=== PATIENT | female | born 1970 | race Caucasian/White ===

== ENCOUNTER 2020-03-13 15:00 | Emergency (ER) | payer SELFPAY ==
[2020-03-13 15:06] VITALS: BP 138/71; PULSE 98; RESP 18; TEMP 36.7; O2SAT 98; BMI 34.3
--- NOTE | 2020-03-13 15:24 | USR_ITS ---
PROCEDURE INFORMATION: Exam: US Pelvis, Transvaginal Exam date and time: 03/13/2020 4:13 PM Age: 49 years old Clinical indication: Menstruation abnormalities; Excessive menstruation; With irregular cycle; Prior surgery; Surgery date: 6+ months; Surgery type: Tubal; Additional info: Vag bleed TECHNIQUE: Imaging protocol: Real-time transvaginal pelvic ultrasound with image documentation. Transvaginal imaging was used for better evaluation of the endometrium and adnexa. COMPARISON: No relevant prior studies available. FINDINGS: Uterus/cervix: Multiple Nabothian cysts in the cervix. The uterus measures 9.1 x 5.8 x 6.8 cm. Heterogenous mass in the left myometrium consistent with a fibroid. This abuts the endometrium. This measures 2.2 x 2.3 x 2.6 cm. The endometrium measures 7.9 mm. There is flow in the endometrium on Doppler imaging, it is uncertain whether this could represent hemorrhage, possible endometrial hyperplasia, or an endometrial mass. Right adnexa: The right ovary measures 2.6 x 2.2 x 2.4 cm. There is flow in the right ovary on Doppler imaging. Dominant follicle in the right ovary measuring 1.4 x 0.6 x 1.3 cm. No abnormal adnexal masses. Left adnexa: The left ovary is not definitely visualized. No abnormal adnexal masses. Free fluid: No free fluid in the pelvis. US/US transvaginal [id number] IMPRESSION: 1. The endometrium measures 7.9 mm. There is flow in the endometrium on Doppler imaging, it is uncertain whether this could represent hemorrhage, endometrial hyperplasia or an endometrial mass. Recommend clinical correlation. 2. Intrauterine fibroid in the left myometrium abutting the endometrium. 3. The left ovary is not definitely visualized. No abnormal adnexal masses. 4. Incidental/nonacute findings are listed in the report.
--- NOTE | 2020-03-13 15:26 | W.ED.FEMALGU ---
Documented by User: DELFINA Lindo 03/13/20 15:28 HPI - Female Genitourinary General: Chief complaint: Vaginal Bleeding Stated complaint: VAGINAL BLEEDING Time Seen by Provider: 03/13/20 15:16 History of Present Illness: HPI Narrative: Patient states that the bleeding started yesterday has been pretty heavy denies any problems does 3 of intermittent periods and frequent periods. 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 Patient said she also lifted a fridge yesterday and felt a pull down that area and thought that might be related to it. MD elicited complaint: vaginal bleeding Onset (ago): hour(s) Location of symptoms: vaginal Severity: moderate Vaginal discharge: none Vaginal bleeding: heavy, bright red and # pads per day (4) Exacerbating factors: none Relieving factors: none Associated symptoms: Reports no associated symptoms; Deny abdominal pain, headache(s) or nausea Review of Systems Const: Denies: fever(s), chills or body aches Eyes: Denies: change in vision or blurry vision ENMT: Denies: throat pain or nasal congestion Card: Denies: chest pain or dyspnea on exertion Resp: Denies: dyspnea, productive cough or non-productive cough GI: Denies: abdominal pain, nausea or vomiting : Reports: vaginal bleeding Musc: Denies: extremity pain Skin/Breast: Denies: rash Neuro: Denies: headache(s) Psych: Denies: anxiety or depression Robinson/Lymph: Denies: easy bruising PFSH ED PFSH: Social History Smoking and tobacco status: current every day smoker Physical Exam Const: COMMON NORMALS: no acute distress, average body habitus and patient oriented x3 HENMT: COMMON NORMALS: normocephalic HEAD & SCALP: normal to inspection and normocephalic FACE & SINUS: normal facial exam Eye: COMMON NORMALS: conjunctivae normal GENERAL EYE: appearance normal, both eyes and all related structures CONJUNCTIVA: Yes conjunctivae normal Neck/C-Spine: COMMON NORMALS: no JVD Chest: COMMONS NORMALS: normal inspection of the chest Resp: COMMON NORMALS: normal respiratory effort and clear to auscultation bilaterally AUSCULTATION: clear to auscultation bilaterally Cardio: COMMON NORMALS: no JVD, regular rate and regular rhythm RATE: regular rate RHYTHM: regular rhythm GI: COMMON NORMALS: Normal to inspection, nondistended, normoactive bowel sounds present Extremity: COMMON NORMALS: normal to inspection and full ROM Neuro: COMMON NORMALS: patient oriented x3 Course Vital Signs: Vital signs: Vital Signs Temperature 98.1 F 03/13/20 15:06 Pulse Rate 84 03/13/20 17:05 Respiratory Rate 14 03/13/20 17:05 Blood Pressure 152/84 03/13/20 17:05 Pulse Oximetry 98 03/13/20 17:05 MDM - Female Lab Data: Labs: Lab Results 03/13/20 Range/Units 15:35 WBC 6.2 (4.0-10.0) 10^3/ uL RBC 5.24 (4.1-5.3) 10^6/u L Hgb 13.6 (11.5-15.3) g/dL Hct 43.6 (37.0-47.0) % MCV 83.2 (81-99) fL MCH 26.0 L (28.0-34.0) pg MCHC 31.2 (30.0-36.0) g/dL RDW 14.3 (12.1-15.1) % Plt Count 193 (130-400) 10^3/c mm MPV 10.8 H (7.4-10.4) fL Neut % (Auto) 57.7 % Lymph % (Auto) 33.3 % [place] % (Auto) 5.6 % Eos % (Auto) 2.1 % Baso % (Auto) 1.1 % Neut # (Auto) 3.6 (1.8-7.7) 10^3/u L Lymph # (Auto) 2.1 (0.8-4.8) 10^3/u L [place] # (Auto) 0.4 (0.2-0.9) 10^3/u L Eos # (Auto) 0.1 (0.0-0.8) 10^3/u L Baso # (Auto) 0.1 (0.0-0.1) 10^3/u L Nucleated RBC % (a uto) 0 % Nucleated RBCs # 0.0 /100WBC Discharge Plan Discharge Patient Disposition: Home, Self-Care Clinical Impression: Dysfunctional uterine bleeding Condition: Stable Prescriptions: No Action aspirin 325 mg Tablet 325 mg PO DAILY RF: 0 Discharge Orders: Discharge Order (Routine); Ordered 03/13/20 Ordered By: Jakob Bailey Referrals: Jolene Espinoza DPM [Primary Care Provider] - Discharge Diet: Usual diet Discharge Activity: Increase activity as tolerated Activity Restrictions/Additional Instructions: Drink plenty of fluids. Activity as tolerated. Avoid heavy lifting with bleeding. Return to the ER for increased bleeding with more than 1 pad in 1 hour, or high fever. Follow-up with [facility] for further treatment regarding abnormality on ultrasound. Discharge Date/Time: 03/13/20 17:18 Coding Level of Care Code ED Vibrator Operator for Chg Fwd Exam Comprehensive Documented by User: DELFINA June 03/13/20 17:27 HPI - Female Genitourinary General: Chief complaint: Vaginal Bleeding Stated complaint: VAGINAL BLEEDING Time Seen by Provider: 03/13/20 15:16 PFSH ED PFSH: Social History Smoking and tobacco status: current every day smoker Course ED course: 1700, received patient from Daren Zuniga, Nurse practitioner, awaiting US report, states patient should be discharged with follow-up. wjw Vital Signs: Vital signs: Vital Signs Temperature 98.1 F 03/13/20 15:06 Pulse Rate 84 03/13/20 17:05 Respiratory Rate 14 03/13/20 17:05 Blood Pressure 152/84 03/13/20 17:05 Pulse Oximetry 98 03/13/20 17:05 MDM - Female MDM Narrative: Medical decision making narrative: Patient comes in with bleeding starting this morning. Patient reports she has been having episodes of heavy bleeding with her periods each month. Patient starts that L bleed real heavy for now slow down and then she will get another flow of blood. Patient appears well. Patient appears in no acute distress. Exam was normal. Vital signs were normal. Differential diagnosis includes dysfunctional uterine bleeding, metromenorrhagia, fibroid tumor. CBC noted a hemoglobin hematocrit 13 and 43.6. Ultrasound of the pelvis noted a probable intrauterine fibroid, and possible endometrial hyperplasia. Patient's bleeding was controlled at this time with no significant hemorrhaging. Reviewed exam with patient with recommendations for follow-up with [facility]. Barrier to care consists of patient's lack of insurance. Will request case management to assist patient with follow-up with [facility]. Also discussed need to return to the ER for worsening bleeding or high fever. Patient reported understanding and agreed to plan. Lab Data: Labs: Lab Results 03/13/20 Range/Units 15:35 WBC 6.2 (4.0-10.0) 10^3/ uL RBC 5.24 (4.1-5.3) 10^6/u L Hgb 13.6 (11.5-15.3) g/dL Hct 43.6 (37.0-47.0) % MCV 83.2 (81-99) fL MCH 26.0 L (28.0-34.0) pg MCHC 31.2 (30.0-36.0) g/dL RDW 14.3 (12.1-15.1) % Plt Count 193 (130-400) 10^3/c mm MPV 10.8 H (7.4-10.4) fL Neut % (Auto) 57.7 % Lymph % (Auto) 33.3 % [place] % (Auto) 5.6 % Eos % (Auto) 2.1 % Baso % (Auto) 1.1 % Neut # (Auto) 3.6 (1.8-7.7) 10^3/u L Lymph # (Auto) 2.1 (0.8-4.8) 10^3/u L [place] # (Auto) 0.4 (0.2-0.9) 10^3/u L Eos # (Auto) 0.1 (0.0-0.8) 10^3/u L Baso # (Auto) 0.1 (0.0-0.1) 10^3/u L Nucleated RBC % (a uto) 0 % Nucleated RBCs # 0.0 /100WBC Discharge Plan Discharge Patient Disposition: Home, Self-Care Clinical Impression: Dysfunctional uterine bleeding Condition: Stable Prescriptions: No Action aspirin 325 mg Tablet 325 mg PO DAILY RF: 0 Discharge Orders: Discharge Order (Routine); Ordered 03/13/20 Ordered By: Jakob Bailey Referrals: Jolene Espinoza DPM [Primary Care Provider] - Discharge Diet: Usual diet Discharge Activity: Increase activity as tolerated Activity Restrictions/Additional Instructions: Drink plenty of fluids. Activity as tolerated. Avoid heavy lifting with bleeding. Return to the ER for increased bleeding with more than 1 pad in 1 hour, or high fever. Follow-up with [facility] for further treatment regarding abnormality on ultrasound. Discharge Date/Time: 03/13/20 17:18 Coding Level of Care Code ED Vibrator Operator for Chg Fwd Exam Comprehensive
[2020-03-13 15:42] LABS: Basophils # 0.1 10^3/uL (0.0-0.1); Basophils % 1.1 %; Eosinophils # 0.1 10^3/uL (0.0-0.8); Eosinophils % 2.1 %; Hematocrit 43.6 % (37.0-47.0); Hemoglobin 13.6 g/dL (11.5-15.3); Lymphocytes # 2.1 10^3/uL (0.8-4.8); Lymphocytes % 33.3 %; Mean Corpuscular HGB Conc 31.2 g/dL (30.0-36.0); Mean Corpuscular Volume 83.2 fL (81-99); Mean Platelet Volume 10.8 fL (7.4-10.4); Monocytes # 0.4 10^3/uL (0.2-0.9); Monocytes % 5.6 %; Neutrophils # 3.6 10^3/uL (1.8-7.7); Neutrophils % 57.7 %; Nucleated Red Blood Cells % 0 %; Platelet Count 193 10^3/cmm (130-400); Red Blood Count 5.24 10^6/uL (4.1-5.3); Red Cell Distribution Width 14.3 % (12.1-15.1); White Blood Count 6.2 10^3/uL (4.0-10.0)
[2020-03-13 15:56] VITALS: BP 123/95; RESP 89; O2SAT 99
[2020-03-13 17:05] VITALS: BP 152/84; PULSE 84; RESP 14; O2SAT 98
--- NOTE | 2020-03-14 08:25 | DCPLANNER ---
digital content manager had message to schedule a follow up appointment for patient with [facility]. digital content manager called the [facility] clinic, spoke with Radha, gave clinic patients information. digital content manager was told that patients information would be printed and reviewed. Clinic will call residential case manager and patient with appointment information.
--- NOTE | 2020-03-14 14:03 | DCPLANNER ---
Patient has a follow up appointment scheduled for Friday, March 29, 2020 at 1:30 with [facility]. Clinic will call patient with appointment information.
--- NOTE | 2020-03-30 14:56 | DCPLANNER ---
Patients appointment scheduled for 03.29.20 with [facility], was cancelled.
== END 2020-03-13 17:18 | disposition home or self-care (01) ==
PROVIDERS: Nurse Practitioner Family; Emergency Provider Nurse Practitioner Family; PCP Nurse Practitioner
DX: N93.8 Other specified abnormal uterine and vaginal bleeding (principal); Z79.82 Long term (current) use of aspirin; F17.210 Nicotine dependence, cigarettes, uncomplicated
CPT/HCPCS: 12345; 36415; 76830; 85025; 99281; 99283

== ENCOUNTER 2020-04-14 19:22 | Emergency (ER) | payer SELFPAY ==
[2020-04-14 19:25] VITALS: BP 146/94; PULSE 97; RESP 19; TEMP 36.4; O2SAT 99; BMI 33.5
--- NOTE | 2020-04-14 19:48 | W.ED.SKABFB ---
HPI - Skin/Abscess/Foreign Bdy General: Chief complaint: General Medical Stated complaint: knot on head Time Seen by Provider: 04/14/20 19:31 Source: patient Mode of arrival: ambulatory Limitations: no limitations History of Present Illness: HPI narrative: Patient is a 49-year-old female who presents to ED today with complaint of a swollen area to her posterior scalp that she noticed today. Patient tells me she was seen at [place] [facility] and prescribed Bactrim. She is here seeking a second opinion. Patient denies any known bites or injury/trauma. Denies previous lesions. She has not noticed any drainage from the wound. She also has a complaint of a possible spider bite to her left lower back that she has had over the past 3 to 4 days. She does admit that this seems to be improving. MD complaint: insect bite/sting and abscess/boil Tetanus up to date: yes Location: head and back Severity: mild Quality: burning Relieving factors: none Exacerbating factors: none Context: none Associated symptoms: Reports no associated symptoms; Deny chills, fever(s), nausea or vomiting Review of Systems Const: Denies: fever(s), chills, body aches, fatigue or malaise Eyes: Denies: change in vision, blurry vision, photophobia, floaters or seeing flashes GI: Denies: nausea or vomiting Musc: Denies: neck pain or back pain Skin/Breast: Reports: new lesions (scalp and back) Neuro: Denies: headache(s), numbness in extremities, weakness in extremities, sensory changes, lack of coordination, difficulty walking, frequent falls, dizziness, vertigo, confusion, Slurred speech present or difficulty communicating thoughts [facility] ED PFSH: Social History Smoking and tobacco status: current every day smoker Physical Exam Const: COMMON NORMALS: no acute distress, patient oriented x3, no limitations and alert ORIENTATION/CONSCIOUSNESS: Yes oriented to person, Yes oriented to place and Yes oriented to time HENMT: COMMON NORMALS: normocephalic and atraumatic HEAD & SCALP: normocephalic, atraumatic and other (see below) FACE & SINUS: normal facial exam OTHER: pt has small 2cm area to posterior scalp that is mildly erythematous and indurated; there is no fluctuance/abscess; area is not freely mobile Neck/C-Spine: COMMON NORMALS: full ROM, no lymphadenopathy and no meningeal signs Back/Pelvis: OTHER: pt has 1in area of erythema with central scab to L lower back; there is no swelling, induration, or fluctuance noted; no surrounding cellulitis Neuro: MATHEW COMA SCALE: document GCS findings Mathew coma scale eye opening: Spontaneous Mathew coma scale verbal response: Orientated Mathew coma scale motor response: Obey commands Mathew coma scale total score: 15 COMMON NORMALS: patient oriented x3, CN's II-XII intact bilaterally, moves all extremities, no focal motor deficits, no sensory deficits noted and gait normal SENSORIUM/ORIENTATION: Yes alert, Yes oriented to person, Yes oriented to place and Yes oriented to time MENINGEAL SIGNS: Yes no meningeal signs Skin: OTHER: see scalp/back assessment Course Vital Signs: Vital signs: Vital Signs Temperature 97.6 F 04/14/20 19:25 Pulse Rate 97 04/14/20 19:25 Respiratory Rate 16 04/14/20 19:58 Blood Pressure 146/94 04/14/20 19:25 Pulse Oximetry 99 04/14/20 19:25 MDM - Skin/Abscess/Foreign Bdy MDM Narrative: Medical decision making narrative: at this time both lesions look amenable for outpt treatment Bactrim; return to ED precautions given Discharge Plan Discharge Patient Disposition: Home Clinical Impression: Skin lesion of scalp, Skin lesion of back Condition: Stable Prescriptions: No Action aspirin 325 mg Tablet 325 mg PO DAILY RF: 0 Discharge Orders: Discharge Order (Routine); Ordered 04/14/20 Ordered By: Neelima Stewart Referrals: Jolene Espinoza DPM [Primary Care Provider] - Activity Restrictions/Additional Instructions: As discussed continue your Bactrim as prescribed. You may seek re-evaluation if lesion to your scalp or back continues to worsen despite being on antibiotics over the next 48 to 72 hours. Avoid picking, scratching, poking wounds. Keep clean with warm soap and water. Discharge Date/Time: 04/14/20 19:59 Coding Level of Care Code ED Sand Mill Operator for Aria Fwd Exam Expanded Problem Focused
[2020-04-14 19:58] VITALS: RESP 16
== END 2020-04-14 19:59 | disposition home or self-care (01) ==
PROVIDERS: Emergency Provider Physician Assistant; PCP Nurse Practitioner
DX: L98.9 Disorder of the skin and subcutaneous tissue, unspecified (principal); Z79.82 Long term (current) use of aspirin; F17.210 Nicotine dependence, cigarettes, uncomplicated
CPT/HCPCS: 12345; 99281

== ENCOUNTER 2020-05-06 02:36 | Emergency (ER) | payer SELFPAY ==
[2020-05-06 02:50] VITALS: BP 150/90; PULSE 91; RESP 18; TEMP 36.7; O2SAT 97; BMI 34.3
--- NOTE | 2020-05-06 03:47 | XR_ITS ---
WS: [id number] EXAM: AP CHEST: PORTABLE UPRIGHT DATE OF EXAM: 05/06/2020, 0405 hours COMPARISON: Chest x-ray from 11/15/2014 HISTORY: Patient is 49 years old with shortness of breath. Burning sensation in the chest. FINDINGS: The cardiac silhouette is normal in size. The mediastinal contours are normal. The pulmonary vas cularity is normal. The lungs are clear of infiltrate. There is no effusion or pneumothorax. No ac zan bony abnormality is seen. XR/XR chest 1V portable [id number] IMPRESSION: No acute pulmonary disease.
[2020-05-06 03:48] VITALS: BP 132/96; PULSE 94; RESP 18; O2SAT 97
[2020-05-06 05:21] VITALS: BP 106/76; PULSE 88; RESP 16; O2SAT 98
[2020-05-06 05:21] LABS: SARS Covid-2 Antigen Negative (Negative)
[2020-05-06 05:51] LABS: Rapid Strep A Test Negative (Negative)
--- NOTE | 2020-05-06 19:16 | W.ED.SOB ---
HPI - SOB/Dyspnea General: Chief Complaint: Shortness of Breath/Dyspnea Stated Complaint: spider bite/ took bacterium/ think od/ covid? Time Seen by Provider: 05/06/20 03:42 History of Present Illness: HPI Narrative: 49-year-old female with multiple complaints. She says for the last 4 to 5 days she has had a burning sensation on and off in her chest with a cough. She has been mildly short of breath. She has had a rash that is now improved. She had a fever at home. The fever is now improved as well. MD elicited complaint: shortness of breath and cough Onset (ago): day(s) Context: recent illness Timing: intermittent Exacerbating factors: lying flat Relieving factors: rest Associated symptoms: Reports chest congestion, chest pain (Burning), cough, fever(s) and nausea; Deny palpitations or vomiting Review of Systems Const: Reports: fever(s) Card: Reports: chest pain (Burning); Denies: palpitations Resp: Reports: chest congestion GI: Reports: nausea; Denies: vomiting : Denies: flank pain or difficulty voiding Neuro: Reports: headache(s) PFSH ED PFSH: Social History Smoking and tobacco status: current every day smoker Physical Exam Const: GENERAL APPEARANCE: well developed ORIENTATION/CONSCIOUSNESS: Yes oriented to person, Yes oriented to place and Yes oriented to time HENMT: COMMON NORMALS: normocephalic, external ears normal and Normal external nose present HEAD & SCALP: normocephalic; no scalp tenderness NOSE: Normal external nose present and No nasal discharge present EXTERNAL EAR: Yes external ears normal MOUTH: tongue normal TEETH & GINGIVA: no abnormal tooth and associated gingiva THROAT: posterior oropharynx normal; no peritonsillar mass Eye: COMMON NORMALS: Equal, round and reactive pupils present, EOMs intact bilaterally and conjunctivae normal EYELID: eyelids normal CONJUNCTIVA: Yes conjunctivae normal PUPIL: Yes Equal, round and reactive pupils present Neck/C-Spine: GENERAL: No tracheal deviation Chest: COMMONS NORMALS: normal inspection of the chest CHEST: No tenderness Resp: COMMON NORMALS: clear to auscultation bilaterally EFFORT & INSPECTION: No tachypneic, No respiratory distress, No retractions, No uses accessory muscles and No tracheal deviation AUSCULTATION: clear to auscultation bilaterally, no rhonchi, no wheezes and lung sounds not diminished Cardio: COMMON NORMALS: regular rate and regular rhythm RATE: regular rate RHYTHM: regular rhythm HEART SOUNDS: no murmurs PERIPHERAL PULSES: radial pulses present GI: INSPECTION: No abdominal distension AUSCULTATION: No Hyperactive bowel sounds present and No Hypoactive bowel sounds present PALPATION: No Guarding due to palpation present (GI) and No Rigid due to palpation PERCUSSION: no dullness to percussion and no tympanic to percussion Neuro: SENSORIUM/ORIENTATION: Yes oriented to person, Yes oriented to place and Yes oriented to time Psych: COMMON NORMALS: mental status grossly normal Skin: COMMON NORMALS: no rashes or lesions noted GENERAL SKIN EXAM: no rashes or lesions noted Course Vital Signs: Vital signs: Vital Signs Temperature 98.0 F 05/06/20 02:50 Pulse Rate 88 05/06/20 05:21 Respiratory Rate 16 05/06/20 05:21 Blood Pressure 106/76 05/06/20 05:21 Pulse Oximetry 98 05/06/20 05:21 MDM - SOB/Dyspnea MDM Narrative: Medical decision making narrative: Patient's chest x-ray is negative. Her oxygen saturations are normal. She is afebrile here. She has a negative COVID 19 test, and a negative strep test. She will be treated for bronchitis Lab Data: Attestation: I reviewed the patient's lab results. Labs: Lab Results 05/06/20 05/06/20 Range/Units 04:52 05:18 SARS-CoV-2 Ag (Rap id) Negative (Negative) Group A Strep Rapi d Negative (Negative) Discharge Plan Discharge Patient Disposition: Home Clinical Impression: Bronchitis Condition: Stable Prescriptions: New doxycycline hyclate 100 mg capsule 100 mg PO BID 7 Days Qty: 14 RF: 0 No Action aspirin 325 mg Tablet 325 mg PO DAILY RF: 0 Discharge Orders: Discharge Order (Routine); Ordered 05/06/20 Ordered By: Serge Jacobson Referrals: Jolene Espinoza DPM [Primary Care Provider] - 4-7 days Discharge Diet: Advance as tolerated Discharge Activity: Increase activity as tolerated Patient Instructions: Acute Bronchitis (ED) Activity Restrictions/Additional Instructions: Return for worsening shortness of breath, fever greater than 100 despite 2-3 doses of antibiotics, other concerning symptoms. Discharge Date/Time: 05/06/20 06:32 Coding Level of Care Code ED Developer Programmer for Aria Ramirez
== END 2020-05-06 06:32 | disposition home or self-care (01) ==
PROVIDERS: Emergency Provider Emergency Medicine; PCP Nurse Practitioner
DX: J40 Bronchitis, not specified as acute or chronic (principal); F17.210 Nicotine dependence, cigarettes, uncomplicated
CPT/HCPCS: 12345; 71045; 87081; 87426; 87880; 99282; 99283

== ENCOUNTER 2020-06-15 19:01 | Emergency (ER) | payer SELFPAY ==
--- NOTE | 2020-06-15 19:05 | XR_ITS ---
WS: [id number] Portable AP upright chest, 06/15/2020 Clinical Data: cough Comparison: Portable chest, 05/06/2020. Findings: No nodules, masses or effusions are seen. The heart is normal. The pulmonary vascularity is not increased. No pneumonia or pneumothorax is seen. XR/XR chest 1V portable [id number] Impression: Negative chest.
[2020-06-15 19:15] VITALS: BP 139/90; PULSE 90; RESP 18; TEMP 36.3; O2SAT 96; BMI 34.3
--- NOTE | 2020-06-15 19:36 | ECG_ITS ---
[facility] Test Date: 2020-06-15 Pat Name: Marcella Whitley Department: Room: Gender: Female Dial Polisher: : 1970 Requested By: Mayte Street Order Number: [id number] Rivera MD: David Douglas M.D. Measurements Intervals Coleman Rate: 80 P: 53 [place]: 167 QRS: -8 QRSD: 93 T: 44 QT: 368 QTc: 425 Interpretive Statements SINUS RHYTHM LOW QRS VOLTAGE IN PRECORDIAL LEADS [QRS DEFLECTION < 1.0 mV IN CHEST LEADS] INCOMPLETE RIGHT BUNDLE BRANCH BLOCK [90+ ms QRS DURATION, TERMINAL R IN V1/V2, 40+ ms S IN I/aVL/V4/V5/V6] No previous ECG available for comparison Electronically Signed On 06-16-2020 20:37:17 CDT by David Douglas M.D. [id number]
--- NOTE | 2020-06-15 19:38 | W.ED.SOB ---
HPI - SOB/Dyspnea General: Chief Complaint: Shortness of Breath/Dyspnea Stated Complaint: sob, cough Time Seen by Provider: 06/15/20 19:24 Source: patient Mode of arrival: ambulatory Limitations: no limitations History of Present Illness: HPI Narrative: Marcella is a nice 49-year-old female who comes in complaining of cough, sore throat, burning chest pain and exposure to COVID-19 virus. The patient has a known exposure in her . She began to run a fever yesterday but has only been up to 99 degrees. Patient denies any other chest pains only a burning in her chest. Her cough is nonproductive. Complains of diaphoresis and chills. Patient has other family members which she believes also have the virus as they have similar symptoms. She is unaware of anything that makes her symptoms better or worse. She denies any other complaints or concerns at this time. Associated symptoms: Reports chest pain and fever(s); Deny abdominal pain, chest congestion, dizziness, extremity pain, hemoptysis, nausea or vomiting Review of Systems Const: Reports: fever(s), chills, body aches, fatigue and malaise Eyes: Denies: change in vision, blurry vision, photophobia, eye discomfort, eye discharge, eye redness or yellow eyes ENMT: Reports: throat pain; Denies: odynophagia, hoarseness, swelling of lips/tongue, ear or mastoid pain, ear discharge, change in hearing or nasal discharge Card: Reports: chest pain Resp: Reports: dyspnea and non-productive cough; Denies: productive cough, wheezing, hemoptysis or chest congestion GI: Denies: abdominal pain, nausea, vomiting, hematemesis, coffee ground emesis, heartburn, diarrhea, constipation, GI cramping, hematochezia or melena : Denies: flank pain, dysuria, urinary frequency, urinary urgency or hematuria Musc: Denies: neck pain, back pain, extremity pain, extremity swelling, joint pain, joint swelling, joint redness, joint warmth or joint stiffness Skin/Breast: Denies: rash, pruritus, erythema, skin pain or skin tenderness Neuro: Denies: headache(s), numbness in extremities, weakness in extremities, sensory changes, lack of coordination, difficulty walking, dizziness, vertigo, confusion, Slurred speech present or seizure-like activity Robinson/Lymph: Denies: easy bruising, easy bleeding, petechiae, purpura or enlarged lymph nodes All/Imm: Denies: urticaria, throat swelling, tongue swelling, facial swelling or acute wheezing PFSH ED PFSH: Medical History (Updated 06/15/20 @ 21:35 by Mayte Gant) DVT (deep venous thrombosis) Uterine fibroid Social History Smoking and tobacco status: current every day smoker Physical Exam Const: COMMON NORMALS: no acute distress, patient oriented x3, no limitations and alert GENERAL APPEARANCE: cooperative HENMT: COMMON NORMALS: normocephalic, atraumatic, external ears normal, EAC's normal and Normal external nose present HEAD & SCALP: normal to inspection, normocephalic and atraumatic FACE & SINUS: normal facial exam and face symmetric NOSE: Normal external nose present and Normal nares present EXTERNAL EAR: Yes external ears normal EXTERNAL AUDITORY CANAL: EAC's normal MOUTH: Normal oral and palatal mucosa present, lip normal and tongue normal Eye: COMMON NORMALS: Equal, round and reactive pupils present and conjunctivae normal GENERAL EYE: appearance normal, both eyes and all related structures ALIGNMENT: Yes alignment normal PERIORBITAL: periorbital findings normal EYELID: eyelids normal CONJUNCTIVA: Yes conjunctivae normal SCLERA: sclerae normal PUPIL: Yes Equal, round and reactive pupils present Neck/C-Spine: COMMON NORMALS: full ROM, no lymphadenopathy, supple, no meningeal signs and no JVD GENERAL: Yes normal visual inspection and Yes trachea midline Chest: COMMONS NORMALS: normal inspection of the chest and normal palpation of entire chest wall Resp: COMMON NORMALS: normal respiratory effort, No retractions, No use of accessory muscles and clear to auscultation bilaterally EFFORT & INSPECTION: Yes able to speak in complete sentences and Yes symmetric chest movement AUSCULTATION: clear to auscultation bilaterally, no crackles, no rales, no rhonchi and no wheezes Cardio: COMMON NORMALS: no JVD, regular rate, regular rhythm, S1 normal heart sound present and S2 normal heart sound present RATE: regular rate RHYTHM: regular rhythm HEART SOUNDS: S1 normal heart sound present, S2 normal heart sound present, no click, no gallops, no murmurs and no rubs GI: COMMON NORMALS: Soft to palpation and No hepatosplenomegaly present PALPATION: Yes Soft to palpation, No Tenderness to palpation present (GI), No Guarding due to palpation present (GI), No Rigid due to palpation, Yes No hepatosplenomegaly present, No Hernia present, No Palpable mass present and No Pulsatile mass present : COMMON NORMALS: Yes no CVA tenderness BLADDER/KIDNEY EXAM: Yes no CVA tenderness EXTERNAL FEMALE EXAM: No Hernia present Back/Pelvis: COMMON NORMALS: no CVA tenderness, thoracic and lumbar spine normal to inspection, no thoracic nor lumbar tenderness and thoraco-lumbar ROM normal Extremity: COMMON NORMALS: normal to inspection, full ROM, capillary refill normal, no joint enlargement, no clubbing, cyanosis or edema and no calf tenderness Neuro: COMMON NORMALS: patient oriented x3, CN's II-XII intact bilaterally, moves all extremities, no focal motor deficits and no sensory deficits noted SENSORIUM/ORIENTATION: Yes alert MENINGEAL SIGNS: Yes no meningeal signs SPEECH: speech normal Psych: COMMON NORMALS: mental status grossly normal, Normal thought process present, cooperative, normal affect, speech normal and activity/motor behavior normal SPEECH: Yes normal speech THOUGHT PROCESS: Normal thought process present Skin: COMMON NORMALS: no rashes or lesions noted, turgor normal, no jaundice, no petechiae and no mottling GENERAL SKIN EXAM: no rashes or lesions noted and turgor normal Course Vital Signs: Vital signs: Vital Signs Temperature 98.3 F 06/15/20 21:44 Pulse Rate 88 06/15/20 21:44 Respiratory Rate 18 06/15/20 21:44 Blood Pressure 121/71 06/15/20 21:44 Pulse Oximetry 98 06/15/20 21:44 MDM - SOB/Dyspnea MDM Narrative: Medical decision making narrative: Marcella is a very nice 49-year-old female who comes in complaining of cough and congestion. She is COVID negative. I will go ahead and treat her for bronchitis. See no evidence of acute life-threatening pneumonia or respiratory distress. Patient does agree to return should her symptoms change or worsen but at this time she is feeling better and would like to be discharged. Patient's d-dimer is negative as well as her cardiac markers. I see no sign of PE or acute coronary syndrome. Lab Data: Attestation: I reviewed the patient's lab results. Labs: Lab Results 06/15/20 06/15/20 06/15/20 Range/Units 20:00 20:00 20:00 WBC 7.4 (4.0-10.0) 10^3/ uL RBC 5.71 H (4.1-5.3) 10^6/u L Hgb 14.7 (11.5-15.3) g/dL Hct 47.9 H (37.0-47.0) % MCV 83.9 (81-99) fL MCH 25.7 L (28.0-34.0) pg MCHC 30.7 (30.0-36.0) g/dL RDW 13.3 (12.1-15.1) % Plt Count 273 (130-400) 10^3/c mm MPV 10.9 H (7.4-10.4) fL Neut % (Auto) 48.1 % Lymph % (Auto) 43.2 % [place] % (Auto) 6.0 % Eos % (Auto) 1.2 % Baso % (Auto) 1.2 % Neut # (Auto) 3.55 (1.8-7.7) 10^3/u L Lymph # (Auto) 3.2 (0.8-4.8) 10^3/u L [place] # (Auto) 0.4 (0.2-0.9) 10^3/u L Eos # (Auto) 0.1 (0.0-0.8) 10^3/u L Baso # (Auto) 0.1 (0.0-0.1) 10^3/u L Nucleated RBC % (a uto) 0 % Nucleated RBCs # 0.0 /100WBC PT 11.80 L (12.1-14.9) SECO NDS INR 0.84 (0.8-1.2) APTT 29.6 (23.9-36.7) SECO NDS Fibrinogen 347 (174-498) mg/dL D-Dimer 0.46 (0-0.59) ug/mIFE U Specimen Type Sample Site ABG pH (7.35-7.45) ABG pCO2 (35-45) mmHg ABG pO2 (80.0-100.0) mmH g ABG HCO3 (22-26) mmol/L ABG Base Excess (-2.0-2.0) mmol/ L Ellis Test Hematocrit (37-47) % O2 Delivery Device Cloth Printer Helper ID Sodium 137 (136-145) mmol/L Potassium 4.0 (3.5-5.1) mmol/L Chloride 102 (98-107) mmol/L Carbon Dioxide 23 (22-29) mmol/L Anion Gap 16.0 (5-19) BUN 13 (6-20) mg/dL Creatinine 0.9 (0.5-0.9) mg/dL GFR Calculation 66.5 L (90-130) mL/min Glucose 148 H (65-115) mg/dL Calculated Osmolal ity 287 (285-295) mOsm/k g Lactic Acid (0.5-2.2) mmol/L Calcium 9.8 (8.5-10.5) mg/dL Magnesium 2.1 (1.7-2.3) mg/dL Total Bilirubin 0.2 (0.15-1.2) mg/dL AST 18 (0-32) U/L ALT 25 (0-33) U/L Alkaline Phosphata se 67 (35-105) IU/L Lactate Dehydrogen ase 157 (135-214) U/L Troponin T Gen 5 n g/L (0-10) ng/L C-Reactive Protein 1.6 (0.0-4.9) mg/L NT-Pro-B Natriuret Pep 5 (0-125) pg/mL Total Protein 7.1 (6.6-8.7) g/dL Albumin 4.7 (3.5-5.2) g/dL Globulin 2.4 (1.3-4.6) g/dL Procalcitonin 0.03 (0-0.5) ng/mL Influenza Type A A g (Negative) Influenza Type B A g (Negative) SARS-CoV-2 Ag (Rap id) (Negative) 06/15/20 06/15/20 06/15/20 Range/Units 20:00 20:00 20:15 WBC (4.0-10.0) 10^3/ uL RBC (4.1-5.3) 10^6/u L Hgb (11.5-15.3) g/dL Hct (37.0-47.0) % MCV (81-99) fL MCH (28.0-34.0) pg MCHC (30.0-36.0) g/dL RDW (12.1-15.1) % Plt Count (130-400) 10^3/c mm MPV (7.4-10.4) fL Neut % (Auto) % Lymph % (Auto) % [place] % (Auto) % Eos % (Auto) % Baso % (Auto) % Neut # (Auto) (1.8-7.7) 10^3/u L Lymph # (Auto) (0.8-4.8) 10^3/u L [place] # (Auto) (0.2-0.9) 10^3/u L Eos # (Auto) (0.0-0.8) 10^3/u L Baso # (Auto) (0.0-0.1) 10^3/u L Nucleated RBC % (a uto) % Nucleated RBCs # /100WBC PT (12.1-14.9) SECO NDS INR (0.8-1.2) APTT (23.9-36.7) SECO NDS Fibrinogen (174-498) mg/dL D-Dimer (0-0.59) ug/mIFE U Specimen Type Sample Site ABG pH (7.35-7.45) ABG pCO2 (35-45) mmHg ABG pO2 (80.0-100.0) mmH g ABG HCO3 (22-26) mmol/L ABG Base Excess (-2.0-2.0) mmol/ L Ellis Test Hematocrit (37-47) % O2 Delivery Device Cloth Printer Helper ID Sodium (136-145) mmol/L Potassium (3.5-5.1) mmol/L Chloride (98-107) mmol/L Carbon Dioxide (22-29) mmol/L Anion Gap (5-19) BUN (6-20) mg/dL Creatinine (0.5-0.9) mg/dL GFR Calculation (90-130) mL/min Glucose (65-115) mg/dL Calculated Osmolal ity (285-295) mOsm/k g Lactic Acid 1.9 (0.5-2.2) mmol/L Calcium (8.5-10.5) mg/dL Magnesium (1.7-2.3) mg/dL Total Bilirubin (0.15-1.2) mg/dL AST (0-32) U/L ALT (0-33) U/L Alkaline Phosphata se (35-105) IU/L Lactate Dehydrogen ase (135-214) U/L Troponin T Gen 5 n g/L 6 (0-10) ng/L C-Reactive Protein (0.0-4.9) mg/L NT-Pro-B Natriuret Pep (0-125) pg/mL Total Protein (6.6-8.7) g/dL Albumin (3.5-5.2) g/dL Globulin (1.3-4.6) g/dL Procalcitonin (0-0.5) ng/mL Influenza Type A A g (Negative) Influenza Type B A g (Negative) SARS-CoV-2 Ag (Rap id) Negative (Negative) 06/15/20 06/15/20 Range/Units 20:19 20:45 WBC (4.0-10.0) 10^3/ uL RBC (4.1-5.3) 10^6/u L Hgb (11.5-15.3) g/dL Hct (37.0-47.0) % MCV (81-99) fL MCH (28.0-34.0) pg MCHC (30.0-36.0) g/dL RDW (12.1-15.1) % Plt Count (130-400) 10^3/c mm MPV (7.4-10.4) fL Neut % (Auto) % Lymph % (Auto) % [place] % (Auto) % Eos % (Auto) % Baso % (Auto) % Neut # (Auto) (1.8-7.7) 10^3/u L Lymph # (Auto) (0.8-4.8) 10^3/u L [place] # (Auto) (0.2-0.9) 10^3/u L Eos # (Auto) (0.0-0.8) 10^3/u L Baso # (Auto) (0.0-0.1) 10^3/u L Nucleated RBC % (a uto) % Nucleated RBCs # /100WBC PT (12.1-14.9) SECO NDS INR (0.8-1.2) APTT (23.9-36.7) SECO NDS Fibrinogen (174-498) mg/dL D-Dimer (0-0.59) ug/mIFE U Specimen Type Arterial Sample Site Radial, left ABG pH 7.37 (7.35-7.45) ABG pCO2 42.4 (35-45) mmHg ABG pO2 84.8 (80.0-100.0) mmH g ABG HCO3 24.6 (22-26) mmol/L ABG Base Excess -0.8 (-2.0-2.0) mmol/ L Ellis Test Pos Hematocrit 42.3 (37-47) % O2 Delivery Device Room air Cloth Printer Helper ID Harkr Sodium (136-145) mmol/L Potassium (3.5-5.1) mmol/L Chloride (98-107) mmol/L Carbon Dioxide (22-29) mmol/L Anion Gap (5-19) BUN (6-20) mg/dL Creatinine (0.5-0.9) mg/dL GFR Calculation (90-130) mL/min Glucose (65-115) mg/dL Calculated Osmolal ity (285-295) mOsm/k g Lactic Acid (0.5-2.2) mmol/L Calcium (8.5-10.5) mg/dL Magnesium (1.7-2.3) mg/dL Total Bilirubin (0.15-1.2) mg/dL AST (0-32) U/L ALT (0-33) U/L Alkaline Phosphata se (35-105) IU/L Lactate Dehydrogen ase (135-214) U/L Troponin T Gen 5 n g/L (0-10) ng/L C-Reactive Protein (0.0-4.9) mg/L NT-Pro-B Natriuret Pep (0-125) pg/mL Total Protein (6.6-8.7) g/dL Albumin (3.5-5.2) g/dL Globulin (1.3-4.6) g/dL Procalcitonin (0-0.5) ng/mL Influenza Type A A g Negative (Negative) Influenza Type B A g Negative (Negative) SARS-CoV-2 Ag (Rap id) (Negative) Imaging Data^: CXR: Attestation: I personally reviewed and interpreted this imaging study as follows: My impression: No acute cardiopulmonary findings. EKG Data^: EKG 1: Attestation: I personally reviewed and interpreted this EKG as follows: EKG Interpretation Date: 06/15/20 EKG interpretation time: 19:18 Interpretation: Normal sinus rhythm at 80 beats a minute, right bundle branch block, normal intervals, nonspecific ST and T wave changes. Discharge Plan Discharge Patient Disposition: Home Clinical Impression: Bronchitis Condition: Stable Prescriptions: New prednisone 10 mg tablet 20 mg PO TID 5 Days Qty: 30 RF: 0 Zithromax Z-Brian 250 mg tablet See Rx Instructions .ROUTE .COMPLEX Qty: 6 RF: 0 No Action Vitamin C 500 mg Tablet 250 mg PO DAILY RF: 0 Theraflu Multi-Symptom Cold 10-20-500 mg Powder In Packet 1 ea PO PRN PRN (Reason: COLD/FLY SYMPTOMS) RF: 0 Emergen-C 500 mg Tablet,Chewable 1 tab PO DAILY RF: 0 aspirin 325 mg Tablet 325 mg PO DAILY RF: 0 Discharge Orders: Discharge Order (Routine); Ordered 06/15/20 Ordered By: Mayte Gant Referrals: Jolene Espinoza DPM [Primary Care Provider] - 1-3 days Discharge Diet: Advance as tolerated Discharge Activity: Increase activity as tolerated Patient Instructions: Acute Bronchitis (ED) Activity Restrictions/Additional Instructions: Please return to the ER immediately for any of the signs or symptoms listed on your discharge instruction sheets, worsening/changing of your symptoms, you are not getting better as quickly as expected, or for ANY other cause or concerns. Discharge Date/Time: 06/15/20 21:53 Coding Level of Care Code ED Supervisor Cytogenetic Laboratory for Chg Fwd Exam Comprehensive
[2020-06-15] MEDS: sodium chloride 0.9% 1,000 ML 999 ML IV (19:45)
[2020-06-15] MEDS: sodium chloride 0.9% 1,000 ML 100 ML IV (19:45)
[2020-06-15 20:29] LABS: ABG PCO2 42.4 mmHg (35-45); ABG PH Result 7.37 (7.35-7.45); Arterial Blood Gas Hematocrit 42.3 % (37-47); Base Excess ABG -0.8 mmol/L (-2.0-2.0); Blood Gas Allen Test Pos; Blood Gas Sample Type Arterial; HCO3 ABG 24.6 mmol/L (22-26); PO2 ABG 84.8 mmHg (80.0-100.0)
[2020-06-15 20:30] LABS: Basophils # 0.1 10^3/uL (0.0-0.1); Basophils % 1.2 %; Eosinophils # 0.1 10^3/uL (0.0-0.8); Eosinophils % 1.2 %; Hematocrit 47.9 % (37.0-47.0); Hemoglobin 14.7 g/dL (11.5-15.3); Lymphocytes # 3.2 10^3/uL (0.8-4.8); Lymphocytes % 43.2 %; Mean Corpuscular HGB Conc 30.7 g/dL (30.0-36.0); Mean Corpuscular Hemoglobin 25.7 pg (28.0-34.0); Mean Corpuscular Volume 83.9 fL (81-99); Mean Platelet Volume 10.9 fL (7.4-10.4); Monocytes # 0.4 10^3/uL (0.2-0.9); Neutrophils # 3.55 10^3/uL (1.8-7.7); Neutrophils % 48.1 %; Nucleated Red Blood Cells % 0 %; Platelet Count 273 10^3/cmm (130-400); Red Blood Count 5.71 10^6/uL (4.1-5.3); Red Cell Distribution Width 13.3 % (12.1-15.1); White Blood Count 7.4 10^3/uL (4.0-10.0)
[2020-06-15 20:30] LABS: Blood Gas Operator Identificat HARKR; Blood Gas Sample Site Radial, left; Oxygen Device ROOM AIR
[2020-06-15 20:46] LABS: INR 0.84 (0.8-1.2)
[2020-06-15 20:47] LABS: Fibrinogen 347 mg/dL (174-498); Partial Thromboplastin Time 29.6 SECONDS (23.9-36.7)
[2020-06-15 20:48] LABS: Lactic Sepsis W/Reflex 1.9 mmol/L (0.5-2.2)
[2020-06-15 20:49] LABS: D Dimer 0.46 ug/mIFEU (0-0.59)
[2020-06-15 20:53] LABS: Troponin T (5th) Once 6 ng/L (0-10)
[2020-06-15 21:02] LABS: Alanine Aminotransferase 25 U/L (0-33); Albumin Level 4.7 g/dL (3.5-5.2); Alkaline Phosphatase 67 IU/L (35-105); Aspartate Amino Transferase 18 U/L (0-32); Blood Urea Nitrogen 13 mg/dL (6-20); Calcium 9.8 mg/dL (8.5-10.5); Carbon Dioxide 23 mmol/L (22-29); Chloride 102 mmol/L (98-107); Globulin 2.4 g/dL (1.3-4.6); Glomerular Filtration Rate 66.5 mL/min (90-130); Glucose 148 mg/dL (65-115); Lactate Dehydrogenase 157 U/L (135-214); Magnesium 2.1 mg/dL (1.7-2.3); NT Pro B Type Natriuretic Pept 5 pg/mL (0-125); Osmolality Calculated 287 mOsm/kg (285-295); Sodium 137 mmol/L (136-145); Total Bilirubin 0.2 mg/dL (0.15-1.2); Total Protein 7.1 g/dL (6.6-8.7)
[2020-06-15 21:12] LABS: Influenza A by IFA Negative (Negative); Influenza B by IFA Negative (Negative)
[2020-06-15 21:13] LABS: SARS Covid-2 Antigen Negative (Negative)
[2020-06-15 21:44] VITALS: BP 121/71; PULSE 88; RESP 18; TEMP 36.8; O2SAT 98
[2020-06-15] MEDS: azithromycin 250 mg Tablet 500 MG PO (21:53)
[2020-06-15] MEDS: predniSONE 20 mg Tablet 60 MG PO (21:53)
[2020-06-15 22:47] LABS: Procalcitonin 0.03 ng/mL (0-0.5)
[2020-06-15 22:59] LABS: C Reactive Protein 1.6 mg/L (0.0-4.9)
== END 2020-06-15 21:53 | disposition home or self-care (01) ==
PROVIDERS: Emergency Provider Emergency Medicine; PCP Nurse Practitioner
DX: J40 Bronchitis, not specified as acute or chronic (principal); Z79.82 Long term (current) use of aspirin; F17.210 Nicotine dependence, cigarettes, uncomplicated
CPT/HCPCS: 12345; 36600; 71045; 80053; 82803; 83605; 83615; 83735; 83880; 84145; 84484; 85025; 85378; 85384; 85610; 85730; 86140; 87040; 87426; 87804; 93005; 96360; 96361; 99283; 99284; J7030; J7512; Q0144

== ENCOUNTER 2020-11-21 11:19 | Emergency (ER) | payer SELFPAY ==
[2020-11-21] VITALS (8 sets, daily range): BP systolic 120–131; BP diastolic 83–90; PULSE 88–108; RESP 18–22; TEMP 36.6; O2SAT 96–98; BMI 35.6
--- NOTE | 2020-11-21 11:43 | XRR_ITS ---
PROCEDURE INFORMATION: Exam: XR Chest Exam date and time: 11/21/2020 12:56 PM Age: 49 years old Clinical indication: Cough; Additional info: Covid symptoms TECHNIQUE: Imaging protocol: XR of the chest Views: 1 view. COMPARISON: CR XR chest 1V portable [id number] 06/15/2020 8:27 PM FINDINGS: Lungs: Unremarkable. No consolidation. Pleural spaces: Unremarkable. No pleural effusion. No pneumothorax. Heart/Mediastinum: Unremarkable. No cardiomegaly. Bones/joints: Unremarkable. XR/XR chest 1V portable [id number] IMPRESSION: No acute findings.
--- NOTE | 2020-11-21 12:06 | ECG_ITS ---
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 Measurements Intervals [place] Rate: 91 P: 52 MA: 153 QRS: -1 QRSD: 94 T: 56 QT: 341 QTc: 421 Interpretive Statements SINUS RHYTHM POSSIBLE LEFT ATRIAL ENLARGEMENT [-0.1mV P WAVE IN V1/V2] LOW QRS VOLTAGE IN PRECORDIAL LEADS [QRS DEFLECTION < 1.0 mV IN CHEST LEADS] INCOMPLETE RIGHT BUNDLE BRANCH BLOCK [90+ ms QRS DURATION, TERMINAL R IN V1/V2, 40+ ms S IN I/aVL/V4/V5/V6] ANTERIOR MYOCARDIAL INFARCTION , PROBABLY OLD [40+ ms Q WAVE AND/OR ST/T ABNORMALITY IN V3/V4] Compared to ECG 06/15/2020 19:18:56 Myocardial infarct finding now present Electronically Signed On 11-21-2020 23:51:56 DIRECTOR OF PUBLIC RELATIONS by Yoana Jaramillo M.D. [email or web address]
[2020-11-21] MEDS: benzonatate 100 mg Capsule PO (12:28)
[2020-11-21] MEDS: sodium chloride 0.9% 1,000 ML 999 ML IV ×3 (12:29→15:11)
[2020-11-21] MEDS: albuterol 8 gm MDI 2 PUFF INHALATION (12:31)
--- NOTE | 2020-11-21 13:05 | W.ED.COVID ---
HPI - COVID General: Chief Complaint: COVID symptoms Stated Complaint: COVID SYMPTOMS Time Seen by Provider: 11/21/20 11:57 Triage information: No fever, cough or shortness of breath. No known COVID + exposure last 14 days History of Present Illness: HPI Narrative: The patient is a 49-year-old female who comes to the ED complaining of 4 days of Covid-like symptoms. She says she has loss of smell and taste, low-grade fevers at home, muscle and joint aches, fatigue, shortness of breath, abdominal cramping. She says the coughing is gotten so severe in the past day or 2 is making her belly hurt when she coughs and giving her a severe headache. She says she has 2 sick children and does not know if they have Covid or not but are unmasked at school. Prior covid testing: no COVID 19 common symptoms: positive fever(s), chills, cough, non-productive cough, dyspnea, fatigue, body aches, headache(s) and loss of sense of smell and/or taste; negative throat pain, nasal congestion or diarrhea COVID 19 other sytmptoms: negative chest pain Onset (ago): day(s) (4) Severity: mild Pertinent comorbid conditions: tobacco use/smoking Treatment prior to arrival: none COVID Results: SARS-CoV-2 Antigen (Rapid) Negative (Negative) 11/21/20 12:30 11/21/20 Review of Systems General: Reports: 10 or more systems reviewed and unremarkable except in HPI and below Const: Reports: fever(s), chills, body aches and fatigue Eyes: Denies: change in vision, blurry vision or eye redness ENMT: Denies: throat pain, swelling of lips/tongue, ear or mastoid pain or nasal congestion Card: Denies: chest pain, palpitations, irregular heart rhythm, edema, dyspnea on exertion or orthopnea Resp: Reports: dyspnea and non-productive cough GI: Denies: abdominal pain, diarrhea or GI cramping : Denies: flank pain, difficulty voiding, urinary frequency or urinary urgency Musc: Denies: neck pain, back pain, extremity pain, joint pain, joint redness, limited range of motion or muscle weakness Skin/Breast: Denies: rash, pruritus, erythema, skin pain or skin tenderness Neuro: Reports: headache(s) Psych: Denies: anxiety or depression Endo: Denies: polyuria All/Imm: Denies: urticaria, throat swelling or tongue swelling PFSH ED PFSH: Medical History DVT (deep venous thrombosis) Uterine fibroid Social History Smoking and tobacco status: current every day smoker Female Reproductive History: Date of last menstrual period: 11/14/20 Physical Exam Const: COMMON NORMALS: no acute distress, average body habitus, patient oriented x3, no limitations, healthy appearing, alert and well nourished GENERAL APPEARANCE: cooperative, comfortable, well kempt and well developed ORIENTATION/CONSCIOUSNESS: Yes awake, Yes oriented to person, Yes oriented to place and Yes oriented to time HENMT: COMMON NORMALS: normocephalic, external ears normal and Normal external nose present HEAD & SCALP: normal to inspection and normocephalic NOSE: Normal external nose present EXTERNAL EAR: Yes external ears normal MOUTH: Normal oral and palatal mucosa present THROAT: posterior oropharynx normal Eye: COMMON NORMALS: Equal, round and reactive pupils present and EOMs intact bilaterally GENERAL EYE: appearance normal, both eyes and all related structures PUPIL: Yes Equal, round and reactive pupils present Neck/C-Spine: COMMON NORMALS: full ROM, no lymphadenopathy, no meningeal signs and no JVD GENERAL: Yes normal visual inspection Lymph: LYMPHATIC: no lymphadenopathy noted Chest: COMMONS NORMALS: normal inspection of the chest and normal palpation of entire chest wall Resp: COMMON NORMALS: normal respiratory effort, No retractions, No use of accessory muscles, clear to auscultation bilaterally and percussion normal EFFORT & INSPECTION: Yes able to speak in complete sentences AUSCULTATION: clear to auscultation bilaterally PERCUSSION: percussion normal Cardio: COMMON NORMALS: no JVD, regular rate, regular rhythm, S1 normal heart sound present, S2 normal heart sound present and Peripheral pulses 2+ throughout RATE: regular rate RHYTHM: regular rhythm HEART SOUNDS: S1 normal heart sound present and S2 normal heart sound present PERIPHERAL PULSES: Peripheral pulses 2+ throughout GI: COMMON NORMALS: Normal to inspection, nondistended, normoactive bowel sounds present, Soft to palpation, non-tender and no masses INSPECTION: Yes normal to inspection PALPATION: Yes Soft to palpation : COMMON NORMALS: Yes no CVA tenderness BLADDER/KIDNEY EXAM: Yes no CVA tenderness Back/Pelvis: COMMON NORMALS: no CVA tenderness, thoracic and lumbar spine normal to inspection, no thoracic nor lumbar tenderness and thoraco-lumbar ROM normal Extremity: COMMON NORMALS: normal to inspection, full ROM, capillary refill normal, no joint enlargement and no pedal edema GENERAL: Yes normal exam except as noted Neuro: COMMON NORMALS: patient oriented x3, CN's II-XII intact bilaterally, moves all extremities, no focal motor deficits, no sensory deficits noted and gait normal SENSORIUM/ORIENTATION: Yes alert, Yes oriented to person, Yes oriented to place and Yes oriented to time MENINGEAL SIGNS: Yes no meningeal signs Psych: COMMON NORMALS: mental status grossly normal, Normal thought process present, cooperative, normal affect and speech normal APPEARANCE: Yes well kempt ATTITUDE: Yes calm SPEECH: Yes normal speech THOUGHT PROCESS: Normal thought process present Skin: COMMON NORMALS: no rashes or lesions noted GENERAL SKIN EXAM: no rashes or lesions noted Course Vital Signs: Vital signs: Vital Signs Temperature 97.9 F 11/21/20 11:47 Pulse Rate 88 11/21/20 14:17 Respiratory Rate 22 H 11/21/20 16:12 Blood Pressure 128/90 11/21/20 14:17 Pulse Oximetry 98 11/21/20 14:17 MDM - COVID MDM Narrative: Medical decision making narrative: Patient swabs negative for Covid and flu. Likely an upper respiratory infection. Discussed she should still distance herself from others and treat herself as if she has Covid. She is discharged with azithromycin, prednisone, Tessalon Perles. Return to the ER with worsening symptoms. Lab Data: Labs: Lab Results 11/21/20 11/21/20 11/21/20 Range/Units 12:27 12:30 12:30 WBC (4.0-10.0) 10^3/ uL RBC (4.1-5.3) 10^6/u L Hgb (11.5-15.3) g/dL Hct (37.0-47.0) % MCV (81-99) fL MCH (28.0-34.0) pg MCHC (30.0-36.0) g/dL RDW (12.1-15.1) % Plt Count (130-400) 10^3/c mm MPV (7.4-10.4) fL Neut % (Auto) % Lymph % (Auto) % Weston % (Auto) % Eos % (Auto) % Baso % (Auto) % Neut # (Auto) (1.8-7.7) 10^3/u L Lymph # (Auto) (0.8-4.8) 10^3/u L Weston # (Auto) (0.2-0.9) 10^3/u L Eos # (Auto) (0.0-0.8) 10^3/u L Baso # (Auto) (0.0-0.1) 10^3/u L Nucleated RBC % (a uto) % Nucleated RBCs # /100WBC Sodium (136-145) mmol/L Potassium (3.5-5.1) mmol/L Chloride (98-107) mmol/L Carbon Dioxide (22-29) mmol/L Anion Gap (5-19) BUN (6-20) mg/dL Creatinine (0.5-0.9) mg/dL GFR Calculation (90-130) mL/min Glucose (65-115) mg/dL Calculated Osmolal ity (285-295) mOsm/k g Lactic Acid (0.5-2.2) mmol/L Calcium (8.5-10.5) mg/dL Total Bilirubin (0.15-1.2) mg/dL AST (0-32) U/L ALT (0-33) U/L Alkaline Phosphata se (35-105) IU/L Troponin T Gen 5 n g/L (0-10) ng/L C-Reactive Protein (0.0-4.9) mg/L Total Protein (6.6-8.7) g/dL Albumin (3.5-5.2) g/dL Globulin (1.3-4.6) g/dL Urine Color Yellow (Yellow) Urine Appearance Clear (CLEAR) Urine pH 5 (5-7) Ur Specific Gravit y 1.030 (1.005-1.030) Urine Protein Neg (Negative) Urine Glucose (UA) Norm (Normal) Urine Ketones Negative (Negative) Urine Blood Neg (Negative) Urine Nitrate Negative (Negative) Urine Bilirubin Neg (Negative) Urine Urobilinogen 1 H (Negative) mg/dL Ur Leukocyte Ani ase Negative (Negative) Influenza Type A A g Negative (Negative) Influenza Type B A g Negative (Negative) SARS-CoV-2 Ag (Rap id) Negative (Negative) 11/21/20 11/21/20 11/21/20 Range/Units 12:45 12:45 12:45 WBC 9.3 (4.0-10.0) 10^3/ uL RBC 5.45 H (4.1-5.3) 10^6/u L Hgb 14.5 (11.5-15.3) g/dL Hct 46.1 (37.0-47.0) % MCV 84.6 (81-99) fL MCH 26.6 L (28.0-34.0) pg MCHC 31.5 (30.0-36.0) g/dL RDW 13.4 (12.1-15.1) % Plt Count 221 (130-400) 10^3/c mm MPV 11.5 H (7.4-10.4) fL Neut % (Auto) 68.7 % Lymph % (Auto) 19.4 % Weston % (Auto) 8.9 % Eos % (Auto) 1.9 % Baso % (Auto) 0.9 % Neut # (Auto) 6.41 (1.8-7.7) 10^3/u L Lymph # (Auto) 1.8 (0.8-4.8) 10^3/u L Weston # (Auto) 0.8 (0.2-0.9) 10^3/u L Eos # (Auto) 0.2 (0.0-0.8) 10^3/u L Baso # (Auto) 0.1 (0.0-0.1) 10^3/u L Nucleated RBC % (a uto) 0 % Nucleated RBCs # 0.0 /100WBC Sodium 134 L (136-145) mmol/L Potassium 3.6 (3.5-5.1) mmol/L Chloride 101 (98-107) mmol/L Carbon Dioxide 22 (22-29) mmol/L Anion Gap 14.6 (5-19) BUN 8 (6-20) mg/dL Creatinine 0.8 (0.5-0.9) mg/dL GFR Calculation 76.2 L (90-130) mL/min Glucose 94 (65-115) mg/dL Calculated Osmolal ity 276 L (285-295) mOsm/k g Lactic Acid 0.9 (0.5-2.2) mmol/L Calcium 8.7 (8.5-10.5) mg/dL Total Bilirubin 0.2 (0.15-1.2) mg/dL AST 22 (0-32) U/L ALT 26 (0-33) U/L Alkaline Phosphata se 67 (35-105) IU/L Troponin T Gen 5 n g/L (0-10) ng/L C-Reactive Protein 3.3 (0.0-4.9) mg/L Total Protein 6.7 (6.6-8.7) g/dL Albumin 4.0 (3.5-5.2) g/dL Globulin 2.7 (1.3-4.6) g/dL Urine Color (Yellow) Urine Appearance (CLEAR) Urine pH (5-7) Ur Specific Gravit y (1.005-1.030) Urine Protein (Negative) Urine Glucose (UA) (Normal) Urine Ketones (Negative) Urine Blood (Negative) Urine Nitrate (Negative) Urine Bilirubin (Negative) Urine Urobilinogen (Negative) mg/dL Ur Leukocyte Ani ase (Negative) Influenza Type A A g (Negative) Influenza Type B A g (Negative) SARS-CoV-2 Ag (Rap id) (Negative) 11/21/20 Range/Units 12:45 WBC (4.0-10.0) 10^3/ uL RBC (4.1-5.3) 10^6/u L Hgb (11.5-15.3) g/dL Hct (37.0-47.0) % MCV (81-99) fL MCH (28.0-34.0) pg MCHC (30.0-36.0) g/dL RDW (12.1-15.1) % Plt Count (130-400) 10^3/c mm MPV (7.4-10.4) fL Neut % (Auto) % Lymph % (Auto) % Weston % (Auto) % Eos % (Auto) % Baso % (Auto) % Neut # (Auto) (1.8-7.7) 10^3/u L Lymph # (Auto) (0.8-4.8) 10^3/u L Weston # (Auto) (0.2-0.9) 10^3/u L Eos # (Auto) (0.0-0.8) 10^3/u L Baso # (Auto) (0.0-0.1) 10^3/u L Nucleated RBC % (a uto) % Nucleated RBCs # /100WBC Sodium (136-145) mmol/L Potassium (3.5-5.1) mmol/L Chloride (98-107) mmol/L Carbon Dioxide (22-29) mmol/L Anion Gap (5-19) BUN (6-20) mg/dL Creatinine (0.5-0.9) mg/dL GFR Calculation (90-130) mL/min Glucose (65-115) mg/dL Calculated Osmolal ity (285-295) mOsm/k g Lactic Acid (0.5-2.2) mmol/L Calcium (8.5-10.5) mg/dL Total Bilirubin (0.15-1.2) mg/dL AST (0-32) U/L ALT (0-33) U/L Alkaline Phosphata se (35-105) IU/L Troponin T Gen 5 n g/L 6 (0-10) ng/L C-Reactive Protein (0.0-4.9) mg/L Total Protein (6.6-8.7) g/dL Albumin (3.5-5.2) g/dL Globulin (1.3-4.6) g/dL Urine Color (Yellow) Urine Appearance (CLEAR) Urine pH (5-7) Ur Specific Gravit y (1.005-1.030) Urine Protein (Negative) Urine Glucose (UA) (Normal) Urine Ketones (Negative) Urine Blood (Negative) Urine Nitrate (Negative) Urine Bilirubin (Negative) Urine Urobilinogen (Negative) mg/dL Ur Leukocyte Ani ase (Negative) Influenza Type A A g (Negative) Influenza Type B A g (Negative) SARS-CoV-2 Ag (Rap id) (Negative) COVID Results: SARS-CoV-2 Antigen (Rapid) Negative (Negative) 11/21/20 12:30 11/21/20 Discharge Plan Discharge Patient Disposition: Home Clinical Impression: Acute upper respiratory infection Condition: Stable Prescriptions: New azithromycin 250 mg tablet 250 mg PO DAILY 5 Days Qty: 5 RF: 0 prednisone 20 mg tablet 40 mg PO BID 5 Days Qty: 20 RF: 0 Tessalon Perles 100 mg capsule 100 mg PO Q6H PRN (Reason: cough) Qty: 20 RF: 0 No Action Robitussin See Rx Instructions .ROUTE .COMPLEX RF: 0 aspirin 325 mg Tablet 325 mg PO DAILY RF: 0 Discharge Orders: Discharge ED (Routine); Ordered 11/21/20 Ordered By: Blake Gamble Discharge Diet: Advance as tolerated Discharge Activity: Resume usual activity Patient Instructions: Upper Respiratory Infection (ED), Opioid Safety Activity Restrictions/Additional Instructions: You have an upper respiratory infection. You have swabbed negative for Covid and influenza. Please take the antibiotics, steroids, and Tessalon Perles to help with your cough. Return to the ER with worsening symptoms otherwise follow-up with your primary care physician in a few days to monitor improvement. Coding Level of Care Code ED Hog Counter for Aria Fwann Exam Comprehensive
[2020-11-21 13:28] LABS: Basophils # 0.1 10^3/uL (0.0-0.1); Basophils % 0.9 %; Eosinophils # 0.2 10^3/uL (0.0-0.8); Eosinophils % 1.9 %; Hematocrit 46.1 % (37.0-47.0); Hemoglobin 14.5 g/dL (11.5-15.3); Lymphocytes # 1.8 10^3/uL (0.8-4.8); Lymphocytes % 19.4 %; Mean Corpuscular HGB Conc 31.5 g/dL (30.0-36.0); Mean Corpuscular Hemoglobin 26.6 pg (28.0-34.0); Mean Corpuscular Volume 84.6 fL (81-99); Mean Platelet Volume 11.5 fL (7.4-10.4); Monocytes # 0.8 10^3/uL (0.2-0.9); Monocytes % 8.9 %; Neutrophils # 6.41 10^3/uL (1.8-7.7); Neutrophils % 68.7 %; Nucleated Red Blood Cells % 0 %; Platelet Count 221 10^3/cmm (130-400); Red Blood Count 5.45 10^6/uL (4.1-5.3); Red Cell Distribution Width 13.4 % (12.1-15.1); White Blood Count 9.3 10^3/uL (4.0-10.0)
[2020-11-21 13:29] LABS: Lactic Sepsis W/Reflex 0.9 mmol/L (0.5-2.2)
[2020-11-21 13:29] LABS: Add Urine Microscopic? NO
[2020-11-21 13:38] LABS: Bilirubin Urine Neg (Negative); Blood Urine Neg (Negative); Glucose Urine UA Norm (Normal); Ketones Urine Negative (Negative); Leukocyte Esterase Urine Negative (Negative); Nitrate Urine Negative (Negative); Protein Urine Neg (Negative); Urine Appearance Clear (CLEAR); Urine Color Yellow (Yellow); Urobilinogen Urine 1 mg/dL (Negative); pH Urine 5 (5-7)
[2020-11-21 13:39] LABS: Alanine Aminotransferase 26 U/L (0-33); Alkaline Phosphatase 67 IU/L (35-105); Blood Urea Nitrogen 8 mg/dL (6-20); C Reactive Protein 3.3 mg/L (0.0-4.9); Calcium 8.7 mg/dL (8.5-10.5); Carbon Dioxide 22 mmol/L (22-29); Chloride 101 mmol/L (98-107); Globulin 2.7 g/dL (1.3-4.6); Glomerular Filtration Rate 76.2 mL/min (90-130); Glucose 94 mg/dL (65-115); Osmolality Calculated 276 mOsm/kg (285-295); Sodium 134 mmol/L (136-145); Total Bilirubin 0.2 mg/dL (0.15-1.2); Total Protein 6.7 g/dL (6.6-8.7)
[2020-11-21 13:40] LABS: Troponin T (5th) Once 6 ng/L (0-10)
[2020-11-21 13:45] LABS: Anion Gap 14.6 (5-19); Aspartate Amino Transferase 22 U/L (0-32); Potassium 3.6 mmol/L (3.5-5.1)
[2020-11-21 13:51] LABS: Influenza A by IFA Negative (Negative); Influenza B by IFA Negative (Negative); SARS Covid-2 Antigen Negative (Negative)
[2020-11-21] MEDS: azithromycin 250 mg Tablet 500 MG PO (15:11)
[2020-11-21] MEDS: predniSONE 20 mg Tablet 40 MG PO (15:11)
== END 2020-11-21 16:13 | disposition home or self-care (01) ==
PROVIDERS: Emergency Provider Family Medicine
DX: J06.9 Acute upper respiratory infection, unspecified (principal); Z79.82 Long term (current) use of aspirin; F17.210 Nicotine dependence, cigarettes, uncomplicated
CPT/HCPCS: 71045; 80053; 81003; 83605; 84484; 85025; 86140; 87426; 87804; 93005; 94640; 96360; 96361; 99284; J3535; J7030; J7512; Q0144

== ENCOUNTER → 2021-04-02 11:36 | Outpatient (BNVA) | payer OTHER, SELFPAY | PROVIDERS: Visit Provider Emergency Medicine | DX: Z20.822 Contact with and (suspected) exposure to COVID-19 (principal) | CPT/HCPCS: 87635 ==

== ENCOUNTER 2021-10-20 13:57 | Emergency (ER) | payer SELFPAY ==
[2021-10-20 14:13] VITALS: BP 128/89; PULSE 89; RESP 18; TEMP 36.4; O2SAT 98; BMI 34.3
--- NOTE | 2021-10-20 14:19 | ECG_ITS ---
[facility] Test Date: 2021-10-20 Pat Name: Marcella Whitley Department: Room: Gender: Female Assessment Specialist: : 1970 Requested By: Kevin Obrien Order Number: [id number] Nicole MD: Nancy Crowder M.D. Measurements Intervals [place] Rate: 75 P: 60 OR: 165 QRS: -16 QRSD: 101 T: 63 QT: 367 QTc: 410 Interpretive Statements SINUS RHYTHM POSSIBLE LEFT ATRIAL ENLARGEMENT [-0.1mV P-WAVE IN V1/V2] LOW QRS VOLTAGE IN PRECORDIAL LEADS [QRS DEFLECTION < 1.0 mV IN CHEST LEADS] INCOMPLETE RIGHT BUNDLE BRANCH BLOCK [90+ ms QRS DURATION, TERMINAL R IN V1/V2, 40+ ms S IN I/aVL/V4/V5/V6] POSSIBLE ANTERIOR MYOCARDIAL INFARCTION , OF INDETERMINATE AGE [30 ms Q WAVE IN V3/V4, OR R < 0.2 mV IN V4] POSSIBLE INFERIOR MYOCARDIAL INFARCTION , OF INDETERMINATE AGE [30 ms Q WAVE IN II/aVF] Compared to ECG 11/21/2020 12:25:00 No significant changes Electronically Signed On 10-21-2021 17:01:04 TRACER POWDER BLENDER by Nancy Crowder M.D. [id number]
--- NOTE | 2021-10-20 14:19 | XRR_ITS ---
PROCEDURE INFORMATION: Exam: XR Chest Exam date and time: 10/20/2021 2:19 PM Age: 50 years old Clinical indication: Cough and dyspnea; Additional info: Dyspnea/cough TECHNIQUE: Imaging protocol: XR of the chest. Views: 1 view. COMPARISON: CR XR chest 1V portable [id number] 11/21/2020 12:38 PM FINDINGS: Lungs: Unremarkable. No consolidation. Pleural spaces: Unremarkable. No pleural effusion. No pneumothorax. Heart/Mediastinum: Unremarkable. No cardiomegaly. Bones/joints: Unremarkable. XR/XR chest 1V portable [id number] IMPRESSION: No acute findings.
--- NOTE | 2021-10-20 15:20 | W.ED.CHESTPA ---
HPI - Chest Pain General: Chief Complaint: Chest Pain Stated Complaint: numbness in face, dizzy Time Seen by Provider: 10/20/21 15:05 Source: patient Mode of arrival: ambulatory Limitations: no limitations History of Present Illness: 50-year-old female who presents emergency room with complaint of chest discomfort. She states she last had an episode this morning it occurred while she was carrying some laundry around she sat down and lasted for about an hour and resolves. She has had various other symptoms. Lightheadedness right-sided facial numbness or tightness. However states that this time she feels fine. Other times she feels weird she does not describe it. She is quite verbose concerning her lack of specific symptoms. She not having any shortness of breath at this time no chest pain no lightheadedness dizziness no focal neurologic deficits she denies any vomiting or diarrhea. She is a history of hypertension but is not taking any medication at this time. 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 MD complaint: chest pain and other Onset (ago): week(s) Timing of current episode: episodic Prior episodes: Yes Onset: during rest Pain location: substernal Pain radiation: none Severity: mild Quality: aching and heaviness Relieving factors: nothing Exacerbating factors: nothing Associated symptoms: Deny abdominal pain, diaphoresis, dyspnea, fever(s), leg edema, nausea, palpitations, sense of impending doom, syncope or vomiting Treatment prior to arrival: none Review of Systems Const: Denies: fever(s) or diaphoresis ENMT: Denies: throat pain, ear or mastoid pain, nasal discharge or nasal congestion Card: Denies: palpitations or syncope Resp: Denies: dyspnea GI: Denies: abdominal pain, nausea or vomiting : Denies: flank pain, difficulty voiding, dysuria, urinary frequency or urinary urgency Skin/Breast: Denies: rash or pruritus PFSH ED PFSH: Medical History DVT (deep venous thrombosis) Uterine fibroid Social History Smoking and tobacco status: current every day smoker Female Reproductive History: Date of last menstrual period: 11/14/20 Physical Exam Const: COMMON NORMALS: no acute distress GENERAL APPEARANCE: cooperative and comfortable ORIENTATION/CONSCIOUSNESS: Yes awake, Yes oriented to person, Yes oriented to place and Yes oriented to time HENMT: COMMON NORMALS: normocephalic, atraumatic and hearing grossly normal bilaterally HEAD & SCALP: normocephalic and atraumatic Neck/C-Spine: COMMON NORMALS: no JVD Resp: COMMON NORMALS: normal respiratory effort, No retractions, No use of accessory muscles and clear to auscultation bilaterally AUSCULTATION: clear to auscultation bilaterally Cardio: COMMON NORMALS: no JVD, regular rate, regular rhythm and No murmurs present (Cardio) RATE: regular rate RHYTHM: regular rhythm GI: COMMON NORMALS: Soft to palpation and No hepatosplenomegaly present AUSCULTATION: Yes normoactive bowel sounds PALPATION: Yes Soft to palpation, No Tenderness to palpation present (GI), No Guarding due to palpation present (GI) and Yes No hepatosplenomegaly present Extremity: COMMON NORMALS: normal to inspection, capillary refill normal, no clubbing, cyanosis or edema, no calf tenderness and no pedal edema Neuro: SENSORIUM/ORIENTATION: Yes oriented to person, Yes oriented to place and Yes oriented to time Skin: COMMON NORMALS: no rashes or lesions noted GENERAL SKIN EXAM: no rashes or lesions noted Course Vital Signs: Vital signs: Vital Signs Temperature 97.6 F 10/20/21 14:13 Pulse Rate 101 H 10/20/21 18:58 Respiratory Rate 17 10/20/21 18:58 Blood Pressure 169/134 10/20/21 18:58 Pulse Oximetry 90 10/20/21 18:58 MDM - Chest Pain Medical Decision Making EKG and cardiac enzymes negative patient has had this for over a week now. Her heart score is 2. Organ to go and discharge her home have her follow-up with outpatient stress test. Started on aspirin daily. Has any recurrence or worsening symptoms return. Medical Records I reviewed the patient's medical records. Lab Data I reviewed the patient's lab results. : 10/20/21 16:13 10/20/21 16:13 Radiology Impressions Chest X-Ray 10/20/21 14:19 IMPRESSION: No acute findings. Laboratory Results WBC 8.0 10^3/uL (4.0-10.0) 10/20/21 16:13 RBC 6.25 10^6/uL (4.1-5.3) H 10/20/21 16:13 Hgb 16.8 g/dL (11.5-15.3) H 10/20/21 16:13 Hct 53.1 % (37.0-47.0) H 10/20/21 16:13 MCV 85.0 fl (81-99) 10/20/21 16:13 MCH 26.9 pg (28.0-34.0) L 10/20/21 16:13 MCHC 31.6 g/dL (30.0-36.0) 10/20/21 16:13 RDW 13.2 % (12.1-15.1) 10/20/21 16:13 Plt Count 166 10^3/cmm (130-400) 10/20/21 16:13 MPV 11.0 fL (7.4-10.4) H 10/20/21 16:13 Neut % (Auto) 53.4 % 10/20/21 16:13 Lymph % (Auto) 37.4 % 10/20/21 16:13 [place] % (Auto) 6.9 % 10/20/21 16:13 Eos % (Auto) 1.1 % 10/20/21 16:13 Baso % (Auto) 0.9 % 10/20/21 16:13 Neut # (Auto) 4.26 10^3/uL (1.8-7.7) 10/20/21 16:13 Lymph # (Auto) 3.0 10^3/uL (0.8-4.8) 10/20/21 16:13 [place] # (Auto) 0.6 10^3/uL (0.2-0.9) 10/20/21 16:13 Eos # (Auto) 0.1 10^3/uL (0.0-0.8) 10/20/21 16:13 Baso # (Auto) 0.1 10^3/uL (0.0-0.1) 10/20/21 16:13 Nucleated RBC % (auto) 0 % 10/20/21 16:13 Nucleated RBCs # 0.0 /100WBC 10/20/21 16:13 Sodium 138 mmol/L (136-145) 10/20/21 16:13 Potassium 4.3 mmol/L (3.5-5.1) 10/20/21 16:13 Chloride 104 mmol/L (98-107) 10/20/21 16:13 Carbon Dioxide 21 mmol/L (22-29) L 10/20/21 16:13 Anion Gap 17.3 (5-19) 10/20/21 16:13 BUN 15 mg/dL (6-20) 10/20/21 16:13 Creatinine 0.8 mg/dL (0.5-0.9) 10/20/21 16:13 GFR Calculation 75.9 mL/min (90-130) L 10/20/21 16:13 Glucose 80 mg/dL (65-115) 10/20/21 16:13 Calculated Osmolality 286 mOsm/kg (285-295) 10/20/21 16:13 Calcium 9.2 mg/dL (8.5-10.5) 10/20/21 16:13 Troponin T Baseline 6 ng/L (0-10) 10/20/21 16:37 Discharge Plan Discharge Patient Disposition: Home Clinical Impression: Atypical chest pain Condition: Stable Prescriptions: New aspirin 81 mg tablet,delayed release (DR/EC) 81 mg PO DAILY Qty: 30 0RF No Action Centrum Adult 50 Fresh-Fruity 120 mcg Tablet,Chewable 1 tab PO DAILY 0RF Discharge Orders: Discharge ED (Routine); Ordered 10/20/21 Ordered By: Kevin Bertrand Discharge Diet: Usual diet Discharge Activity: Limit activity as instructed Patient Instructions: Opioid Safety Activity Restrictions/Additional Instructions: With exertional activity. Start aspirin 81 mg daily Case management will call to schedule for Lexiscan sestamibi stress test and help establish with a primary care physician. Coding Level of Care Code ED Field Artillery Operations Specialist for Aria Fwd Exam Comprehensive
[2021-10-20] MEDS: aspirin 81 mg Chew Tablet 324 MG PO (16:04)
--- NOTE | 2021-10-20 16:19 | ECG_ITS ---
[facility] Test Date: 2021-10-20 Pat Name: Marcella Whitley Department: Room: Gender: Female Credit Control Administrator: : 1970 Requested By: Kevin Obrien Order Number: [id number] Nicole MD: Nancy Crowder M.D. Measurements Intervals [place] Rate: 70 P: 54 MA: 180 QRS: -10 QRSD: 97 T: 50 QT: 391 QTc: 423 Interpretive Statements SINUS RHYTHM INCOMPLETE RIGHT BUNDLE BRANCH BLOCK [90+ ms QRS DURATION, TERMINAL R IN V1/V2, 40+ ms S IN I/aVL/V4/V5/V6] Compared to ECG 10/20/2021 14:20:40 Myocardial infarct finding no longer present Electronically Signed On 10-22-2021 8:54:44 CIVIL ENGINEERING TECHNICIAN by Nancy Crowder M.D. [id number]
[2021-10-20 16:20] LABS: Basophils # 0.1 10^3/uL (0.0-0.1); Basophils % 0.9 %; Eosinophils # 0.1 10^3/uL (0.0-0.8); Eosinophils % 1.1 %; Hematocrit 53.1 % (37.0-47.0); Hemoglobin 16.8 g/dL (11.5-15.3); Lymphocytes % 37.4 %; Mean Corpuscular HGB Conc 31.6 g/dL (30.0-36.0); Mean Corpuscular Hemoglobin 26.9 pg (28.0-34.0); Monocytes # 0.6 10^3/uL (0.2-0.9); Monocytes % 6.9 %; Neutrophils # 4.26 10^3/uL (1.8-7.7); Neutrophils % 53.4 %; Nucleated Red Blood Cells % 0 %; Platelet Count 166 10^3/cmm (130-400); Positive C 1; Red Blood Count 6.25 10^6/uL (4.1-5.3); Red Cell Distribution Width 13.2 % (12.1-15.1)
[2021-10-20 16:30] VITALS: BP 120/98; PULSE 80; RESP 17; O2SAT 97
[2021-10-20 17:18] LABS: Anion Gap 17.3 (5-19); Blood Urea Nitrogen 15 mg/dL (6-20); Calcium 9.2 mg/dL (8.5-10.5); Carbon Dioxide 21 mmol/L (22-29); Chloride 104 mmol/L (98-107); Glomerular Filtration Rate 75.9 mL/min (90-130); Glucose 80 mg/dL (65-115); Osmolality Calculated 286 mOsm/kg (285-295); Potassium 4.3 mmol/L (3.5-5.1); Sodium 138 mmol/L (136-145)
[2021-10-20 17:28] LABS: Troponin(5th) Baseline 6 ng/L (0-10)
[2021-10-20 18:58] VITALS: BP 169/134; PULSE 101; RESP 17; O2SAT 90
--- NOTE | 2021-10-26 10:39 | DCPLANNER ---
Addendum entered by Soila Gaines 11/08/21 19:15: manager of training received conformation that centralized scheduling received the order for stress test. No appointment scheduled at this time. Original Note: manager of training had message to schedule an outpatient stress test, patient does not have a primary care physician on his chart. manager of training called and spoke with patient, she stated that she would like to be set up with a primary care physician. Patient also stated that she does not have insurance at this time. manager of training will send patient both of the financial rep applications to fill out and turn back in. manager of training called the [facility] in [facility], spoke with Gail, a follow up appointment was scheduled for Friday, December 05, 2021 at 2:[address] Muniz. Patient does not have insurance, she can be seen by the provider on her scheduled appointment, or can be seen at the [facility], patient will have to pay 75.00 before she can be seen. manager of training gave patient the appointment information, and explained to patient that she would have to pay 75.00. manager of training also faxed signed order for stress test to centralized scheduling, who will call patient with appointment information.
== END 2021-10-20 19:01 | disposition home or self-care (01) ==
PROVIDERS: Emergency Provider Family Medicine
DX: R07.89 Other chest pain (principal); F17.210 Nicotine dependence, cigarettes, uncomplicated
CPT/HCPCS: 36415; 71045; 80048; 84484; 85025; 93005; 99283

== ENCOUNTER 2022-10-18 13:50 | Emergency (ER) | payer MEDICAID, SELFPAY ==
--- NOTE | 2022-10-18 13:57 | XR_ITS ---
WS: [id number] Portable AP upright chest, 10/18/2022 Clinical Data: chest pressure Comparison: Portable chest, 10/20/2021 Findings: No nodules, masses or effusions are seen. The heart is normal. The pulmonary vascularity is not increased. No pneumonia or pneumothorax is seen. XR/XR chest 1V portable [id number] Impression: Negative chest.
--- NOTE | 2022-10-18 13:57 | ECG_ITS ---
[facility] Test Date: 2022-10-18 Pat Name: Marcella Whitley Department: Room: Gender: Female Maintainer Central Office: : 1970 Requested By: Kevin Obrien Order Number: [id number] Nicole MD: Isrrael Felix M.D. Measurements Intervals [place] Rate: 96 P: 44 IN: 164 QRS: -15 QRSD: 92 T: 30 QT: 352 QTc: 446 Interpretive Statements SINUS RHYTHM INCOMPLETE RIGHT BUNDLE BRANCH BLOCK [90+ ms QRS DURATION, TERMINAL R IN V1/V2, 40+ ms S IN I/aVL/V4/V5/V6] ANTERIOR MYOCARDIAL INFARCTION , PROBABLY OLD [40+ ms Q WAVE AND/OR ST/T ABNORMALITY IN V3/V4] INFERIOR MYOCARDIAL INFARCTION , PROBABLY OLD [40+ ms Q WAVE AND/OR ST/T ABNORMALITY IN II/aVF] Compared to ECG 10/20/2021 16:26:45 Myocardial infarct finding now present Electronically Signed On 10-18-2022 23:26:25 SEAMLESS HOSIERY KNITTER by Isrrael Felix M.D. [id number]
[2022-10-18 14:00] VITALS: BP 162/91; PULSE 100; RESP 18; TEMP 36.7; O2SAT 96; BMI 34.8
[2022-10-18 14:04] VITALS: BP 136/87; PULSE 95; RESP 16; TEMP 36.8; O2SAT 97
[2022-10-18 15:03] LABS: Basophils # 0.1 10^3/uL (0.0-0.1); Basophils % 1.1 %; Eosinophils # 0.2 10^3/uL (0.0-0.8); Eosinophils % 1.9 %; Hematocrit 49.3 % (37.0-47.0); Hemoglobin 16.2 g/dL (11.5-15.3); Lymphocytes # 2.8 10^3/uL (0.8-4.8); Lymphocytes % 34.6 %; Mean Corpuscular HGB Conc 32.9 g/dL (30.0-36.0); Mean Corpuscular Hemoglobin 27.2 pg (28.0-34.0); Mean Corpuscular Volume 82.7 fl (81-99); Mean Platelet Volume 10.1 fL (7.4-10.4); Monocytes # 0.6 10^3/uL (0.2-0.9); Monocytes % 7.4 %; Neutrophils # 4.38 10^3/uL (1.8-7.7); Neutrophils % 54.9 %; Nucleated Red Blood Cells % 0 %; Platelet Count 265 10^3/cmm (130-400); Red Blood Count 5.96 10^6/uL (4.1-5.3); Red Cell Distribution Width 13.4 % (12.1-15.1)
[2022-10-18 15:22] LABS: Alanine Aminotransferase 23 U/L (0-33); Albumin Level 4.4 g/dL (3.5-5.2); Alkaline Phosphatase 76 U/L (35-105); Anion Gap 14.2 (5-19); Aspartate Amino Transferase 15 U/L (0-32); Blood Urea Nitrogen 10 mg/dL (6-20); Calcium 9.2 mg/dL (8.5-10.5); Carbon Dioxide 27 mmol/L (22-29); Chloride 103 mmol/L (98-107); Globulin 2.8 g/dL (1.3-4.6); Glomerular Filtration Rate 75.6 mL/min (90-130); Glucose 130 mg/dL (65-115); Osmolality Calculated 291 mOsm/kg (285-295); Potassium 4.2 mmol/L (3.5-5.1); Sodium 140 mmol/L (136-145); Total Bilirubin 0.3 mg/dL (0.15-1.2); Total Protein 7.2 g/dL (6.6-8.7); Troponin(5th) Baseline 6 ng/L (0-10)
--- NOTE | 2022-10-18 15:57 | ECG_ITS ---
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 Measurements Intervals [place] Rate: 95 P: 48 W[place]: 156 QRS: 1 QRSD: 85 T: 49 QT: 343 QTc: 433 Interpretive Statements SINUS RHYTHM ANTERIOR MYOCARDIAL INFARCTION , PROBABLY OLD [40+ ms Q WAVE AND/OR ST/T ABNORMALITY IN V3/V4] Compared to ECG 10/18/2022 14:07:19 Incomplete right bundle-branch block no longer present Myocardial infarct finding still present Electronically Signed On 10-18-2022 23:28:10 FRIT COATER by Isrrael Felix M.D. [email or web address] [email or web address]/store/OM/[id number]
[2022-10-18 16:30] VITALS: BP 113/82; PULSE 84; TEMP 36.7; O2SAT 97
[2022-10-18 18:42] LABS: Troponin 5 2HR Delta 0 ABS# (0-10)
--- NOTE | 2022-10-18 19:54 | CTR_ITS ---
PROCEDURE INFORMATION: Exam: CT Head Without Contrast Exam date and time: 10/18/2022 8:25 PM Age: 51 years old Clinical indication: Pain; Headache not specified; Additional info: SMITH TECHNIQUE: Imaging protocol: Computed tomography of the head without contrast. Radiation optimization: All CT scans at this facility use at least one of these dose optimization techniques: automated exposure control; mA and/or kV adjustment per patient size (includes targeted exams where dose is matched to clinical indication); or iterative reconstruction. Other protocol: This patient has received 0 known CTs and 0 known cardiac nuclear medicine studies in the 12 months prior to the current study. COMPARISON: No relevant prior studies available. RADIATION DOSE METRICS: Total DLP (mGy-cm): 1250.48 FINDINGS: Brain: Normal. No hemorrhage. Unremarkable white matter. No mass effect. Cerebral ventricles: No ventriculomegaly. Paranasal sinuses: Visualized sinuses are unremarkable. No fluid levels. Mastoid air cells: Visualized mastoid air cells are well aerated. Bones/joints: Unremarkable. No acute fracture. Soft tissues: Unremarkable. CT/CT head wo con* [id number] IMPRESSION: No acute intracranial abnormality.
--- NOTE | 2022-10-18 19:58 | W.ED.CHESTPA ---
HPI - Chest Pain General: Chief Complaint: Chest Pain Stated Complaint: SOB, chest heavy, weak Time Seen by Provider: 10/18/22 19:46 Source: patient Mode of arrival: ambulatory Limitations: no limitations History of Present Illness: 51-year-old female who states she has been having intermittent chest pains over the last 2 to 3 months states she is also had some headaches as well patient was sent here today from urgent care because she is having some chest pressure there states pain is a sharp pain in the center of her chest states that since resolved states last night she felt like her face was tightening she would like her forehead was drying up and her face is very tight with a mild headache she denies any fever denies any worsening proving factors denies any shortness of breath. Associated symptoms: Deny abdominal pain, dyspnea, fever(s), nausea or vomiting Review of Systems Const: Denies: fever(s), chills, body aches or change in appetite Eyes: Denies: blurry vision or eye discomfort ENMT: Denies: throat pain or dental pain Card: Reports: chest pain Resp: Denies: dyspnea GI: Denies: abdominal pain, nausea, vomiting or diarrhea : Denies: dysuria Musc: Denies: neck pain or back pain Skin/Breast: Denies: rash Neuro: Reports: headache(s) Psych: Denies: depression Robinson/Lymph: Denies: easy bruising All/Imm: Denies: urticaria PFSH ED PFSH: Medical History DVT (deep venous thrombosis) Uterine fibroid Social History Smoking and tobacco status: current every day smoker Female Reproductive History: Date of last menstrual period: 11/14/20 Physical Exam Const: COMMON NORMALS: no acute distress, patient oriented x3 and healthy appearing GENERAL APPEARANCE: anxious HENMT: COMMON NORMALS: normocephalic and atraumatic HEAD & SCALP: normocephalic and atraumatic Eye: COMMON NORMALS: Equal, round and reactive pupils present and EOMs intact bilaterally PUPIL: Yes Equal, round and reactive pupils present Neck/C-Spine: COMMON NORMALS: full ROM and supple Chest: COMMONS NORMALS: normal inspection of the chest and normal palpation of entire chest wall Resp: COMMON NORMALS: normal respiratory effort, No retractions, No use of accessory muscles and clear to auscultation bilaterally AUSCULTATION: clear to auscultation bilaterally Cardio: COMMON NORMALS: regular rate, regular rhythm and No murmurs present (Cardio) RATE: regular rate RHYTHM: regular rhythm GI: COMMON NORMALS: Normal to inspection, nondistended, normoactive bowel sounds present, Soft to palpation, non-tender and no masses PALPATION: Yes Soft to palpation Extremity: COMMON NORMALS: normal to inspection and full ROM Neuro: COMMON NORMALS: patient oriented x3, moves all extremities and no focal motor deficits Psych: COMMON NORMALS: mental status grossly normal, Normal thought process present and cooperative THOUGHT PROCESS: Normal thought process present Skin: COMMON NORMALS: no rashes or lesions noted and no wounds GENERAL SKIN EXAM: no rashes or lesions noted Course Vital Signs: Vital signs: Vital Signs Temperature 98.0 F 10/18/22 16:30 Pulse Rate 84 10/18/22 16:30 Respiratory Rate 16 10/18/22 14:04 Blood Pressure 113/82 10/18/22 16:30 Pulse Oximetry 97 10/18/22 16:30 Oxygen Delivery Me thod 10/18/22 14:04 MDM - Chest Pain Medical Decision Making Patient presents for chest pain been going on for quite some time her troponins here normal EKG and CT head are normal she is stable for discharge we will get her follow-up with PCP along with cardiology she return if worsening. Lab Data 10/18/22 14:53 10/18/22 14:53 Radiology Impressions Chest X-Ray 10/18/22 13:57 Impression: Negative chest. Head CT 10/18/22 19:54 IMPRESSION: No acute intracranial abnormality. Laboratory Results WBC 8.0 10^3/uL (4.0-10.0) 10/18/22 14:53 RBC 5.96 10^6/uL (4.1-5.3) H 10/18/22 14:53 Hgb 16.2 g/dL (11.5-15.3) H 10/18/22 14:53 Hct 49.3 % (37.0-47.0) H 10/18/22 14:53 MCV 82.7 fl (81-99) 10/18/22 14:53 MCH 27.2 pg (28.0-34.0) L 10/18/22 14:53 MCHC 32.9 g/dL (30.0-36.0) 10/18/22 14:53 RDW 13.4 % (12.1-15.1) 10/18/22 14:53 Plt Count 265 10^3/cmm (130-400) 10/18/22 14:53 MPV 10.1 fL (7.4-10.4) 10/18/22 14:53 Neut % (Auto) 54.9 % 10/18/22 14:53 Lymph % (Auto) 34.6 % 10/18/22 14:53 [place] % (Auto) 7.4 % 10/18/22 14:53 Eos % (Auto) 1.9 % 10/18/22 14:53 Baso % (Auto) 1.1 % 10/18/22 14:53 Neut # (Auto) 4.38 10^3/uL (1.8-7.7) 10/18/22 14:53 Lymph # (Auto) 2.8 10^3/uL (0.8-4.8) 10/18/22 14:53 [place] # (Auto) 0.6 10^3/uL (0.2-0.9) 10/18/22 14:53 Eos # (Auto) 0.2 10^3/uL (0.0-0.8) 10/18/22 14:53 Baso # (Auto) 0.1 10^3/uL (0.0-0.1) 10/18/22 14:53 Nucleated RBC % (auto) 0 % 10/18/22 14:53 Nucleated RBCs # 0.0 /100WBC 10/18/22 14:53 Sodium 140 mmol/L (136-145) 10/18/22 14:53 Potassium 4.2 mmol/L (3.5-5.1) 10/18/22 14:53 Chloride 103 mmol/L (98-107) 10/18/22 14:53 Carbon Dioxide 27 mmol/L (22-29) 10/18/22 14:53 Anion Gap 14.2 (5-19) 10/18/22 14:53 BUN 10 mg/dL (6-20) 10/18/22 14:53 Creatinine 0.8 mg/dL (0.5-0.9) 10/18/22 14:53 GFR Calculation 75.6 mL/min (90-130) L 10/18/22 14:53 Glucose 130 mg/dL (65-115) H 10/18/22 14:53 Calculated Osmolality 291 mOsm/kg (285-295) 10/18/22 14:53 Calcium 9.2 mg/dL (8.5-10.5) 10/18/22 14:53 Total Bilirubin 0.3 mg/dL (0.15-1.2) 10/18/22 14:53 AST 15 U/L (0-32) 10/18/22 14:53 ALT 23 U/L (0-33) 10/18/22 14:53 Alkaline Phosphatase 76 U/L (35-105) 10/18/22 14:53 Troponin T Baseline 6 ng/L (0-10) 10/18/22 14:53 Troponin T 120 Minute 6.00 ng/L (0-10) 10/18/22 17:10 Delta Troponin T 0 ABS# (0-10) 10/18/22 17:10 Total Protein 7.2 g/dL (6.6-8.7) 10/18/22 14:53 Albumin 4.4 g/dL (3.5-5.2) 10/18/22 14:53 Globulin 2.8 g/dL (1.3-4.6) 10/18/22 14:53 Discharge Plan Discharge Patient Disposition: Home Clinical Impression: Chest pain Condition: Stable Prescriptions: No Action albuterol sulfate 90 mcg/actuation HFA aerosol inhaler 2 puff inhalation Q6H PRN (Reason: shortness of breath or wheezing) Qty: 8.5 0RF amoxicillin 875 mg tablet 875 mg PO BID 10 Days Qty: 20 0RF Centrum Adult 50 Fresh-Fruity 120 mcg Tablet,Chewable 1 tab PO DAILY aspirin 81 mg tablet,delayed release (DR/EC) 81 mg PO DAILY Qty: 30 0RF Discharge Orders: Discharge ED (Routine); Ordered 10/18/22 Ordered By: Fabricio Quintero Referrals: Nancy Crowder MD [Physician] - 1-3 days Discharge Diet: Advance as tolerated Discharge Activity: Resume usual activity Patient Instructions: Chest Pain (ED) Coding Level of Care Code ED Call Center Dispatcher for Chg Fwd Exam Comprehensive
[2022-10-18] MEDS: LORazepam 1 mg Tablet PO (20:25)
== END 2022-10-18 21:12 | disposition home or self-care (01) ==
PROVIDERS: Family Medicine; Emergency Provider Emergency Medicine
DX: R07.9 Chest pain, unspecified (principal); Z79.82 Long term (current) use of aspirin; F17.210 Nicotine dependence, cigarettes, uncomplicated
CPT/HCPCS: 36415; 70450; 71045; 80053; 84484; 85025; 87071; 87880; 93005; 99285

== ENCOUNTER 2022-12-16 16:08 | Observation (INO) | payer MEDICAID, SELFPAY ==
[2022-12-16] VITALS (19 sets, daily range): BP systolic 114–177; BP diastolic 78–106; PULSE 77–99; RESP 13–24; TEMP 36.1–36.6; O2SAT 18–100; BMI 35.0; BMI 34.9
--- NOTE | 2022-12-16 17:56 | ECG_ITS ---
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 Measurements Intervals [place] Rate: 93 P: 48 GA: 166 QRS: -11 QRSD: 101 T: 50 QT: 348 QTc: 433 Interpretive Statements SINUS RHYTHM LOW QRS VOLTAGE IN PRECORDIAL LEADS [QRS DEFLECTION < 1.0 mV IN CHEST LEADS] INCOMPLETE RIGHT BUNDLE BRANCH BLOCK [90+ ms QRS DURATION, TERMINAL R IN V1/V2, 40+ ms S IN I/aVL/V4/V5/V6] ANTERIOR MYOCARDIAL INFARCTION , PROBABLY OLD [40+ ms Q WAVE AND/OR ST/T ABNORMALITY IN V3/V4] POSSIBLE INFERIOR MYOCARDIAL INFARCTION , OF INDETERMINATE AGE [30 ms Q WAVE IN II/aVF] Compared to ECG 10/18/2022 18:09:12 Low QRS voltage now present Incomplete right bundle-branch block now present Myocardial infarct finding still present Electronically Signed On 12-16-2022 22:45:44 CDT by Isrrael Felix M.D. [id number]
--- NOTE | 2022-12-16 17:57 | PC.NURSE ---
rounded on pt. pt c/o headache.
--- NOTE | 2022-12-16 18:21 | XRR_ITS ---
PROCEDURE INFORMATION: Exam: XR Chest Exam date and time: 12/16/2022 7:26 PM Age: 51 years old Clinical indication: Pain; Chest pressure; Additional info: Cp TECHNIQUE: Imaging protocol: Radiologic exam of the chest. Views: 1 view. COMPARISON: CR XR chest 1V portable [id number] 10/20/2021 3:22 PM FINDINGS: Lungs: Unremarkable. No consolidation. Pleural spaces: Unremarkable. No pleural effusion. No pneumothorax. Heart/Mediastinum: Unremarkable. No cardiomegaly. Bones/joints: Unremarkable. XR/XR chest 1V portable [id number] IMPRESSION: No acute findings.
[2022-12-16] MEDS: aspirin 81 mg Chew Tablet 324 MG PO (18:47)
--- NOTE | 2022-12-16 18:47 | W.ED.CHESTPA ---
HPI - Chest Pain General: Chief Complaint: Chest Pain Stated Complaint: Dr Jaramillo sent cardiac Time Seen by Provider: 12/16/22 18:21 Source: patient Mode of arrival: ambulatory Limitations: no limitations History of Present Illness: 51-year-old female states has been having chest pain over the last few months she is seen in the cardiology clinic today by Dr. Jaramillo who did set her up as he had wanted her admitted and he feels like she needs a cath tomorrow she denies any pain currently she denies any shortness of breath states her pain has been intermittent pressure type pain in her chest. Associated symptoms: Deny abdominal pain, dyspnea, fever(s), nausea or vomiting Review of Systems Const: Denies: fever(s), chills, body aches or change in appetite Eyes: Denies: blurry vision or eye discomfort ENMT: Denies: throat pain or dental pain Card: Reports: chest pain Resp: Denies: dyspnea GI: Denies: abdominal pain, nausea, vomiting or diarrhea : Denies: dysuria Musc: Denies: neck pain or back pain Skin/Breast: Denies: rash Neuro: Denies: headache(s) Psych: Denies: depression Robinson/Lymph: Denies: easy bruising All/Imm: Denies: urticaria PFSH ED PFSH: Medical History DVT (deep venous thrombosis) Uterine fibroid Social History Smoking and tobacco status: current every day smoker Physical Exam Const: COMMON NORMALS: patient oriented x3 and healthy appearing HENMT: COMMON NORMALS: normocephalic and atraumatic HEAD & SCALP: normocephalic and atraumatic Eye: COMMON NORMALS: Equal, round and reactive pupils present and EOMs intact bilaterally PUPIL: Yes Equal, round and reactive pupils present Neck/C-Spine: COMMON NORMALS: full ROM and supple Chest: COMMONS NORMALS: normal inspection of the chest and normal palpation of entire chest wall Resp: COMMON NORMALS: normal respiratory effort, No retractions, No use of accessory muscles and clear to auscultation bilaterally AUSCULTATION: clear to auscultation bilaterally Cardio: COMMON NORMALS: regular rate, regular rhythm and No murmurs present (Cardio) RATE: regular rate RHYTHM: regular rhythm GI: COMMON NORMALS: Normal to inspection, nondistended, normoactive bowel sounds present, Soft to palpation, non-tender and no masses PALPATION: Yes Soft to palpation Extremity: COMMON NORMALS: normal to inspection and full ROM Neuro: COMMON NORMALS: patient oriented x3, moves all extremities and no focal motor deficits Psych: COMMON NORMALS: mental status grossly normal, Normal thought process present and cooperative THOUGHT PROCESS: Normal thought process present Skin: COMMON NORMALS: no rashes or lesions noted and no wounds GENERAL SKIN EXAM: no rashes or lesions noted Course Vital Signs: Vital signs: Vital Signs Temperature 96.9 F L 12/16/22 17:49 Pulse Rate 99 12/16/22 18:51 Respiratory Rate 24 H 12/16/22 18:51 Blood Pressure 152/105 12/16/22 18:51 Pulse Oximetry 99 12/16/22 18:51 Oxygen Delivery Me thod 12/16/22 18:51 MDM - Chest Pain Medical Decision Making Patient presents for chest pain her initial EKG and troponin here negative spoke to Dr. Jaraimllo who had sent her over here he wants her admitted and he is going to do a cath in the morning we will give her a dose of Lovenox. Lab Data 12/16/22 18:30 12/16/22 18:30 Laboratory Results WBC 8.0 10^3/uL (4.0-10.0) 12/16/22 18:30 RBC 5.57 10^6/uL (4.1-5.3) H 12/16/22 18:30 Hgb 15.1 g/dL (11.5-15.3) 12/16/22 18:30 Hct 46.6 % (37.0-47.0) 12/16/22 18:30 MCV 83.7 fl (81-99) 12/16/22 18:30 MCH 27.1 pg (28.0-34.0) L 12/16/22 18:30 MCHC 32.4 g/dL (30.0-36.0) 12/16/22 18:30 RDW 12.9 % (12.1-15.1) 12/16/22 18:30 Plt Count 224 10^3/cmm (130-400) 12/16/22 18:30 MPV 10.4 fL (7.4-10.4) 12/16/22 18:30 Neut % (Auto) 46.9 % 12/16/22 18:30 Lymph % (Auto) 44.7 % 12/16/22 18:30 [place] % (Auto) 6.0 % 12/16/22 18:30 Eos % (Auto) 1.1 % 12/16/22 18:30 Baso % (Auto) 1.0 % 12/16/22 18:30 Neut # (Auto) 3.75 10^3/uL (1.8-7.7) 12/16/22 18:30 Lymph # (Auto) 3.6 10^3/uL (0.8-4.8) 12/16/22 18:30 [place] # (Auto) 0.5 10^3/uL (0.2-0.9) 12/16/22 18:30 Eos # (Auto) 0.1 10^3/uL (0.0-0.8) 12/16/22 18: Baso # (Auto) 0.1 10^3/uL (0.0-0.1) 12/16/22 18:30 Nucleated RBC % (auto) 0 % 12/16/22 18: Nucleated RBCs # 0.0 /100WBC 12/16/22 18:30 Potassium 3.9 mmol/L (3.5-5.1) 12/16/22 18: Chloride 99 mmol/L (98-107) 12/16/22 18: Carbon Dioxide 24 mmol/L (22-29) 12/16/22 18:30 Anion Gap 14.9 (5-19) 12/16/22 18:30 BUN 10 mg/dL (6-20) 12/16/22 18:30 Creatinine 0.8 mg/dL (0.5-0.9) 12/16/22 18:30 Calcium 8.7 mg/dL (8.5-10.5) 12/16/22 18:30 Total Bilirubin 0.2 mg/dL (0.15-1.2) 12/16/22 18:30 AST 14 U/L (0-32) 12/16/22 18:30 ALT 25 U/L (0-33) 12/16/22 18:30 Alkaline Phosphatase 62 U/L (35-105) 12/16/22 18:30 Troponin T Baseline 6 ng/L (0-10) 12/16/22 18:30 NT-Pro-B Natriuret Pep 36 pg/mL (0-125) 12/16/22 18:30 Total Protein 7.1 g/dL (6.6-8.7) 12/16/22 18:30 Albumin 4.5 g/dL (3.5-5.2) 12/16/22 18:30 Globulin 2.6 g/dL (1.3-4.6) 12/16/22 18:30 EKG Data EKG 1: I personally reviewed and interpreted this EKG as follows: EKG interpretation date: 12/16/22 EKG interpretation time: 17:56 Interpretation: nsr hr [address] or t wave abnormalities qrs 101 qtc 398 Discharge Plan Discharge Patient Disposition: Admitted As Inpatient Clinical Impression: Chest pain Condition: Stable Prescriptions: No Action albuterol sulfate 90 mcg/actuation HFA aerosol inhaler 2 puff inhalation Q6H PRN (Reason: shortness of breath or wheezing) Qty: 8.5 0RF metoprolol tartrate 25 mg tablet 25 mg PO BID 30 Days Qty: 60 5RF amlodipine 5 mg tablet 5 mg PO DAILY Qty: 30 5RF albuterol sulfate [Ventolin HFA] 90 mcg/actuation HFA aerosol inhaler 2 puff inhalation Q6H PRN budesonide-formoterol [Symbicort] 80-4.5 mcg/actuation HFA aerosol inhaler 2 puff inhalation BID cyclobenzaprine 10 mg tablet 10 mg PO TID Centrum Adult 50 Fresh-Fruity 120 mcg Tablet,Chewable 1 tab PO DAILY aspirin 81 mg tablet,delayed release (DR/EC) 81 mg PO DAILY Qty: 30 0RF Coding Level of Care Code ED Laboratory Courier for Aria Ramirez
[2022-12-16 18:52] LABS: Basophils # 0.1 10^3/uL (0.0-0.1); Eosinophils # 0.1 10^3/uL (0.0-0.8); Eosinophils % 1.1 %; Hematocrit 46.6 % (37.0-47.0); Hemoglobin 15.1 g/dL (11.5-15.3); Lymphocytes # 3.6 10^3/uL (0.8-4.8); Lymphocytes % 44.7 %; Mean Corpuscular HGB Conc 32.4 g/dL (30.0-36.0); Mean Corpuscular Hemoglobin 27.1 pg (28.0-34.0); Mean Corpuscular Volume 83.7 fl (81-99); Mean Platelet Volume 10.4 fL (7.4-10.4); Monocytes # 0.5 10^3/uL (0.2-0.9); Neutrophils # 3.75 10^3/uL (1.8-7.7); Neutrophils % 46.9 %; Nucleated Red Blood Cells % 0 %; Platelet Count 224 10^3/cmm (130-400); Red Blood Count 5.57 10^6/uL (4.1-5.3); Red Cell Distribution Width 12.9 % (12.1-15.1)
[2022-12-16] MEDS: LORazepam 2 mg/mL INJ 1 mL 1 MG IVP (19:02)
[2022-12-16 19:18] LABS: Troponin(5th) Baseline 6 ng/L (0-10)
[2022-12-16 19:27] LABS: Alanine Aminotransferase 25 U/L (0-33); Albumin Level 4.5 g/dL (3.5-5.2); Alkaline Phosphatase 62 U/L (35-105); Anion Gap 14.9 (5-19); Aspartate Amino Transferase 14 U/L (0-32); Blood Urea Nitrogen 10 mg/dL (6-20); Calcium 8.7 mg/dL (8.5-10.5); Carbon Dioxide 24 mmol/L (22-29); Chloride 99 mmol/L (98-107); Globulin 2.6 g/dL (1.3-4.6); Glomerular Filtration Rate 75.6 mL/min (90-130); Glucose 157 mg/dL (65-115); NT Pro B Type Natriuretic Pept 36 pg/mL (0-125); Osmolality Calculated 280 mOsm/kg (285-295); Potassium 3.9 mmol/L (3.5-5.1); Sodium 134 mmol/L (136-145); Total Bilirubin 0.2 mg/dL (0.15-1.2); Total Protein 7.1 g/dL (6.6-8.7)
--- NOTE | 2022-12-16 19:30 | PM.HP ---
Providers/Chief Complaint Chief Complaint: Dr Jaramillo sent cardiac History of Present Illness 51-year-old female with history of DVT, uterine fibroids, COPD/emphysema. Current smoker presented to the hospital today for chest pain. She saw pc technician Dr. Jaramillo in the clinic today and he suggested her to get admitted for cardiac angiogram in the morning. She has been having chest pain on and off for the last 2 years but has not really seen a doctor due to lack of insurance. In the last couple of months the frequency has been increasing. She has exertional shortness of breath as well that usually lasts 5 to 10 minutes and then subsides with rest. Also did note some generalized weakness and fatigue. Currently in the ER denies chest pain, shortness of breath but does state that she has been having intermittent pressure in her chest. Denies nausea vomiting fever abdominal pain, diarrhea. Patient is a current smoker. Patient is describing her chest pain as stabbing in nature sometimes pressure sensation which would radiate towards her left shoulder and face which she is describing as sensation of face being lifted up, headache in her temples, she is also endorsing nausea. Stating she does not have anxiety but she has been praying and trying to quit smoking she is currently smoking 1 pack/day, previously she was a 3 pack/day smoker On arrival to ER blood pressure 156/104, respiratory 22, pulse 89, temperature 96.9, saturating 99% on room air. EKG did not show acute ischemic changes. WBC 8, hemoglobin 15.1, platelets 224, sodium 134, potassium 3.9, glucose 157, ALT 14, AST 25, baseline troponin 6. BNP 36. 2-hour troponin and 6-hour troponin is pending at this time. Review of Systems Const: Denies: fever(s) Eyes: Denies: change in vision ENMT: Denies: throat pain Card: Reports: chest pain Resp: Reports: dyspnea GI: Denies: abdominal pain : Denies: flank pain Musc: Denies: neck pain Skin/Breast: Denies: rash Neuro: Reports: headache(s) Psych: Reports: anxiety Endo: Denies: polyuria Robinson/Lymph: Denies: easy bruising Medications/Allergies Home Medications Medication Instructions Recorded Confirmed Last Taken Type aspirin 81 mg tablet,delayed 81 mg PO DAILY #30 tabs 10/20/21 12/16/22 12/15/22 Rx release albuterol sulfate 90 mcg/actuation 2 puff inhalation Q6H PRN 12/15/21 12/16/22 Unknown Rx aerosol inhaler shortness of breath or wheezing #8.5 grams budesonide-formoterol HFA 80 2 puff inhalation BID 12/04/22 12/16/22 12/15/22 History mcg-4.5 mcg/actuation aerosol inhaler (Symbicort) cyclobenzaprine 10 mg tablet 10 mg PO TID 12/04/22 12/16/22 12/14/22 History Allergies Allergy/AdvReac Type Severity Reaction Status Date / Time apixaban [From Eliquis] Allergy Unknown Verified 12/16/22 15:14 PFSH Acute PFSH: Medical History (Updated 12/16/22 @ 21:21 by David Galdamez MD) Benign essential HTN DVT (deep venous thrombosis) Intracranial hemorrhage Uterine fibroid Social History Smoking and tobacco status: current every day smoker Vitals/I&O/Wt Last Vital Signs Temp 96.9 F L 12/16/22 17:49 Pulse 99 12/16/22 18:51 Resp 24 H 12/16/22 18:51 BP 152/105 12/16/22 18:51 Pulse Ox 99 12/16/22 18:51 O2 Del Method 12/16/22 18:51 Weight last 48 hrs Weight 92.533 kg Physical Exam Narrative: General: Alert oriented x3, Patient is very anxious appearing Hypertensive Currently doing well on room air . Stated age, comfortable at this point Upper chest pain HEENT: Normocephalic, atraumatic, EOMI, Cardio: Regular rate rhythm, normal S1-S2, no murmurs rubs gallops, Respiratory: Good bilateral air entry, no wheezes no rhonchi appreciated GI: Abdomen soft, nontender, nondistended, bowel sounds + Behavior: Appropriate and cooperative Extremities: Pulses 2+, no edema, no cyanosis Data 12/16/22 18:30 12/16/22 18:30 A&P Assessment and plan (1) Unstable angina: (2) Nicotine dependence: (3) Anxiety: Plan #Unstable Angina #Active smoker, anxious appearing #Hx of COPD #Current everyday smoker #Allergic to eliquis Currently chest pain-free Hypertensive, appearing anxious at this point - Start on aspirin, , therapeutic lovenox, atorvastatin, - duoneb q6h PRN - Follow troponin trend, 2 hour, 6 hour pending at this time - Check HBA1c, lipid profile, TSH - Nicotine patch offered - Consult Dr. Jaramillo/cardiology Patient is trying to quit smoking She has tried Chantix in the past Will request nicotine patch Patient will go for coronary angiogram as per Dr. Hardin recommendation Echo has been done in the ER Full Code DVT PPX: Therapeutic lovenox. Attestations Medical Necessity Statement*: Anticipate discharge within 48 hours Diagnoses Unstable angina I20.0 Nicotine dependence F17.200 Anxiety F41.9
[2022-12-16] MEDS: enoxaparin 100 mg/mL Syringe 90 MG SUBCUT (19:38)
--- NOTE | 2022-12-16 19:39 | USCV_ITS ---
Marcella Whitley Age: 51 Gender: F : 1970 Exam Date: 12/16/2022 20:11 Ordering Phys: David Galdamez MD Technologist: MORRIS [place] [facility] [place]: unstable angina. No history of cardiac intervention per patient. BP: 177 / 104 HR: 79 Rhythm: Sinus Technical Quality: Adequate MEASUREMENTS (Male / Female) Normal Values 2D ECHO LV Diastolic Diameter PLAX 3.3 cm 4.2 - 5.9 / 3.9 - 5.3 cm LV Systolic Diameter PLAX 2.3 cm IVS Diastolic Thickness 1.6 cm 0.6 - 1.0 / 0.6 - 0.9 cm IVS Systolic Thickness 1.8 cm LVPW Diastolic Thickness 1.3 cm 0.6 - 1.0 / 0.6 - 0.9 cm LVPW Systolic Thickness 1.3 cm LVOT Diameter 2.1 cm LV Ejection Fraction 2D Teich 56.8 % LV Ejection Fraction MOD 2C 68.4 % LV Ejection Fraction 2C AL 68.1 % LA Diameter 3.1 cm LA Width 4.0 cm LA Height 5.0 cm RA Width 2.6 cm RA Height 4.9 cm Aorta at Sinotubular Diameter 3.0 cm IVC Diameter 1.5 cm M-MODE Aortic Annulus Diameter 3.0 cm LA Ao Ratio MM 1.1 MV E Point Septal Separation 0.4 cm DOPPLER AV Peak Velocity 97.0 cm/s LVOT Peak Velocity 97.0 cm/s AV Area Cont Eq vti 3.8 cm squared AV Area Cont Eq pk 3.6 cm squared MV Peak Velocity 68.0 cm/s MV Area PHT 2.4 cm squared Mitral E to A Ratio 1.1 MV E' Velocity 31.5 cm/s Mitral E to MV E' Ratio 9.3 Mitral E to LV E' Lateral Ratio 8.2 Mitral E to LV E' Septal Ratio 10.7 TV Peak E Velocity 40.0 cm/s PV Peak Velocity 74.0 cm/s RV Acceleration Time 0.2 s RV Ejection Time 0.3 s RV AcT/ET 0.5 FINDINGS Left Ventricle Normal LV size and ejection fraction, 68%. Hypokinetic basal inferolateral segment. Minimally dyskinetic basal septal segment. Normal LV size Right Ventricle Normal right ventricular size and systolic function. Right Atrium Normal right atrial size. Left Atrium Normal left atrial size. Mitral Valve No gross abnormalities noted Aortic Valve Trace to mild aortic regurgitation Tricuspid Valve No gross abnormalities noted Pulmonic Valve Trace pulmonary valve regurgitation. Pericardium No pericardial effusion. Aorta Normal aortic annulus size. IVC Normal inferior vena cava. CONCLUSIONS Normal LV size and ejection fraction, 68%. Hypokinetic basal inferolateral segment. Minimally dyskinetic basal septal segment. Normal LV size. Trace to mild aortic regurgitation. Trace pulmonary valve regurgitation. There is no pericardial effusion. There are no intracardiac masses. No previous study is available for comparison. Dr Yoana Jaramillo MD FACC (Electronically Signed) Final Date: 16 December 2022 21:42 S
--- NOTE | 2022-12-16 20:10 | ECG_ITS ---
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 Measurements Intervals [place] Rate: 85 P: 43 [place]: 191 QRS: 34 QRSD: 74 T: 32 QT: 353 QTc: 421 Interpretive Statements SINUS RHYTHM ANTEROSEPTAL MYOCARDIAL INFARCTION , OF INDETERMINATE AGE [40+ ms Q WAVE IN V1-V4] Compared to ECG 12/16/2022 23:01:48 No significant changes Electronically Signed On 12-17-2022 11:54:54 CDT by Isrrael Felix M.D. [id number]
[2022-12-16 20:51] LABS: Chol HDL Ratio 5.82 mg/dL (0.0-4.40); Cholesterol 198 mg/dL (0-200); HDL Cholesterol 34 mg/dL (60-100); LDL Cholesterol Calculated 120 mg/dL (50-129); LDL HDL Ratio 3.53 RATIO (0.00-3.22); Thyroid Stimulating Hormone 1.93 uIU/mL (0.27-4.20); Triglycerides 222 mg/dL (0-150)
[2022-12-16 21:23] LABS: Troponin 5 2HR Delta 0 ABS# (0-10)
[2022-12-16 22:08] LABS: Estmated Average Glucose 137; Hemoglobin A1C 6.4 % (4.0-6.0)
[2022-12-16] MEDS: lisinopril 20 mg Tablet PO (22:13)
[2022-12-16] MEDS: sodium chloride 0.9% 1,000 ML 75 ML IV (22:13)
--- NOTE | 2022-12-16 22:52 | P.CONIM_ITS ---
Providers/Reason For Consult Consulting Physician/Specialty*: CAYETANO Jaramillo MD/cardiology Reason for Consult*: Patient with unstable anginal symptoms Requesting Physician: Dr Galdamez Attending Physician: David Galdamez MD History of Present Illness History of Present Illness Marcella Whitley is a 51 year old female is admitted to the hospital through the emergency room where she presented with complaints of increasing episodes of chest pain. This patient has a history of chest pain off and on for the last 2 years or so. Apparently she was reluctant to go to the physician because of the lack of insurance. Lately the chest pain has been getting more frequent especially over the last 2 to 3 months. She been having the symptoms almost every day, mostly precipitated with exertion. Pain is in the mid sternal and left inframammary region associated with the shortness of breath, nausea and sweating. It radiates to the left shoulder and to the left arm. The pain may last anywhere f rom 5 to 15 minutes and usually subsides with rest. Her exercise tolerance has been significantly declining over the last couple of months. She also has some generalized weakness and fatigue. She was seen in the emergency room for these complaints a month ago. Myocardial infarction was ruled out at that time. She was recommended for cardiology evaluation as an outpatient. Her blood pressure also was found to be elevated. Her systolic blood pressure may go into the 200 range and the diastolic in the 110s and 120s. She was prescribed losartan by the primary care physician. Because of her history of kidney problem, she was reluctant to take this medication. She was wanting to wait till she sees me to make a decision. She has no history for diabetes. She has a history of COPD/emphysema. Continues to smoke at least a pack a day for the last more than 30 years. No alcohol abuse or any other substance abuse. She has no fever, chills or cough. Whenever the blood pressure goes up, she has headache associated with some tight feeling in the face. Apparently she has not been doing any medication so far she seems to think that she might have had a heart attacks in the past but never been evaluated. Her maternal grandfather had a myocardial infarction in his 60s and also had a CVA. Maternal grandmother had myocardial infarction in her 50s. Paternal grandmother had a myocardial infarction in her 70s and she also had a cancer. One of her brothers is known to have some heart problems but the details are not available. Review of Systems Narrative: CONSTITUTIONAL: No fever or chills. Dyspnea on exertion and generalized weakness. EYES: No blurring of vision or other visual disturbances lately. ENT: No hoarseness of voice, auditory disturbances or sore throat. CARDIOVASCULAR: As mentioned above. RESPIRATORY: No significant cough. GASTROINTESTINAL: No hematemesis or melena. GENITOURINARY: No dysuria or hematuria. INTEGUMENTARY: No skin rashes or history of skin cancer. NEURO: No transient ischemic attacks or amaurosis. PSYCHIATRIC: No history of psychosis or major depression. HEMATOLOGIC: No bleeding disorders or significant anemia. ENDOCRINE: No history of polyuria or polydipsia. MUSCULOSKELETAL: No recent joint pain or swelling. ALLERGY/IMMUNOLOGY: As mentioned above. Medications/Allergies Home Medications Medication Instructions Recorded Confirmed Last Taken Type aspirin 81 mg tablet,delayed 81 mg PO DAILY #30 tabs 10/20/21 12/16/22 12/15/22 Rx release albuterol sulfate 90 mcg/actuation 2 puff inhalation Q6H PRN 12/15/21 12/16/22 Unknown Rx aerosol inhaler shortness of breath or wheezing #8.5 grams budesonide-formoterol HFA 80 2 puff inhalation BID 12/04/22 12/16/22 12/15/22 History mcg-4.5 mcg/actuation aerosol inhaler (Symbicort) cyclobenzaprine 10 mg tablet 10 mg PO TID 12/04/22 12/16/22 12/14/22 History Allergies Allergy/AdvReac Type Severity Reaction Status Date / Time apixaban [From Eliquis] Allergy Unknown Verified 12/16/22 15:14 Current Medications Generic Name Dose Route Start Last Admin Trade Name Freq PRN Reason Stop Dose Admin Sodium Chloride 1,000 mls @ 75 mls/hr 12/16/22 19:45 12/16/22 22:13 Sodium Chloride 0.9% IV 75 mls/hr .[id number] JOLLY Administration Lisinopril 20 mg 12/16/22 21:25 12/16/22 22:13 Lisinopril 20 Mg Tablet PO 20 mg DAILY JOLLY Administration PFSH Acute PFSH: Medical History Benign essential HTN DVT (deep venous thrombosis) Intracranial hemorrhage Uterine fibroid Social History Smoking and tobacco status: current every day smoker Vitals/I&O/Wt Last Vital Signs Temp 96.9 F L 12/16/22 17:49 Pulse 89 12/16/22 22:00 Resp 18 12/16/22 21:05 BP 162/105 12/16/22 21:05 Pulse Ox 99 12/16/22 21:05 O2 Del Method 12/16/22 21:11 12/16/22 12/16/22 12/16/22 06:59 14:59 22:59 Intake Total 340 / 340 Balance 340 / 340 Weight last 48 hrs Weight 203 lb 9 oz Weight 204 lb Physical Exam Narrative: GENERAL: The patient is alert and oriented times three. Not in any acute distress. HEENT: No significant pallor, icterus or lymphadenopathy.Oral cavity: There are no mucous membrane lesions. NECK: Trachea appears to be central. No masses noted. No JVD or thyromegaly appreciated. RESPIRATORY: Chest is symmetrical. No intercostals muscle retraction or any accessory muscle activation. There is no chest wall tenderness. Breath sounds are heard bilaterally. No rales or rhonchi heard. No evidence of any consolidation. BREASTS: Deferred. HEART: The heart sounds are normal. No S3 or S4. No significant murmurs. No pericardial rub ABDOMEN: No vessel pulsations or distention. No tenderness. No organomegaly appreciated. Bowel sounds are normally heard. : Deferred. RECTAL: Deferred. LYMPHATIC: No lymphadenopathy noted in the neck. EXTREMITIES: No edema or cyanosis. No clubbing. Dorsalis pedis and posterior pulses are palpable and fairly good volume and amplitude MUSCULOSKELETAL: No acute joint deformities or swelling SKIN: There are no significant rashes or ecchymosis NEUROPSYCHIATRIC: The patient is alert and oriented x3. Appears to be in a good mood. No tremors or rigidity noted. Data 12/16/22 18:30 12/16/22 18:30 Other Labs: Laboratory Last Values WBC 8.0 10^3/uL (4.0-10.0) 12/16/22 18:30 RBC 5.57 10^6/uL (4.1-5.3) H 12/16/22 18:30 Hgb 15.1 g/dL (11.5-15.3) 12/16/22 18: Hct 46.6 % (37.0-47.0) 12/16/22 18: MCV 83.7 fl (81-99) 12/16/22 18: MCH 27.1 pg (28.0-34.0) L 12/16/22 18: MCHC 32.4 g/dL (30.0-36.0) 12/16/22 18: RDW 12.9 % (12.1-15.1) 12/16/22 18: Plt Count 224 10^3/cmm (130-400) 12/16/22 18: MPV 10.4 fL (7.4-10.4) 12/16/22 18: Neut % (Auto) 46.9 % 12/16/22 18: Lymph % (Auto) 44.7 % 12/16/22 18: [place] % (Auto) 6.0 % 12/16/22 18: Eos % (Auto) 1.1 % 12/16/22 18: Baso % (Auto) 1.0 % 12/16/22 18: Neut # (Auto) 3.75 10^3/uL (1.8-7.7) 12/16/22 18: Lymph # (Auto) 3.6 10^3/uL (0.8-4.8) 12/16/22 18: [place] # (Auto) 0.5 10^3/uL (0.2-0.9) 12/16/22 18: Eos # (Auto) 0.1 10^3/uL (0.0-0.8) 12/16/22 18: Baso # (Auto) 0.1 10^3/uL (0.0-0.1) 12/16/22 18: Nucleated RBC % (auto) 0 % 12/16/22 18: Nucleated RBCs # 0.0 /100WBC 12/16/22 18: Sodium 134 mmol/L (136-145) L 12/16/22 18: Potassium 3.9 mmol/L (3.5-5.1) 12/16/22 18:30 Chloride 99 mmol/L (98-107) 12/16/22 18:30 Carbon Dioxide 24 mmol/L (22-29) 12/16/22 18:30 Anion Gap 14.9 (5-19) 12/16/22 18:30 BUN 10 mg/dL (6-20) 12/16/22 18:30 Creatinine 0.8 mg/dL (0.5-0.9) 12/16/22 18:30 GFR Calculation 75.6 mL/min (90-130) L 12/16/22 18:30 Glucose 157 mg/dL (65-115) H 12/16/22 18:30 Estimat Average Glucose 137 12/16/22 18:10 Hemoglobin A1c 6.4 % (4.0-6.0) H 12/16/22 18:10 Calculated Osmolality 280 mOsm/kg (285-295) L 12/16/22 18:30 Calcium 8.7 mg/dL (8.5-10.5) 12/16/22 18:30 Total Bilirubin 0.2 mg/dL (0.15-1.2) 12/16/22 18:30 AST 14 U/L (0-32) 12/16/22 18:30 ALT 25 U/L (0-33) 12/16/22 18:30 Alkaline Phosphatase 62 U/L (35-105) 12/16/22 18:30 Troponin T Baseline 6 ng/L (0-10) 12/16/22 18:30 Troponin T 120 Minute 6.00 ng/L (0-10) 12/16/22 20:50 Delta Troponin T 0 ABS# (0-10) 12/16/22 20:50 NT-Pro-B Natriuret Pep 36 pg/mL (0-125) 12/16/22 18:30 Total Protein 7.1 g/dL (6.6-8.7) 12/16/22 18:30 Albumin 4.5 g/dL (3.5-5.2) 12/16/22 18:30 Globulin 2.6 g/dL (1.3-4.6) 12/16/22 18:30 Triglycerides 222 mg/dL (0-150) H 12/16/22 18:10 Cholesterol 198 mg/dL (0-200) 12/16/22 18:10 LDL Cholesterol, Calc 120 mg/dL (50-129) 12/16/22 18:10 HDL Cholesterol 34 mg/dL (60-100) L 12/16/22 18:10 LDL/HDL Ratio 3.53 RATIO (0.00-3.22) H 12/16/22 18:10 Cholesterol/HDL Ratio 5.82 mg/dL (0.0-4.40) H 12/16/22 18:10 TSH 1.93 uIU/mL (0.27-4.20) 12/16/22 18:10 EKG 1: My Interpretation: Sinus rhythm with heart rate of 97 bpm. Features of old anteroseptal and inferior wall myocardial infarction. Incomplete right bundle branch block pattern. Some nonspecific T wave changes. Other data: Echocardiogram ?Normal LV size and ejection fraction, 68%.? ?Hypokinetic basal inferolateral segment.? ?Minimally dyskinetic basal septal segment. ?Normal LV size. ?Trace to mild? aortic regurgitation. ?Trace pulmonary valve regurgitation. ?There is no pericardial effusion. ?There are no intracardiac masses. ?No previous study is available for comparison. A&P Assessment and plan (1) Atherosclerotic heart disease of [place] coronary artery with unstable angina pectoris: Patient has EKG evidence of old anteroseptal and inferior wall myocardial infarction. Her symptoms are suggestive of unstable angina. There is no acute ischemic changes on the EKG. No evidence of myocardial injury. She may be treated with a beta-gabe, aspirin, Lovenox and statin. (2) Benign essential HTN: Patient has stage II hypertension. She has been started on beta-gabe and a calcium gabe. Apparently she has a history of kidney problems in the past and is not wanting to take JOSE inhibitor, even though the kidney function is normal at this time. (3) Nicotine dependence: Patient is strongly advised to quit smoking. (4) Dyslipidemia: Agree with the Lipitor. Plan Echocardiogram was reviewed. Findings as above. Patient is to be closely monitored on telemetry. We may go ahead and do a cardiac catheterization tomorrow to evaluate her coronary status and decide on further management. Based on the clinical progress and the results of the tests, further recommendations will be made. Thank you for the opportunity to evaluate this patient and make these recommendations Coding Level of Care Code 11064 Diagnoses Atherosclerotic heart disease of [place] coronary artery with unstable angina pectoris I25.110 Benign essential HTN I10 Nicotine dependence F17.200 Dyslipidemia E78.5
--- NOTE | 2022-12-16 23:01 | ECG_ITS ---
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 Measurements Intervals [place] Rate: 83 P: 34 [place]: 172 QRS: 35 QRSD: 98 T: 32 QT: 382 QTc: 450 Interpretive Statements SINUS RHYTHM POSSIBLE ANTERIOR MYOCARDIAL INFARCTION , PROBABLY OLD [30 ms Q WAVE IN V3/V4, OR R < 0.2 mV IN V4] Compared to ECG 12/16/2022 17:56:21 Incomplete right bundle-branch block no longer present Myocardial infarct finding still present Electronically Signed On 12-17-2022 11:53:56 CDT by Isrrael Felix M.D. [id number]
--- NOTE | 2022-12-16 23:05 | PC.NURSE ---
Dr. Jaramillo called for update on patient. Informed no chest pain present. BP 131/88. Patient already received Lisinopril. Order to hold Metoprolol and Norvasc tonight
[2022-12-17] VITALS (41 sets, daily range): BP systolic 93–143; BP diastolic 61–108; PULSE 53–103; RESP 14–24; TEMP 36.6–37.1; O2SAT 92–99; BMI 34.9
[2022-12-17 00:45] LABS: Troponin 5 6HR Delta 0 ng/L (0-12)
--- NOTE | 2022-12-17 02:37 | ECG_ITS ---
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 Measurements Intervals [place] Rate: 77 P: 38 [place]: 175 QRS: 36 QRSD: 100 T: 32 QT: 395 QTc: 448 Interpretive Statements SINUS RHYTHM Compared to ECG 12/17/2022 00:31:02 Myocardial infarct finding no longer present Electronically Signed On 12-17-2022 11:54:51 CDT by Isrrael Felix M.D. [id number]
[2022-12-17] MEDS: acetaminophen 325 mg Tablet 650 MG PO (02:41)
[2022-12-17 04:43] LABS: Basophils # 0.1 10^3/uL (0.0-0.1); Basophils % 1.2 %; Eosinophils # 0.1 10^3/uL (0.0-0.8); Eosinophils % 1.3 %; Hemoglobin 14.5 g/dL (11.5-15.3); Lymphocytes # 3.1 10^3/uL (0.8-4.8); Lymphocytes % 51.4 %; Mean Corpuscular HGB Conc 32.2 g/dL (30.0-36.0); Mean Corpuscular Hemoglobin 26.8 pg (28.0-34.0); Mean Corpuscular Volume 83.2 fl (81-99); Mean Platelet Volume 10.4 fL (7.4-10.4); Monocytes # 0.5 10^3/uL (0.2-0.9); Monocytes % 7.7 %; Neutrophils # 2.32 10^3/uL (1.8-7.7); Neutrophils % 38.2 %; Nucleated Red Blood Cells % 0 %; Platelet Count 177 10^3/cmm (130-400); Red Blood Count 5.41 10^6/uL (4.1-5.3); Red Cell Distribution Width 12.8 % (12.1-15.1); White Blood Count 6.1 10^3/uL (4.0-10.0)
[2022-12-17 05:05] LABS: Alanine Aminotransferase 26 U/L (0-33); Albumin Level 3.7 g/dL (3.5-5.2); Alkaline Phosphatase 48 U/L (35-105); Anion Gap 14.9 (5-19); Aspartate Amino Transferase 17 U/L (0-32); Blood Urea Nitrogen 11 mg/dL (6-20); Calcium 8.5 mg/dL (8.5-10.5); Carbon Dioxide 23 mmol/L (22-29); Chloride 106 mmol/L (98-107); Globulin 2.6 g/dL (1.3-4.6); Glomerular Filtration Rate 75.6 mL/min (90-130); Glucose 98 mg/dL (65-115); Osmolality Calculated 289 mOsm/kg (285-295); Potassium 3.9 mmol/L (3.5-5.1); Sodium 140 mmol/L (136-145); Total Bilirubin 0.3 mg/dL (0.15-1.2); Total Protein 6.3 g/dL (6.6-8.7)
--- NOTE | 2022-12-17 07:47 | PM.PN ---
Subjective Subjective: The patient is feeling much better today. Myocardial infarction is ruled out. No shortness of breath. No fever, chills or cough. No other specific complaints. Medications: Medication Review Details: Current Medications Acetaminophen (Acetaminophen 325 Mg Tablet) 650 mg PO Q6H PRN PRN Reason: Mild/Mod Pain Or Temp >/= 101 Last Admin: 12/17/22 02:41 Dose: 650 mg Albuterol/Ipratropium (Ipratropium-Albuterol 3 Ml Neb) 3 ml INHALATION Q6H PRN PRN Reason: SHORTNESS OF BREATH Amlodipine Besylate (Amlodipine 5 Mg Tablet) 5 mg PO DAILY [facility] Last Admin: 12/16/22 23:05 Dose: Not Given Aspirin (Aspirin 81 Mg Ec Tablet) 81 mg PO DAILY [facility] Atorvastatin Calcium (Atorvastatin 40 Mg Tablet) 80 mg PO DAILY [facility] Enoxaparin Sodium (Enoxaparin 100 Mg/Ml Syringe) 90 mg 1 mg/kg (90 mg) SUBCUT Q12H [facility] Sodium Chloride (Sodium Chloride 0.9%) 1,000 mls @ 75 mls/hr IV .[id number] [facility] Last Admin: 12/16/22 22:13 Dose: 75 mls/hr Metoprolol Tartrate (Metoprolol Tartrate 25 Mg Tablet) 25 mg PO BID@0900,2100 [facility] Ondansetron HCl (Ondansetron 2 Mg/Ml Sdv 2 Ml) 4 mg IVP Q8H PRN PRN Reason: vomiting, or N/V if npo Vitals/I&O/Wt Last Vital Signs Temp 98.0 F 12/17/22 07:00 Pulse 78 12/17/22 07:00 Resp 16 12/17/22 03:00 BP 113/81 12/17/22 07:00 Pulse Ox 97 12/17/22 07:00 O2 Del Method 12/17/22 07:00 12/16/22 12/17/22 12/17/22 22:59 06:59 14:59 Intake Total 340 / 340 10 / 350 Balance 340 / 340 10 / 350 Weight last 48 hrs Weight 203 lb 7 oz Weight 203 lb 9 oz Weight 204 lb Physical Exam Narrative: GENERAL: The patient is alert and oriented times three. Not in any acute distress. HEENT: No significant pallor, icterus or lymphadenopathy.Oral cavity: There are no mucous membrane lesions. NECK: Trachea appears to be central. No masses noted. No JVD or thyromegaly appreciated. RESPIRATORY: Chest is symmetrical. No intercostals muscle retraction or any accessory muscle activation. There is no chest wall tenderness. Breath sounds are heard bilaterally. No rales or rhonchi heard. No evidence of any consolidation. BREASTS: Deferred. HEART: The heart sounds are normal. No S3 or S4. No significant murmurs. No pericardial rub ABDOMEN: No vessel pulsations or distention. No tenderness. No organomegaly appreciated. Bowel sounds are normally heard. : Deferred. RECTAL: Deferred. LYMPHATIC: No lymphadenopathy noted in the neck. EXTREMITIES: No edema or cyanosis. No clubbing. MUSCULOSKELETAL: No acute joint deformities or swelling SKIN: There are no significant rashes or ecchymosis NEUROPSYCHIATRIC: The patient is alert and oriented x3. Appears to be in a good mood. No tremors or rigidity noted. Data 12/17/22 04:30 12/17/22 04:30 Other Labs: Laboratory Last Values WBC 6.1 10^3/uL (4.0-10.0) 12/17/22 04:30 RBC 5.41 10^6/uL (4.1-5.3) H 12/17/22 04:30 Hgb 14.5 g/dL (11.5-15.3) 12/17/22 04:30 Hct 45.0 % (37.0-47.0) 12/17/22 04:30 MCV 83.2 fl (81-99) 12/17/22 04:30 MCH 26.8 pg (28.0-34.0) L 12/17/22 04:30 MCHC 32.2 g/dL (30.0-36.0) 12/17/22 04:30 RDW 12.8 % (12.1-15.1) 12/17/22 04:30 Plt Count 177 10^3/cmm (130-400) 12/17/22 04:30 MPV 10.4 fL (7.4-10.4) 12/17/22 04:30 Neut % (Auto) 38.2 % 12/17/22 04:30 Lymph % (Auto) 51.4 % 12/17/22 04:30 [place] % (Auto) 7.7 % 12/17/22 04:30 Eos % (Auto) 1.3 % 12/17/22 04:30 Baso % (Auto) 1.2 % 12/17/22 04:30 Neut # (Auto) 2.32 10^3/uL (1.8-7.7) 12/17/22 04:30 Lymph # (Auto) 3.1 10^3/uL (0.8-4.8) 12/17/22 04:30 [place] # (Auto) 0.5 10^3/uL (0.2-0.9) 12/17/22 04:30 Eos # (Auto) 0.1 10^3/uL (0.0-0.8) 12/17/22 04:30 Baso # (Auto) 0.1 10^3/uL (0.0-0.1) 12/17/22 04:30 Nucleated RBC % (auto) 0 % 12/17/22 04:30 Nucleated RBCs # 0.0 /100WBC 12/17/22 04:30 Sodium 140 mmol/L (136-145) 12/17/22 04:30 Potassium 3.9 mmol/L (3.5-5.1) 12/17/22 04:30 Chloride 106 mmol/L (98-107) 12/17/22 04:30 Carbon Dioxide 23 mmol/L (22-29) 12/17/22 04:30 Anion Gap 14.9 (5-19) 12/17/22 04:30 BUN 11 mg/dL (6-20) 12/17/22 04:30 Creatinine 0.8 mg/dL (0.5-0.9) 12/17/22 04:30 GFR Calculation 75.6 mL/min (90-130) L 12/17/22 04:30 Glucose 98 mg/dL (65-115) 12/17/22 04:30 Estimat Average Glucose 137 12/16/22 18:10 Hemoglobin A1c 6.4 % (4.0-6.0) H 12/16/22 18:10 Calculated Osmolality 289 mOsm/kg (285-295) 12/17/22 04:30 Calcium 8.5 mg/dL (8.5-10.5) 12/17/22 04:30 Magnesium 2.0 mg/dL (1.7-2.3) 12/17/22 04:30 Total Bilirubin 0.3 mg/dL (0.15-1.2) 12/17/22 04:30 AST 17 U/L (0-32) 12/17/22 04:30 ALT 26 U/L (0-33) 12/17/22 04:30 Alkaline Phosphatase 48 U/L (35-105) 12/17/22 04:30 Troponin T Baseline 6 ng/L (0-10) 12/16/22 18:30 Troponin T 120 Minute 6.00 ng/L (0-10) 12/16/22 20:50 Delta Troponin T 0 ABS# (0-10) 12/16/22 20:50 Troponin T Hi Sens 6Hr 6.00 ng/L (0-10) 12/17/22 00:15 Troponin T Hi Sens 6Hr Delta 0 ng/L (0-12) 12/17/22 00:15 NT-Pro-B Natriuret Pep 36 pg/mL (0-125) 12/16/22 18:30 Total Protein 6.3 g/dL (6.6-8.7) L 12/17/22 04:30 Albumin 3.7 g/dL (3.5-5.2) 12/17/22 04:30 Globulin 2.6 g/dL (1.3-4.6) 12/17/22 04:30 Triglycerides 222 mg/dL (0-150) H 12/16/22 18:10 Cholesterol 198 mg/dL (0-200) 12/16/22 18:10 LDL Cholesterol, Calc 120 mg/dL (50-129) 12/16/22 18:10 HDL Cholesterol 34 mg/dL (60-100) L 12/16/22 18:10 LDL/HDL Ratio 3.53 RATIO (0.00-3.22) H 12/16/22 18:10 Cholesterol/HDL Ratio 5.82 mg/dL (0.0-4.40) H 12/16/22 18:10 TSH 1.93 uIU/mL (0.27-4.20) 12/16/22 18:10 A&P Assessment and plan (1) Atherosclerotic heart disease of [place] coronary artery with unstable angina pectoris: Patient has EKG evidence of old anteroseptal and inferior wall myocardial infarction. Her symptoms are suggestive of unstable angina. There is no acute ischemic changes on the EKG. No evidence of myocardial injury. Patient is feeling okay. May continue on the current medications. (2) Benign essential HTN: The blood pressure is under control. We will continue on the current medications. (3) Nicotine dependence: Patient is strongly advised to quit smoking. (4) Dyslipidemia: Continue on the Lipitor. May repeat the blood profile profile in 2 months. Plan In view of the patient's presenting symptoms and the abnormal objective findings, in order to further evaluate her coronary status, a cardiac catheterization would be appropriate. The risks and benefits were discussed in detail with the patient and her . The risk of bleeding, hematoma, vascular injury, myocardial infarction, myocardial perforation, malignant cardiac arrhythmias ,CVA, renal failure and other concomitant complications were explained in detail. The patient understood this well and consented to proceed. We will go ahead and schedule the procedure as early as possible. Based on the angiogram findings, further recommendations will be made. Attestations Medical Necessity Statement*: Patient requires continued hospital stay for close monitoring and further management Coding Level of Care Code 52079 Diagnoses Atherosclerotic heart disease of [place] coronary artery with unstable angina pectoris I25.110 Benign essential HTN I10 Nicotine dependence F17.200 Dyslipidemia E78.5
--- NOTE | 2022-12-17 07:48 | P.HPUD_ITS ---
Surgery/Procedure H&P Update DATE OF PROCEDURE: December 17, 2022 DATE H&P PERFORMED: 12/16/22 H&P UPDATE INFORMATION: I have reviewed H&P completed within last 30 days, I have examined patient prior to procedure and No changes to prior documentation PREOP DIAGNOSIS: ASHD/ unstable angina PRIMARY INDICATION FOR PROCEDURE: Unstable angina/HTN/Dyslipidemia PLANNED PROCEDURE: [facility] with coronary angio and possible PCI PATIENT REASSESSED PRIOR TO SEDATION, WITH NO CHANGE NOTED: Yes PHYSICAL EXAM: alert and regular rate & rhythm AIRWAY EVAL/ANESTHESIA PLAN: normal airway, see other exam findings, ASA III, Monitored Anesthesia, Local Anesthesia, Risks, benefits & alternatives of sedation and/or procedure discussed and Patient agrees to continue as planned
--- NOTE | 2022-12-17 08:07 | XACV_ITS ---
Exam Room: [facility] Ht: 163 cm Wt: 92 kg BSA: 2.08 m2 Gender: Female : 1970 Any Known Allergies: Other Exam Priority: Routine Procedure(s): Procedure Description: Diagnostic procedure Procedure Description: Left Heart Catheterization Procedure Description: Left ventriculography Procedure Description: Coronary Angiography Clint ALBARADO; Diagnostic Cath Status: Urgent Diagnostic Findings * The left main is a medium caliber vessel with no significant stenotic lesions. * The left anterior descending artery is a medium caliber vessel which appears to taper off through his the LV apex. There appears to be extrinsic compression of the mid segment of the LAD causing 50% left anterior descending artery, causing 50% narrowing. The first diagonal branch appears to be almost equal caliber vessel with minimal diffuse intimal irregularities. No significant stenotic lesions were noted.. * The left circumflex artery is a medium caliber nondominant vessel is also was found to have mild diffuse intimal irregularities in the proximal segment with no significant disease noted lesions. * The right coronary artery is a medium to large caliber dominant vessel which was found to have no significant stenotic lesions. Conclusions 1. 51-year-old white female with a history of hypertension, dyslipidemia and family history of premature atherosclerotic heart diseas, is presenting with increasing episodes of chest pain and shortness of breath. EKG showing evidence of old anteroseptal and inferior wall MT. Echocardiogram revealed wall motion abnormalities in the basal septum and the basal inferolateral segments. In view of the patient's ongoing symptoms and abnormal objective findings, in order to further evaluate the coronary status, a cardiac catheterization was recommended. Patient underwent left heart catheterization with left and right coronary angiogram and LV angiogram today. The findings are as follows. 2. #1. Normal left main. #2. 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 Minimal intimal disease in the circumflex artery. #4 large dominant right coronary artery with no significant lesions. #5 markedly elevated LVEDP of 30 mmHg suggesting left-ventricular diastolic dysfunction. #6 Normal LV ejection fraction of 75%. Interventional RX Recommendation: medical therapy and/or counseling LV EDP: 30 mmHg Ventriculography Ejection Fraction: 75.0 % Left Ventriculography Findings: * The LV gram was performed in the HALEY projection. The LV cavity appears to beof normal size. LV ejection fraction was around 75%. The LVEDP was 30 millimeters of mercury at rest. EDP went up to 38 following the LV angiogram.. Pressures Phase:Rest AO : 133 / 99 ( 115 ) @ 9:57:00 AM 135 / 101 ( 118 ) @ 9:57:00 AM 161 / 92 ( 123 ) @ 10:09:00 AM 161 / 88 ( 119 ) @ 10:09:00 AM LV : 157 / 0 / 30 @ 10:08:00 AM 162 / 10 / 39 @ 10:09:00 AM 160 / 9 / 38 @ 10:09:00 AM Valves Phase:DefaultPhase AV : 0.0 @ 9:15:20 AM 0.0 @ 9:15:20 AM AV Mean Gradient: 0.0 @ 9:15:20 AM Clinical Evaluation EBL: 5mL-10mL Procedural Details Procedure Consent Obtained. Current Diagnosis : NSTEMI. Pre-Procedure Time Out. Identified patient by full name and date of as verbalized by the patient/guarantor. Does the consent match the physician's order: Yes. Accurate & Complete Informed Consent: Yes. Inpatient/Outpatient History & Physical on Chart: Yes. If H&P is completed, is and addenduem needed: No; If yes, is the addendum complete: N/A. Visualize and Verify Site with Patient/Guarantor: N/A. Relevant Radiology Images available: Yes. Pre-op teaching completed and patient verbalized understanding. The risks, benefits, and alternatives of sedation and/or procedure were discussed by physician. The patient agrees to continue. Procedure started. [facility] Clinical Fraility Score: 3: Managing Well. Print Journalist Indications: ACS > 24 hours. Chest Pain Symptom Assessment: Typical Angina Symptoms. Correct patient, site and procedure confirmed by cath team. Current diagnosis: Chest Pain. PERRLA. Strong, equal hand clinical rn liaison bilaterally. Lungs clear x 5 lobes. IV Site on Arrival: 18 gauge in the left anticubital. IV Fluids: 0.9% NaCl at KVO. 0 mL infused prior to laborer ammunition assembly. Oxygen started at 2liters/min via nasal canula. right groin was prepped with chloroprep then draped in the usual sterile fashion. right radial was prepped with chloroprep then draped in the usual sterile fashion. Physician notified. Baseline sample Acquired. HR: 0 BPM. Physician arrived. Physician scrubbed in. Immediate Pre-Procedure Time Out. Correct Patient: Yes; Correct Procedure: Yes; Correct Site: Yes; Correct Patient Position: Yes; Correct Supplies: Yes; Dried Flammable Prep: Yes; Blood Products Available: N/A;. Lidocaine 1% infiltrated to the right radial. Arterial access obtained. A 5 gibraltarian Derian catheter in over wire. Multiple views taken of left coronary artery. Catheter removed over the exchange wire. A 5 gibraltarian JR4 catheter in over wire. Multiple views taken of right coronary artery. Catheter removed over the exchange wire. A 5 gibraltarian Angled Pig catheter in over wire. EDP Sample taken: LV 157/-1,30; HR: 79 BPM; SpO2: 100%. LV gram performed in HALEY @ 10 mL/second for a total of 30 mL. EDP Sample taken: LV 162/10,39; HR: 79 BPM; SpO2: 100%. Pullback taken: LV 160/9,38; AO 161/92(123); Mean: 0mmHg, Peak to Peak: 0mmHg, SEP: 24sec/min; HR: 80 BPM; SpO2: 100%. A TR Band was successful obtaining hemostatsis at the Right Radial artery insertion site. Physician scrubbed out. Post Procedure: Pulses reassessed and unchanged. PERRLA. Strong, equal hand clinical rn liaison bilaterally. No VTE prophylaxis required. Medication's Wasted: Lidocaine 1% = 1 mL. Medication's Wasted: Nitro = 49.8 mg. Medication's Wasted: Heparin = 1000 units. Total IV fluids: 250 mL. Complications: None. Post-op diagnosis: High EDP, Myocardial Bridge. Estimated blood loss: 5mL-10mL. Responsiveness - Normal response to verbal stimuli; alert and oriented, PERRLA. Airway - Unaffected, no intervention required; spontaneous ventilation. Circulation: W/N/L, pulses unchanged. Nausea/Vomiting: No. Patient transferred by wheelchair to CPRU. Vital chart was stopped. Access Site Site: Right Radial artery Sheath Size: 6 Fr Hemostasis Method: TR Band Hemostasis Success: Successful Procedure Medications Start: 8:41 AM Stop: 8:41 AM Medication: Fentanyl Amount: 50 mcg Route: I.V. Start: 8:45 AM Stop: 8:45 AM Medication: Versed Amount: 1 mg Route: I.V. Start: 8:48 AM Stop: 8:48 AM Medication: Versed Amount: 1 mg Route: I.V. Start: 8:52 AM Stop: 8:52 AM Medication: 0.9% Saline Amount: 250 ml Route: I.V. bolus Start: 8:54 AM Stop: 8:54 AM Medication: Nitrogylcerin Amount: 200 mcg Route: I.A. Start: 8:54 AM Stop: 8:54 AM Medication: Verapamil Amount: 5 mg Route: I.A. Start: 8:57 AM Stop: 8:57 AM Medication: Heparin Amount: 5000 units Route: I.V. Start: 9:05 AM Stop: 9:05 AM Medication: Fentanyl Amount: 50 mcg Route: I.V. I, the attending physician, have reviewed and verified all procedure medications. Yes, all medications given per verbal order History/Risk Factors Hypertension: No Dyslipidemia: No Peripheral Arterial Disease (PAD): No Myocardial Infarction (MT): No Obesity: No Renal Disease: No Tobacco Use: Never Prior Interventions PCI: No CABG: No Valve Surgery: No Report Signatures Finalized by Dr Yoana Jaramillo MD [facility] on 12/17/2022 11:01 AM
--- NOTE | 2022-12-17 08:35 | PC.NURSE ---
Patient in care of Vehicle Leasing And Rental Manager team at 0834.
--- NOTE | 2022-12-17 09:20 | SUR.EXTENDED ---
Recieved the patient back from the cath lab nurse via wheelchair S/P diagnostic cath. Patient ambulated to the bed without difficulty. Alert and oriented x 3. TR band with slight bleeding noted, 5ml of air added with hemostasis achieved. No hematoma present. court monitor placed and vital signs obtained. Will transfer to ICU-8 at completion of recovery phase.
[2022-12-17] MEDS: ondansetron 2 mg/ML SDV 2 mL 4 MG IVP (09:41)
--- NOTE | 2022-12-17 09:42 | USCV_ITS ---
Marcella Whitley Age: 51 Gender: F : 1970 Exam Date: 12/17/2022 10:16 Ordering Phys: Damir French MD Technologist: CT Exam Location: [facility] [place]_ Indication: SWELLING HISTORY: Lower extremity swelling. PROCEDURES: Venous duplex imaging was performed in bilateral lower extremities. The following venous structures were evaluated: common femoral vein, profunda vein, proximal portion of the greater saphenous vein, superficial femoral vein, and the popliteal vein. In addition, the posterior tibial and peroneal trunk were evaluated. Serial compression, augmentation maneuvers, and spectral Doppler flow evaluation were performed. FINDINGS: Normal 2-D Doppler and augmentation and compressibility throughout the lower extremity venous structures. Additional imaging through the proximal calf veins also reveals no thrombus. Limited evaluation of the greater saphenous vein is patent with no thrombus. CONCLUSIONS No DVT bilateral lower extremities. Dr. Naheed Lofton DO (Electronically Signed) Final Date: 17 December 2022 15:27 S
--- NOTE | 2022-12-17 09:46 | PM.DCS ---
Discharge Providers Date of Admission: 12/16/22 21:29 Date of Discharge: December 17, 2022 Attending Provider at Admission: David Galdamez MD Attending Provider at Discharge: Damir French MD Diagnoses at Discharge Discharge Diagnosis (1) Atherosclerotic heart disease of [place] coronary artery with unstable angina pectoris: Status: Acute (2) Benign essential HTN: Status: Acute (3) Nicotine dependence: Status: Acute (4) Dyslipidemia: Status: Acute Reason for Visit Reason for Visit: Dr Jaramillo sent cardiac Hospital Course Hospital Course This is a 51-year female with a past medical history of hypertension, dyslipidemia, smoker, who presents to [facility] due to chest pain Was admitted to [facility] for chest pain, no significant delta troponin, echocardiogram did show hypokinetic basal inferior lateral segment, underwent coronary angiogram, no obstructive CAD, but had high LVEDP, a myocardial bridge medically managed, follow-up with cardiology as outpatient Hypertension, discharged on metoprolol 25 mg twice daily, follow-up with primary care provider for blood pressure check For her history of DVTs, currently not on anticoagulation due to intolerance, venous ultrasound negative for DVT, CT angiogram negative for pulm embolism Her CT angiogram did not show emphysema, she does complain shortness of breath, discharged on albuterol, Symbicort, follow-up with pulmonary She has prediabetes, follow-up with primary care about discussion and intervention Advised to quit smoking, discharged on nicotine patches For insomnia, she says that temazepam helped in the hospital, discharged her on short supply of temazepam, do not drink alcohol or drive or operate heavy machinery while taking temazepam Physical Exam Const: COMMON NORMALS: no acute distress and patient oriented x3 Resp: COMMON NORMALS: normal respiratory effort, No retractions, No use of accessory muscles and clear to auscultation bilaterally AUSCULTATION: clear to auscultation bilaterally Cardio: COMMON NORMALS: regular rate, regular rhythm, S1 normal heart sound present and S2 normal heart sound present RATE: regular rate RHYTHM: regular rhythm HEART SOUNDS: S1 normal heart sound present and S2 normal heart sound present GI: COMMON NORMALS: Normal to inspection, nondistended, normoactive bowel sounds present and non-tender Extremity: COMMON NORMALS: no pedal edema Neuro: COMMON NORMALS: patient oriented x3 Psych: COMMON NORMALS: mental status grossly normal Discharge Data Studies Completed and Pending Completed Studies During Hospitalization Category Date Time Status CXRP [XR chest 1V portable [id number]] Stat Exams 12/16/22 18:21 Completed CV. echo complete* [id number] Routine Ultrasound 12/16/22 19:39 Completed Pending at discharge Category Date Time Status VIRTUAL RECRUITER request for service Routine Exams 12/17/22 08:07 Taken D Dimer Stat Lab 12/17/22 09:42 [place] [id number] Stat Ultrasound 12/17/22 09:42 Ordered Radiology Impressions Chest X-Ray 12/16/22 18:21 IMPRESSION: No acute findings. Laboratory Results WBC 6.1 10^3/uL (4.0-10.0) 12/17/22 04:30 RBC 5.41 10^6/uL (4.1-5.3) H 12/17/22 04:30 Hgb 14.5 g/dL (11.5-15.3) 12/17/22 04:30 Hct 45.0 % (37.0-47.0) 12/17/22 04:30 MCV 83.2 fl (81-99) 12/17/22 04:30 MCH 26.8 pg (28.0-34.0) L 12/17/22 04:30 MCHC 32.2 g/dL (30.0-36.0) 12/17/22 04:30 RDW 12.8 % (12.1-15.1) 12/17/22 04:30 Plt Count 177 10^3/cmm (130-400) 12/17/22 04:30 MPV 10.4 fL (7.4-10.4) 12/17/22 04:30 Neut % (Auto) 38.2 % 12/17/22 04:30 Lymph % (Auto) 51.4 % 12/17/22 04:30 Gonzales % (Auto) 7.7 % 12/17/22 04:30 Eos % (Auto) 1.3 % 12/17/22 04:30 Baso % (Auto) 1.2 % 12/17/22 04:30 Neut # (Auto) 2.32 10^3/uL (1.8-7.7) 12/17/22 04:30 Lymph # (Auto) 3.1 10^3/uL (0.8-4.8) 12/17/22 04:30 Gonzales # (Auto) 0.5 10^3/uL (0.2-0.9) 12/17/22 04:30 Eos # (Auto) 0.1 10^3/uL (0.0-0.8) 12/17/22 04:30 Baso # (Auto) 0.1 10^3/uL (0.0-0.1) 12/17/22 04:30 Nucleated RBC % (auto) 0 % 12/17/22 04:30 Nucleated RBCs # 0.0 /100WBC 12/17/22 04:30 Sodium 140 mmol/L (136-145) 12/17/22 04:30 Potassium 3.9 mmol/L (3.5-5.1) 12/17/22 04:30 Chloride 106 mmol/L (98-107) 12/17/22 04:30 Carbon Dioxide 23 mmol/L (22-29) 12/17/22 04:30 Anion Gap 14.9 (5-19) 12/17/22 04:30 BUN 11 mg/dL (6-20) 12/17/22 04:30 Creatinine 0.8 mg/dL (0.5-0.9) 12/17/22 04:30 GFR Calculation 75.6 mL/min (90-130) L 12/17/22 04:30 Glucose 98 mg/dL (65-115) 12/17/22 04:30 Estimat Average Glucose 137 12/16/22 18:10 Hemoglobin A1c 6.4 % (4.0-6.0) H 12/16/22 18:10 Calculated Osmolality 289 mOsm/kg (285-295) 12/17/22 04:30 Calcium 8.5 mg/dL (8.5-10.5) 12/17/22 04:30 Magnesium 2.0 mg/dL (1.7-2.3) 12/17/22 04:30 Total Bilirubin 0.3 mg/dL (0.15-1.2) 12/17/22 04:30 AST 17 U/L (0-32) 12/17/22 04:30 ALT 26 U/L (0-33) 12/17/22 04:30 Alkaline Phosphatase 48 U/L (35-105) 12/17/22 04:30 Troponin T Baseline 6 ng/L (0-10) 12/16/22 18:30 Troponin T 120 Minute 6.00 ng/L (0-10) 12/16/22 20:50 Delta Troponin T 0 ABS# (0-10) 12/16/22 20:50 Troponin T Hi Sens 6Hr 6.00 ng/L (0-10) 12/17/22 00:15 Troponin T Hi Sens 6Hr Delta 0 ng/L (0-12) 12/17/22 00:15 NT-Pro-B Natriuret Pep 36 pg/mL (0-125) 12/16/22 18:30 Total Protein 6.3 g/dL (6.6-8.7) L 12/17/22 04:30 Albumin 3.7 g/dL (3.5-5.2) 12/17/22 04:30 Globulin 2.6 g/dL (1.3-4.6) 12/17/22 04:30 Triglycerides 222 mg/dL (0-150) H 12/16/22 18:10 Cholesterol 198 mg/dL (0-200) 12/16/22 18:10 LDL Cholesterol, Calc 120 mg/dL (50-129) 12/16/22 18:10 HDL Cholesterol 34 mg/dL (60-100) L 12/16/22 18:10 LDL/HDL Ratio 3.53 RATIO (0.00-3.22) H 12/16/22 18:10 Cholesterol/HDL Ratio 5.82 mg/dL (0.0-4.40) H 12/16/22 18:10 TSH 1.93 uIU/mL (0.27-4.20) 12/16/22 18:10 Vitals Last Vital Signs Temp 98.0 F 12/17/22 07:00 Pulse 78 12/17/22 08:00 Resp 16 12/17/22 03:00 BP 117/61 12/17/22 08:00 Pulse Ox 95 12/17/22 08:00 O2 Del Method 12/17/22 08:00 Discharge Plan Discharge Patient Disposition: Home Condition: Stable Prescriptions: New nicotine 21 mg/24 hr Patch 24 Hour 1 patch transdermal DAILY 28 Days Qty: 28 0RF atorvastatin 40 mg Tablet 40 mg PO DAILY 30 Days Qty: 30 0RF metoprolol tartrate 25 mg Tablet 25 mg PO BID@0900,2100 30 Days Qty: 60 0RF amlodipine 10 mg Tablet 10 mg PO DAILY 30 Days Qty: 30 0RF Continued albuterol sulfate 90 mcg/actuation HFA aerosol inhaler 2 puff inhalation Q6H PRN (Reason: shortness of breath or wheezing) Qty: 8.5 0RF budesonide-formoterol [Symbicort] 80-4.5 mcg/actuation HFA aerosol inhaler 2 puff inhalation BID cyclobenzaprine 10 mg tablet 10 mg PO TID aspirin 81 mg tablet,delayed release (DR/EC) 81 mg PO DAILY Qty: 30 0RF Discharge Orders: Discharge Order (Routine); Ordered 12/18/22 Ordered By: Damir French Referrals: Yoana Jaramillo MD [Physician] - Rita Nunez FNP [Nurse Practitioner] - Jose Waddell MD [Physician] - 12/23/22 2:30 pm Discharge Diet: Cardiac Discharge Activity: Resume usual activity Patient Instructions: Metoprolol (By mouth), Temazepam (By mouth) (Restoril, Strazepam), Nicotine (Absorbed through the skin), Amlodipine (By mouth), Atorvastatin (By mouth), How to Stop Smoking (DC), Cigarette Smoking and Your Health (GEN), Chronic Hypertension (DC), Prediabetes (GEN), Chest Pain Stoplight, Opioid Safety, Post Angiogram Home Care Instructions Discharge Attestations Time Spent in Discharge Care*: greater than 30 min Quality Metrics Clinical Quality Measures [ No reported AMI, CVA or VTE this stay] Coding Level of Care Code 84432 Total time (in minutes) for Discharge: 40 Diagnoses Atherosclerotic heart disease of [place] coronary artery with unstable angina pectoris I25.110 Benign essential HTN I10 Nicotine dependence F17.200 Dyslipidemia E78.5
--- NOTE | 2022-12-17 09:59 | SUR.EXTENDED ---
Dr. French at bedside.
--- NOTE | 2022-12-17 10:24 | PC.NURSE ---
Patient returned to ICU 8 with family at bedside at approximately 1015. Right TR band in place. No bleeding noted, pulses present. Patient reports no pain or discomfort at this time.
[2022-12-17] MEDS: sodium chloride 0.9% 1,000 ML 75 ML IV ×2 (11:02→20:02)
[2022-12-17] MEDS: atorvastatin 40 mg Tablet 80 MG PO (11:04)
[2022-12-17] MEDS: aspirin 81 mg EC Tablet PO (11:05)
[2022-12-17] MEDS: nicotine 21 mg Patch 1 PATCH TRANSDERMA (11:29)
--- NOTE | 2022-12-17 11:44 | P.PN_ITS ---
Subjective Subjective: patient was seen after her cardiac cath, no stents placed, she tells me that she has had a history of dvt in the past, 5 dvt, she has been on/off anticoag, she is supposed to be on eliquis but she stopped taking it when it made her head feel strange, so she was told to just take a baby aspirin, she does report intermitted right calf and foot pain, she denies a history of pulmonary embolism, Vitals/I&O/Wt Last Vital Signs Temp 98.0 F 12/17/22 07:00 Pulse 78 12/17/22 11:34 Resp 18 12/17/22 11:34 BP 133/88 12/17/22 11:34 Pulse Ox 97 12/17/22 11:34 O2 Del Method 12/17/22 11:34 12/16/22 12/17/22 12/17/22 22:59 06:59 14:59 Intake Total 340 / 340 10 / 350 961.25 / 961.25 Balance 340 / 340 10 / 350 961.25 / 961.25 Weight last 48 hrs Weight 92.278 kg Weight 92.334 kg Weight 92.533 kg Physical Exam Const: COMMON NORMALS: no acute distress and patient oriented x3 Resp: COMMON NORMALS: normal respiratory effort, No retractions, No use of accessory muscles and clear to auscultation bilaterally AUSCULTATION: clear t o auscultation bilaterally Cardio: COMMON NORMALS: regular rate, regular rhythm, S1 normal heart sound present and S2 normal heart sound present RATE: regular rate RHYTHM: regular rhythm HEART SOUNDS: S1 normal heart sound present and S2 normal heart sound present GI: COMMON NORMALS: Normal to inspection, nondistended, normoactive bowel sounds present and non-tender Extremity: COMMON NORMALS: no pedal edema Neuro: COMMON NORMALS: patient oriented x3 Psych: COMMON NORMALS: mental status grossly normal Data 12/17/22 04:30 12/17/22 04:30 A&P Assessment and plan (1) Unstable angina: (2) Nicotine dependence: (3) Anxiety: Plan #Unstable Angina #Active smoker, anxious appearing #Hx of COPD #Current everyday smoker #Allergic to eliquis Currently chest pain-free Hypertensive, appearing anxious at this point - coutinue aspirin, , atorvastatin, - duoneb q6h PRN - Check HBA1c indicate prediabetes, lipid profile - Nicotine patch offered - s/p cardiac cath, no stents placed Patient is trying to quit smoking She has tried Chantix in the past Will request nicotine patch -venous us ordered and d dimer ordered, will order ctangio tommorow morning after iv hydration, as patient has ckd and has received contrast with her angiogram -continue metoprolol Full Code DVT PPX: currently on hold as patient has had a cardiac cath, will resume based on cardiology reccomendation and venous us Attestations Medical Necessity Statement*: patient requires hospitalization for concerns for dvt and pe Diagnoses Unstable angina I20.0 Nicotine dependence F17.200 Anxiety F41.9
--- NOTE | 2022-12-17 14:15 | PC.NURSE ---
TR band removed, no complications, dressing applied. No bleeding at this time. Pulses present throughout duration of band and currently.
--- NOTE | 2022-12-17 14:34 | PC.NURSE ---
Patient very restless. Has stated multiple times that she wants to go home tonight to take care of grand kids. Patient requested this nurse contact hospitalist, Dr. French asks patient to remain until morning at least. Patient agrees with this at this time.
[2022-12-17] MEDS: amlodipine 5 mg Tablet PO (19:07)
--- NOTE | 2022-12-17 19:08 | PC.NURSE ---
Dr. Jaramillo on unit, assessed patient and ordered 5mg Norvasc to be given NOW. See MAR for administration.
[2022-12-17] MEDS: temazepam 15 mg Capsule PO (20:02)
[2022-12-17] MEDS: metoprolol tartrate 25 mg Tablet PO (20:02)
[2022-12-18] VITALS (15 sets, daily range): BP systolic 109–163; BP diastolic 46–98; PULSE 62–82; RESP 14–23; TEMP 36.4–36.9; O2SAT 94–99
[2022-12-18] MEDS: acetaminophen 325 mg Tablet 650 MG PO (02:25)
[2022-12-18 04:20] LABS: Basophils # 0.1 10^3/uL (0.0-0.1); Basophils % 1.1 %; Eosinophils # 0.1 10^3/uL (0.0-0.8); Eosinophils % 1.1 %; Hematocrit 46.5 % (37.0-47.0); Hemoglobin 14.8 g/dL (11.5-15.3); Lymphocytes # 2.2 10^3/uL (0.8-4.8); Lymphocytes % 41.4 %; Mean Corpuscular HGB Conc 31.8 g/dL (30.0-36.0); Mean Corpuscular Hemoglobin 27.1 pg (28.0-34.0); Mean Platelet Volume 10.5 fL (7.4-10.4); Monocytes # 0.5 10^3/uL (0.2-0.9); Neutrophils # 2.47 10^3/uL (1.8-7.7); Neutrophils % 47.2 %; Nucleated Red Blood Cells % 0 %; Platelet Count 179 10^3/cmm (130-400); Red Blood Count 5.47 10^6/uL (4.1-5.3); Red Cell Distribution Width 12.6 % (12.1-15.1); White Blood Count 5.2 10^3/uL (4.0-10.0)
[2022-12-18 04:42] LABS: Anion Gap 12.3 (5-19); Blood Urea Nitrogen 11 mg/dL (6-20); Calcium 8.8 mg/dL (8.5-10.5); Carbon Dioxide 26 mmol/L (22-29); Chloride 107 mmol/L (98-107); Glucose 115 mg/dL (65-115); Magnesium 2.2 mg/dL (1.7-2.3); Osmolality Calculated 292 mOsm/kg (285-295); Potassium 4.3 mmol/L (3.5-5.1); Sodium 141 mmol/L (136-145)
[2022-12-18] MEDS: sodium chloride 0.9% 1,000 ML 75 ML IV (05:30)
--- NOTE | 2022-12-18 07:33 | CT_ITS ---
WS: [id number] CT CHEST ANGIOGRAPHY WITH REFORMATS HISTORY: chest pain TECHNIQUE: Contiguous axial images are obtained through the chest during arterial injection of intrav enous contrast. Images are reconstructed to evaluate the pulmonary arteries. MIP imaging also reviewe d. All CT scans at [facility] use at least one of these dose optimization techniques: automat ed exposure control; mA and/or kV adjustment per patient size (includes targeted exams where dose is matched to clinical indication); or iterative reconstruction. CONTRAST: Omnipaque 350; 100 mL IV. DLP: 389.13 mGy.cm COMPARISON: None available. Very good opacification of the pulmonary arteries. Normal size pulmonary artery. Normal thoracic aort a. No mediastinal or hilar adenopathy. No RIGHT heart strain. Mild central lobular emphysema. No mass or pneumonia. Micronodule LEFT apex. No pericardial or pleural effusion. Normal appearance of the thyroid. No axillary adenopathy. Negative chest wall. Prior cholecystectomy. Small hiatal hernia. Hepatic steatosis. The entire liver is not visualized but there is hepatic enlargement and steatosis. No adrenal mass. CT/CT angio chest PE protcl [id number] IMPRESSION: 1. No pulmonary embolism. 2. Normal size aorta. 3. No pneumonia. 4. Chronic emphysema. 5. No adenopathy.
[2022-12-18] MEDS: iohexol 350 mg/mL 500 mL Btl (per mL) IV (08:09)
[2022-12-18] MEDS: aspirin 81 mg EC Tablet PO (09:03)
[2022-12-18] MEDS: amlodipine 10 mg Tablet PO (09:03)
[2022-12-18] MEDS: metoprolol tartrate 25 mg Tablet PO (09:03)
[2022-12-18] MEDS: atorvastatin 40 mg Tablet 80 MG PO (09:04)
[2022-12-18] MEDS: nicotine 21 mg Patch 1 PATCH TRANSDERMA (09:05)
--- NOTE | 2022-12-18 09:52 | PM.PN ---
Subjective Subjective: The patient is feeling okay. She has not had any chest pain since the hospital admission. Her blood pressure seems to be under control. She had the venous duplex of the lower extremities yesterday which did not reveal any evidence of DVT. Her chest CTA did not show any evidence of pulmonary embolism. Medications: Medication Review Details: Current Medications Acetaminophen (Acetaminophen 325 Mg Tablet) 650 mg PO Q6H PRN PRN Reason: Mild/Mod Pain Or Temp >/= 101 Last Admin: 12/18/22 02:25 Dose: 650 mg Al Hydrox/Mg Hydrox/Simethicone (Agqq-Xig-Bomjbsctn-Nestor 30 Ml Udc) 30 ml PO Q15M PRN PRN Reason: INDIGESTION Albuterol/Ipratropium (Ipratropium-Albuterol 3 Ml Neb) 3 ml INHALATION Q6H PRN PRN Reason: SHORTNESS OF BREATH Amlodipine Besylate (Amlodipine 10 Mg Tablet) 10 mg PO DAILY [facility] Last Admin: 12/18/22 09:03 Dose: 10 mg Aspirin (Aspirin 81 Mg Ec Tablet) 81 mg PO DAILY [facility] Last Admin: 12/18/22 09:03 Dose: 81 mg Atorvastatin Calcium (Atorvastatin 40 Mg Tablet) 80 mg PO DAILY [facility] Last Admin: 12/18/22 09:04 Dose: 80 mg Atropine Sulfate (Atropine 1 Mg/Ml Sdv 1 Ml) 0.5 mg IVP PRN PRN PRN Reason: Symptomatic bradycardia Fentanyl (Fentanyl 50 Mcg/Ml Inj 2ml) 50 mcg IVP PRN PRN PRN Reason: Prior to sheath removal Sodium Chloride (Sodium Chloride 0.9%) 1,000 mls @ 100 mls/hr IV .Q10H [facility] Last Admin: 12/18/22 05:30 Dose: 75 mls/hr Magnesium Hydroxide (Magnesium Hydroxide 30 Ml Udc) 30 ml PO DAILY PRN PRN Reason: CONSTIPATION Metoprolol Tartrate (Metoprolol Tartrate 25 Mg Tablet) 25 mg PO BID@0900,2100 [facility] Last Admin: 12/18/22 09:03 Dose: 25 mg Naloxone HCl (Naloxone 0.4 Mg/Ml Sdv) 0.1 mg IVP Q2M PRN PRN Reason: RESPIRATORY RATE < 8/MIN Nicotine (Nicotine 21 Mg Patch) 1 patch TRANSDERMA DAILY [facility] Last Admin: 12/18/22 09:05 Dose: 1 patch Nitroglycerin (Nitroglycerin 0.4 Mg Sublingual Tablet) 0.4 mg SUBLINGUAL Q5M PRN PRN Reason: CHEST PAIN Ondansetron HCl (Ondansetron 2 Mg/Ml Sdv 2 Ml) 4 mg IVP Q8H PRN PRN Reason: vomiting, or N/V if npo Last Admin: 12/17/22 09:41 Dose: 4 mg Temazepam (Temazepam 15 Mg Capsule) 15 mg PO BEDTIME PRN PRN Reason: INSOMNIA Last Admin: 12/17/22 20:02 Dose: 15 mg Vitals/I&O/Wt Last Vital Signs Temp 97.8 F 12/18/22 04:00 Pulse 79 12/18/22 08:56 Resp 15 12/18/22 08:56 BP 136/84 12/18/22 08:00 Pulse Ox 98 12/18/22 08:56 O2 Del Method 12/18/22 08:56 12/17/22 12/18/22 12/18/22 22:59 06:59 14:59 Intake Total 1015 / 2456.25 1160 / 3616.25 Output Total 650 / 650 Balance 365 / 1806.25 1160 / 2966.25 Weight last 48 hrs Weight 203 lb 7 oz Weight 203 lb 9 oz Weight 204 lb Physical Exam Narrative: GENERAL: The patient is alert and oriented times three. Not in any acute distress. [] HEENT: No significant pallor, icterus or lymphadenopathy.Oral cavity: There are no mucous membrane lesions. NECK: Trachea appears to be central. No masses noted. No JVD or thyromegaly appreciated. RESPIRATORY: Chest is symmetrical. No intercostals muscle retraction or any accessory muscle activation. There is no chest wall tenderness. Breath sounds are heard bilaterally. No rales or rhonchi heard. No evidence of any consolidation. [] BREASTS: Deferred. [] HEART: The heart sounds are normal. No S3 or S4. No significant murmurs. No pericardial rub ABDOMEN: No vessel pulsations or distention. No tenderness. No organomegaly appreciated. Bowel sounds are normally heard. : Deferred. RECTAL: Deferred. LYMPHATIC: No lymphadenopathy noted in the neck. EXTREMITIES: The right radial arterial puncture site has no hematoma or bleeding. MUSCULOSKELETAL: No acute joint deformities or swelling SKIN: There are no significant rashes or ecchymosis NEUROPSYCHIATRIC: The patient is alert and oriented x3. Appears to be in a good mood. No tremors or rigidity noted. Data 12/18/22 03:41 12/18/22 03:41 Other Labs: Laboratory Last Values WBC 5.2 10^3/uL (4.0-10.0) 12/18/22 03:41 RBC 5.47 10^6/uL (4.1-5.3) H 12/18/22 03:41 Hgb 14.8 g/dL (11.5-15.3) 12/18/22 03:41 Hct 46.5 % (37.0-47.0) 12/18/22 03:41 MCV 85.0 fl (81-99) 12/18/22 03:41 MCH 27.1 pg (28.0-34.0) L 12/18/22 03:41 MCHC 31.8 g/dL (30.0-36.0) 12/18/22 03:41 RDW 12.6 % (12.1-15.1) 12/18/22 03:41 Plt Count 179 10^3/cmm (130-400) 12/18/22 03:41 MPV 10.5 fL (7.4-10.4) H 12/18/22 03:41 Neut % (Auto) 47.2 % 12/18/22 03:41 Lymph % (Auto) 41.4 % 12/18/22 03:41 [place] % (Auto) 9.0 % 12/18/22 03:41 Eos % (Auto) 1.1 % 12/18/22 03:41 Baso % (Auto) 1.1 % 12/18/22 03:41 Neut # (Auto) 2.47 10^3/uL (1.8-7.7) 12/18/22 03:41 Lymph # (Auto) 2.2 10^3/uL (0.8-4.8) 12/18/22 03:41 [place] # (Auto) 0.5 10^3/uL (0.2-0.9) 12/18/22 03:41 Eos # (Auto) 0.1 10^3/uL (0.0-0.8) 12/18/22 03:41 Baso # (Auto) 0.1 10^3/uL (0.0-0.1) 12/18/22 03:41 Nucleated RBC % (auto) 0 % 12/18/22 03:41 Nucleated RBCs # 0.0 /100WBC 12/18/22 03:41 D-Dimer 0.50 ug/mIFEU (0-0.59) 12/17/22 04:30 Sodium 141 mmol/L (136-145) 12/18/22 03:41 Potassium 4.3 mmol/L (3.5-5.1) 12/18/22 03:41 Chloride 107 mmol/L (98-107) 12/18/22 03:41 Carbon Dioxide 26 mmol/L (22-29) 12/18/22 03:41 Anion Gap 12.3 (5-19) 12/18/22 03:41 BUN 11 mg/dL (6-20) 12/18/22 03:41 Creatinine 0.9 mg/dL (0.5-0.9) 12/18/22 03:41 GFR Calculation 66.0 mL/min (90-130) L 12/18/22 03:41 Glucose 115 mg/dL (65-115) 12/18/22 03:41 Estimat Average Glucose 137 12/16/22 18:10 Hemoglobin A1c 6.4 % (4.0-6.0) H 12/16/22 18:10 Calculated Osmolality 292 mOsm/kg (285-295) 12/18/22 03:41 Calcium 8.8 mg/dL (8.5-10.5) 12/18/22 03:41 Magnesium 2.2 mg/dL (1.7-2.3) 12/18/22 03:41 Total Bilirubin 0.3 mg/dL (0.15-1.2) 12/17/22 04:30 AST 17 U/L (0-32) 12/17/22 04:30 ALT 26 U/L (0-33) 12/17/22 04:30 Alkaline Phosphatase 48 U/L (35-105) 12/17/22 04:30 Troponin T Baseline 6 ng/L (0-10) 12/16/22 18:30 Troponin T 120 Minute 6.00 ng/L (0-10) 12/16/22 20:50 Delta Troponin T 0 ABS# (0-10) 12/16/22 20:50 Troponin T Hi Sens 6Hr 6.00 ng/L (0-10) 12/17/22 00:15 Troponin T Hi Sens 6Hr Delta 0 ng/L (0-12) 12/17/22 00:15 NT-Pro-B Natriuret Pep 36 pg/mL (0-125) 12/16/22 18:30 Total Protein 6.3 g/dL (6.6-8.7) L 12/17/22 04:30 Albumin 3.7 g/dL (3.5-5.2) 12/17/22 04:30 Globulin 2.6 g/dL (1.3-4.6) 12/17/22 04:30 Triglycerides 222 mg/dL (0-150) H 12/16/22 18:10 Cholesterol 198 mg/dL (0-200) 12/16/22 18:10 LDL Cholesterol, Calc 120 mg/dL (50-129) 12/16/22 18:10 HDL Cholesterol 34 mg/dL (60-100) L 12/16/22 18:10 LDL/HDL Ratio 3.53 RATIO (0.00-3.22) H 12/16/22 18:10 Cholesterol/HDL Ratio 5.82 mg/dL (0.0-4.40) H 12/16/22 18:10 TSH 1.93 uIU/mL (0.27-4.20) 12/16/22 18:10 A&P Assessment and plan (1) Atherosclerotic heart disease of [place] coronary artery with unstable angina pectoris: For the cardiac catheterization yesterday. She was found to have mild CAD. 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 Markedly elevated LVEDP suggesting left-ventricular diastolic dysfunction. (2) Benign essential HTN: The blood pressure is under control. We will continue on the current medications. (3) Nicotine dependence: Patient is strongly advised to quit smoking. She seems to be motivated. (4) Dyslipidemia: Continue on the Lipitor. May repeat the blood profile profile in 2 months. Plan If the patient continues remain stable, may be discharged home today. Please make an appointment to be seen in the [facility] in 1 to 2 weeks by the nurse practitioner. I may see him in the office as scheduled Attestations Medical Necessity Statement*: Possible discharge home today Coding Level of Care Code 54138 Diagnoses Atherosclerotic heart disease of [place] coronary artery with unstable angina pectoris I25.110 Benign essential HTN I10 Nicotine dependence F17.200 Dyslipidemia E78.5
--- NOTE | 2022-12-18 10:36 | PC.NURSE ---
All charting on this patient by Anel Eller, Student, reviewed and verified by this nurse.
--- NOTE | 2022-12-18 11:31 | PC.NURSE ---
Extensive education provided to patient at bedside regarding follow up care, S/S of heart attack, cardiac stoplight, home medications, smoking cessation, emphysema, and diet/ lifestyle changes, as well as Information Services Assistant after TR band education. Written information provided to patient as well. Patient had no questions at time of discharge. All belongings with patient at discharge. IV removed before education provided. Patient brought by wheelchair to personal vehicle with S/O as primary cdl b driver.
== END 2022-12-18 11:27 | disposition home or self-care (01) ==
LOC: ER 19:31 → ICU 21:06
PROVIDERS: Family Medicine; Internal Medicine Cardiovascular Disease; Admitting Provider Internal Medicine; Emergency Provider Emergency Medicine; Visit Provider Family Medicine
DX: I25.110 Atherosclerotic heart disease of native coronary artery with unstable angina pectoris (principal); E78.5 Hyperlipidemia, unspecified; I10 Essential (primary) hypertension; J43.9 Emphysema, unspecified; R73.03 Prediabetes; F41.9 Anxiety disorder, unspecified; I45.10 Unspecified right bundle-branch block; F17.200 Nicotine dependence, unspecified, uncomplicated; Z79.82 Long term (current) use of aspirin; Z86.718 Personal history of other venous thrombosis and embolism; Z82.49 Family history of ischemic heart disease and other diseases of the circulatory system
CPT/HCPCS: 36415; 71045; 71275; 80048; 80053; 80061; 83036; 83735; 83880; 84443; 84484; 85025; 85378; 93005; 93306; 93458; 93970; 96361; 96367; 96372; 96374; 96376; 99152; 99153; 99285; C1769; C1887; C1894; G0378; J1644; J1650; J2060; J2250; J2405; J3010; J3490; J7030; Q9967

== ENCOUNTER → 2022-12-24 15:14 | Outpatient (BNVA) | payer MEDICAID, SELFPAY | PROVIDERS: PCP Family Medicine; Visit Provider Nurse Practitioner Family | DX: I25.110 Atherosclerotic heart disease of native coronary artery with unstable angina pectoris (principal); I10 Essential (primary) hypertension | CPT/HCPCS: 36415; 80048; 83880 ==

== ENCOUNTER 2023-01-15 09:55 | Outpatient (CLI) | payer MEDICAID, SELFPAY ==
[2023-01-15 10:14] VITALS: PULSE 70; RESP 18; O2SAT 99
[2023-01-15] MEDS: albuterol 2.5 mg/3 mL Neb INHALATION (10:14)
[2023-01-15 10:19] VITALS: PULSE 79
== END 2023-01-15 09:56 | disposition home or self-care (01) ==
LOC: RT 09:57
PROVIDERS: PCP Family Medicine; Visit Provider Nurse Practitioner Family
DX: J43.9 Emphysema, unspecified (principal)
CPT/HCPCS: 36415; 82785; 86003; 94060; 94726; 94729; J7613

== ENCOUNTER → 2023-07-18 10:38 | Outpatient (BNVA) | payer MEDICAID, OTHER, SELFPAY | PROVIDERS: PCP Family Medicine; Visit Provider Emergency Medicine | DX: J02.9 Acute pharyngitis, unspecified (principal); B34.9 Viral infection, unspecified | CPT/HCPCS: 87071; 87400; 87880 ==

== ENCOUNTER 2023-10-23 13:46 | Emergency (ER) | payer MEDICAID, SELFPAY ==
--- NOTE | 2023-10-23 13:47 | XRR_ITS ---
PROCEDURE INFORMATION: Exam: XR Chest Exam date and time: 10/23/2023 2:26 PM Age: 52 years old Clinical indication: Pain; Angina pectoris; Additional info: Cp TECHNIQUE: Imaging protocol: Radiologic exam of the chest. Views: 1 view. COMPARISON: CT angio chest PE protcl [id number] 12/18/2022 8:04 AM FINDINGS: Limitations: A minimal portion of the left lung apex is obscured . Lungs: Clear. Pleural spaces: No pleural effusion identified. Heart/Mediastinum: The heart is not enlarged. The mediastinum is not enlarged. Bones/joints: No acute osseous abnormality identified. XR/XR chest 1V portable [id number] IMPRESSION: No acute cardiopulmonary abnormality identified.
--- NOTE | 2023-10-23 13:50 | ECG_ITS ---
[facility] Test Date: 2023-10-23 Pat Name: Marcella Whitley Department: Room: Gender: Female Sorter Pricer: : 1970 Requested By: Fabricio Quintero Order Number: [id number] Nicole MD: Isrrael Felix M.D. Measurements Intervals [place] Rate: 108 P: 46 [place]: 152 QRS: -34 QRSD: 89 T: 58 QT: 319 QTc: 429 Interpretive Statements SINUS TACHYCARDIA LEFT AXIS DEVIATION [QRS AXIS < -30] LOW QRS VOLTAGE IN PRECORDIAL LEADS [QRS DEFLECTION < 1.0 mV IN CHEST LEADS] POSSIBLE RIGHT VENTRICULAR CONDUCTION DELAY [RSR (QR) IN V1/V2] ANTERIOR MYOCARDIAL INFARCTION , PROBABLY OLD [40+ ms Q WAVE AND/OR ST/T ABNORMALITY IN V3/V4] PROBABLE INFERIOR MYOCARDIAL INFARCTION , PROBABLY OLD [35 ms Q WAVE IN II/aVF] Compared to ECG 12/17/2022 02:37:11 Left-axis deviation now present Low QRS voltage now present Myocardial infarct finding now present Sinus rhythm no longer present Electronically Signed On 10-24-2023 9:30:13 AUTOMATION SOFTWARE ENGINEER by Isrrael Felix M.D. [id number]
[2023-10-23 13:52] VITALS: BP 138/64; PULSE 113; RESP 16; TEMP 36.5; O2SAT 98; BMI 33.7
[2023-10-23 14:24] LABS: Basophils # 0.1 10^3/uL (0.0-0.1); Basophils % 0.6 %; Eosinophils # 0.1 10^3/uL (0.0-0.8); Eosinophils % 0.8 %; Hematocrit 47.2 % (36-47); Lymphocytes # 2.8 10^3/uL (0.8-4.8); Lymphocytes % 29.8 %; Mean Corpuscular HGB Conc 32.2 g/dL (30-55); Mean Corpuscular Hemoglobin 27.1 pg (27-33); Mean Corpuscular Volume 84.3 fl (85-98); Mean Platelet Volume 10.4 fL (7.4-10.4); Monocytes # 0.5 10^3/uL (0.2-0.9); Monocytes % 5.6 %; Neutrophils # 5.93 10^3/uL (1.8-7.7); Nucleated Red Blood Cells % 0 %; Platelet Count 268 10^3/cmm (157-399); Red Cell Distribution Width 13.1 % (12.1-15.1); White Blood Count 9.43 10^3/uL (3.29-11.43)
[2023-10-23 14:31] LABS: INR 0.96 (0.8-1.2)
--- NOTE | 2023-10-23 14:35 | W.ED.CHESTPA ---
HPI - Chest Pain General: Chief Complaint: Chest Pain Stated Complaint: chest pain Time Seen by Provider: 10/23/23 14:14 Source: patient Mode of arrival: ambulatory History of Present Illness: 52-year-old female presents emergency room complaining of left upper chest pain worse when she takes a brief deep breath worse with palpation. She has not had any fever sweats or chills or productive cough she has had a history of DVT in the past she is mildly tachycardic on arrival. She was previously on oral anticoagulation was stopped because of side effects. MD complaint: chest pain Onset (ago): week(s) Timing of current episode: episodic Prior episodes: Yes Pain location: left chest Pain radiation: none Quality: sharp Relieving factors: remaining still Exacerbating factors: inspiration and palpation Associated symptoms: Deny abdominal pain, diaphoresis, dyspnea, fever(s), leg edema, nausea, palpitations, sense of impending doom, syncope or vomiting Treatment prior to arrival: none Review of Systems Const: Denies: fever(s), chills or diaphoresis Card: Denies: chest pain, palpitations or syncope Resp: Denies: dyspnea GI: Denies: abdominal pain, nausea or vomiting : Denies: dysuria, urinary frequency or urinary urgency Musc: Denies: neck pain or back pain Skin/Breast: Denies: rash PFSH ED PFSH: Medical History Psychiatric care History of seizure History of traumatic head injury Intracranial hemorrhage Benign essential HTN Uterine fibroid DVT (deep venous thrombosis) Surgical History History of laparotomy History of cholecystectomy History of tonsillectomy Family History Mother Cancer cervical ovarian Grandmother Cancer maternal-breast Family/Other Cancer [id number] Other CAD (coronary artery disease) Chronic kidney disease (CKD) Diabetes Hypertension Lung disease Psychiatric illness Denies family history of Clotting disorder Dementia Anesthesia complication Bleeding disorder Social History Smoking and tobacco/nicotine status: current every day tobacco/nicotine user cigarettes Packs smoked per day: 1 Years cigarettes smoked: 35 Substance/Drug Use: former Lives independently: Yes Marital status: Current occupational status: disabled Physical Exam Const: COMMON NORMALS: no acute distress GENERAL APPEARANCE: cooperative and comfortable ORIENTATION/CONSCIOUSNESS: Yes awake, Yes oriented to person, Yes oriented to place and Yes oriented to time HENMT: COMMON NORMALS: normocephalic, atraumatic and hearing grossly normal bilaterally HEAD & SCALP: normocephalic and atraumatic Resp: COMMON NORMALS: normal respiratory effort, No retractions, No use of accessory muscles and clear to auscultation bilaterally AUSCULTATION: clear to auscultation bilaterally Cardio: COMMON NORMALS: regular rate, regular rhythm and No murmurs present (Cardio) RATE: regular rate RHYTHM: regular rhythm GI: COMMON NORMALS: Soft to palpation and No hepatosplenomegaly present AUSCULTATION: Yes normoactive bowel sounds PALPATION: Yes Soft to palpation, No Tenderness to palpation present (GI), No Guarding due to palpation present (GI) and Yes No hepatosplenomegaly present Extremity: COMMON NORMALS: normal to inspection, capillary refill normal, no clubbing, cyanosis or edema, no calf tenderness and no pedal edema Neuro: SENSORIUM/ORIENTATION: Yes oriented to person, Yes oriented to place and Yes oriented to time Skin: COMMON NORMALS: no rashes or lesions noted GENERAL SKIN EXAM: no rashes or lesions noted Course Vital Signs: Vital signs: Vital Signs Temperature 97.7 F 10/23/23 13:52 Pulse Rate 94 10/23/23 17:31 Respiratory Rate 16 10/23/23 13:52 Blood Pressure 107/79 10/23/23 17:31 Pulse Oximetry 96 10/23/23 16:00 Oxygen Delivery Me thod Room Air 10/23/23 16:00 MDM - Chest Pain Medical Decision Making Labs and imaging reviewed no acute changes. D-dimer is negative. Troponins negative. No acute ST changes on EKG. Discharge home more likely pleuritic chest pain return if has further problems. Medical Records I reviewed the patient's medical records. Lab Data I reviewed the patient's lab results. 10/23/23 14:09 10/23/23 14:09 Radiology Impressions Chest X-Ray 10/23/23 13:47 IMPRESSION: No acute cardiopulmonary abnormality identified. Laboratory Results WBC 9.43 10^3/uL (3.29-11.43) 10/23/23 14:09 RBC 5.60 10^6/uL (3.85-5.65) 10/23/23 14:09 Hgb 15.20 g/dL (11.27-16.99) 10/23/23 14:09 Hct 47.2 % (36-47) H 10/23/23 14:09 MCV 84.3 fl (85-98) L 10/23/23 14:09 MCH 27.1 pg (27-33) 10/23/23 14:09 MCHC 32.2 g/dL (30-55) 10/23/23 14:09 RDW 13.1 % (12.1-15.1) 10/23/23 14:09 Plt Count 268 10^3/cmm (157-399) 10/23/23 14:09 MPV 10.4 fL (7.4-10.4) 10/23/23 14:09 Neut % (Auto) 63.0 % 10/23/23 14:09 Lymph % (Auto) 29.8 % 10/23/23 14:09 [place] % (Auto) 5.6 % 10/23/23 14:09 Eos % (Auto) 0.8 % 10/23/23 14:09 Baso % (Auto) 0.6 % 10/23/23 14:09 Neut # (Auto) 5.93 10^3/uL (1.8-7.7) 10/23/23 14:09 Lymph # (Auto) 2.8 10^3/uL (0.8-4.8) 10/23/23 14:09 [place] # (Auto) 0.5 10^3/uL (0.2-0.9) 10/23/23 14:09 Eos # (Auto) 0.1 10^3/uL (0.0-0.8) 10/23/23 14:09 Baso # (Auto) 0.1 10^3/uL (0.0-0.1) 10/23/23 14:09 Nucleated RBC % (auto) 0 % 10/23/23 14:09 Nucleated RBCs # 0.0 /100WBC 10/23/23 14:09 PT 13.10 SECONDS (12.1-14.9) 10/23/23 14:09 INR 0.96 (0.8-1.2) 10/23/23 14:09 D-Dimer 0.38 ug/mLFEU (0-0.59) 10/23/23 14:25 Sodium 141 mmol/L (136-145) 10/23/23 14:09 Potassium 4.8 mmol/L (3.5-5.1) 10/23/23 14:09 Chloride 102 mmol/L (98-107) 10/23/23 14:09 Carbon Dioxide 25 mmol/L (22-29) 10/23/23 14:09 Anion Gap 18.8 (5-19) 10/23/23 14:09 BUN 23 mg/dL (6-20) H 10/23/23 14:09 Creatinine 1.1 mg/dL (0.5-0.9) H 10/23/23 14:09 GFR Calculation 52.2 mL/min (90-130) L 10/23/23 14:09 Glucose 157 mg/dL (65-115) H 10/23/23 14:09 Calculated Osmolality 299 mOsm/kg (285-295) H 10/23/23 14:09 Calcium 9.5 mg/dL (8.5-10.5) 10/23/23 14:09 Total Bilirubin 0.3 mg/dL (0.15-1.2) 10/23/23 14:09 AST 19 U/L (0-32) 10/23/23 14:09 ALT 29 U/L (0-33) 10/23/23 14:09 Alkaline Phosphatase 70 U/L (35-105) 10/23/23 14:09 Troponin T Baseline < 6 ng/L (0-10) 10/23/23 14:09 Troponin T 120 Minute 6.00 ng/L (0-10) 10/23/23 16:15 Delta Troponin T 0.71048 ABS# (0-10) 10/23/23 16:15 Total Protein 7.2 g/dL (6.6-8.7) 10/23/23 14:09 Albumin 4.7 g/dL (3.5-5.2) 10/23/23 14:09 Globulin 2.5 g/dL (1.3-4.6) 10/23/23 14:09 Lipase 53 U/L (13-60) 10/23/23 14:09 All radiology interpretation(s) finalized by discharge Discharge Plan Discharge Patient Disposition: Home Clinical Impression: Pleuritic chest pain Condition: Stable Prescriptions: New hydrocodone-acetaminophen 5-325 mg tablet 1 tab PO Q6H PRN (Reason: pain) Qty: 10 0RF diclofenac sodium 75 mg tablet,delayed release (DR/EC) 75 mg PO Q12H PRN (Reason: pain) Qty: 20 0RF No Action metoprolol tartrate 50 mg tablet 50 mg PO BID Qty: 180 3RF albuterol sulfate [Ventolin HFA] 90 mcg/actuation HFA aerosol inhaler See Rx Instructions .ROUTE .COMPLEX Qty: 18 2RF Dose Instruction: INHALE 1 PUFF EVERY 6 HOURS NEEDED FOR SHORTNESS OF BREATH OR WHEEZING Rx Instructions: INHALE 1 PUFF EVERY 6 HOURS NEEDED FOR SHORTNESS OF BREATH OR WHEEZING nitroglycerin 0.4 mg tablet, sublingual See Rx Instructions .ROUTE .COMPLEX Qty: 25 0RF Dose Instruction: PLACE 1 TABLET SUBLINGUALLY EVERY 5 MINUTES NEEDED FOR CHEST PAIN; DO NOT EXCEED 3 DOSES PER EPISODE Rx Instructions: PLACE 1 TABLET SUBLINGUALLY EVERY 5 MINUTES NEEDED FOR CHEST PAIN; DO NOT EXCEED 3 DOSES PER EPISODE Symbicort 80-4.5 mcg/actuation HFA aerosol inhaler 1 inh inhalation BID Qty: 10.2 0RF aspirin 81 mg tablet,delayed release (DR/EC) 81 mg PO DAILY Qty: 30 0RF atorvastatin 40 mg tablet 40 mg PO QPM amlodipine 10 mg tablet 10 mg PO QPM zolpidem 5 mg tablet 5 mg PO BEDTIME PRN (Reason: Sleep) Discharge Orders: Discharge ED (Routine); Ordered 10/23/23 Ordered By: Kevin Bertrand Referrals: Jose Waddell MD [Primary Care Provider] - Discharge Diet: Usual diet Discharge Activity: Increase activity as tolerated Patient Instructions: Opioid Safety, Pain Management Activity Restrictions/Additional Instructions: Thank you for choosing [facility] for your healthcare needs today. Please realize this is an emergency room and that we are providing you with a medical screening exam and this may not be complete and all inclusive of all the testing and or work up that you may need to determine your ailment or severity of your illness. It is very important that you follow up as instructed or that you return to the Emergency Department should you have concerns or if your condition changes or worsens in any way. Use diclofenac and hydrocodone as needed for pain follow-up with Dr. Norton Coding Level of Care Code ED Director Security Risk Management for Aria Ramirez
[2023-10-23 14:36] LABS: Alanine Aminotransferase 29 U/L (0-33); Albumin Level 4.7 g/dL (3.5-5.2); Alkaline Phosphatase 70 U/L (35-105); Anion Gap 18.8 (5-19); Aspartate Amino Transferase 19 U/L (0-32); Blood Urea Nitrogen 23 mg/dL (6-20); Calcium 9.5 mg/dL (8.5-10.5); Carbon Dioxide 25 mmol/L (22-29); Chloride 102 mmol/L (98-107); Globulin 2.5 g/dL (1.3-4.6); Glomerular Filtration Rate 52.2 mL/min (90-130); Glucose 157 mg/dL (65-115); Lipase 53 U/L (13-60); Osmolality Calculated 299 mOsm/kg (285-295); Potassium 4.8 mmol/L (3.5-5.1); Sodium 141 mmol/L (136-145); Total Bilirubin 0.3 mg/dL (0.15-1.2); Total Protein 7.2 g/dL (6.6-8.7)
[2023-10-23 14:38] LABS: Troponin(5th) Baseline < 6 ng/L (0-10)
[2023-10-23 15:00] VITALS: BP 136/94; PULSE 96; O2SAT 96
[2023-10-23 15:23] LABS: D Dimer 0.38 ug/mLFEU (0-0.59)
--- NOTE | 2023-10-23 15:48 | ECG_ITS ---
[facility] Test Date: 2023-10-23 Pat Name: Marcella Whitley Department: Room: Gender: Female Loan Associate: : 1970 Requested By: Fabricio Quintero Order Number: [id number] Nicole MD: Isrrael Felix M.D. Measurements Intervals [place] Rate: 92 P: 49 [place]: 163 QRS: -36 QRSD: 97 T: 55 QT: 349 QTc: 432 Interpretive Statements SINUS RHYTHM LEFT AXIS DEVIATION [QRS AXIS < -30] LOW QRS VOLTAGE IN PRECORDIAL LEADS [QRS DEFLECTION < 1.0 mV IN CHEST LEADS] INCOMPLETE RIGHT BUNDLE BRANCH BLOCK [90+ ms QRS DURATION, TERMINAL R IN V1/V2, 40+ ms S IN I/aVL/V4/V5/V6] PROBABLE ANTERIOR MYOCARDIAL INFARCTION , OF INDETERMINATE AGE [35 ms Q WAVE IN V3/V4] PROBABLE INFERIOR MYOCARDIAL INFARCTION , PROBABLY OLD [35 ms Q WAVE IN II/aVF] Compared to ECG 10/23/2023 13:50:57 Incomplete right bundle-branch block now present Sinus tachycardia no longer present Myocardial infarct finding still present Electronically Signed On 10-24-2023 9:31:39 SCALE MANAGER by Isrrael Felix M.D. [id number]
[2023-10-23 16:00] VITALS: BP 126/60; PULSE 94; O2SAT 96
[2023-10-23 16:43] LABS: Troponin 5 2HR Delta 0.00001 ABS# (0-10)
[2023-10-23] MEDS: ketorolac 30 mg/mL INJ IVP (17:28)
[2023-10-23 17:31] VITALS: BP 107/79; PULSE 94
== END 2023-10-23 17:38 | disposition home or self-care (01) ==
PROVIDERS: Emergency Medicine; Emergency Provider Family Medicine; PCP Family Medicine
DX: R09.1 Pleurisy (principal); Z79.82 Long term (current) use of aspirin; F17.210 Nicotine dependence, cigarettes, uncomplicated; I10 Essential (primary) hypertension
CPT/HCPCS: 36415; 71045; 80053; 83690; 84484; 85025; 85378; 85610; 93005; 96374; 99285; J1885

== ENCOUNTER 2024-01-16 11:32 | Outpatient (CLI) | payer MEDICAID, SELFPAY ==
--- NOTE | 2024-01-16 12:00 | CT_ITS ---
WS: [id number] LDCT LUNG CANCER SCREENING TECHNIQUE: Noncontrast CT of the chest with coronal and sagittal reformatted images. CLINICAL INFORMATION: Annual follow up COMPARISON: None. DLP: 113.81 mGy.cm DIvol: Mean CTDIvol: 2.60 (mGy) All CT scans at [facility] use at least one of these dose optimization techniques: automat ed exposure control; mA and/or kV adjustment per patient size (includes targeted exams where dose is matched to clinical indication); or iterative reconstruction. FINDINGS: A few small micronodules along the RIGHT major fissure largest measuring 4 mm laterally. Sm all noncalcified nodule LEFT upper lobe laterally measuring 4 mm. 4 mm nodule LEFT upper lobe anterio rly. Tiny subpleural nodule LEFT upper lobe laterally No mediastinal or hilar lymphadenopathy. Aortic calcification. No axillary lymphadenopathy. Normal GE junction. Hepatomegaly. Diffuse fatty infiltration of the liver. This is partially visualiz ed. Cholecystectomy clips. Adrenal glands are normal. Mild thoracic kyphosis. Mild thoracic curve. CT/CT lung screening [id number] IMPRESSION: LUNG-RADS: 2-Benign Appearance or Behavior FOLLOW UP: 12 Month: Continue annual screening with LDCT
== END 2024-01-16 11:33 | disposition home or self-care (01) ==
LOC: RAD 11:32
PROVIDERS: PCP Family Medicine; Visit Provider Internal Medicine Pulmonary Disease
DX: Z71.6 Tobacco abuse counseling (principal); J43.9 Emphysema, unspecified; Z12.2 Encounter for screening for malignant neoplasm of respiratory organs
CPT/HCPCS: 71271

== ENCOUNTER → 2024-02-25 14:39 | Outpatient (BNVA) | payer MEDICAID, SELFPAY | PROVIDERS: PCP Family Medicine; Visit Provider Family Medicine | DX: R73.03 Prediabetes (principal) | CPT/HCPCS: 80053; 83036; 84443 ==

== ENCOUNTER → 2024-03-03 15:19 | Outpatient (BNVA) | payer MEDICAID, SELFPAY | PROVIDERS: PCP Family Medicine; Visit Provider Podiatrist Foot & Ankle Surgery | DX: M79.671 Pain in right foot (principal); M79.672 Pain in left foot; M21.612 Bunion of left foot; M76.71 Peroneal tendinitis, right leg; M77.52 Other enthesopathy of left foot and ankle | CPT/HCPCS: 73630 ==

== ENCOUNTER 2024-03-10 22:01 | Emergency (ER) | payer MEDICAID, SELFPAY ==
[2024-03-10 22:10] VITALS: BP 150/96; PULSE 80; RESP 18; TEMP 36.7; O2SAT 95
--- NOTE | 2024-03-10 23:36 | W.ED.SKABFB ---
HPI - Skin/Abscess/Foreign Bdy General: Chief complaint: Skin/Abscess/Foreign Body Stated complaint: spider bite absessing swelling fast Time Seen by Provider: 03/10/24 23:33 History of Present Illness: 53-year-old female comes in today with a insect bite to her left dorsal hand. Patient reports that it occurred about 2 hours prior to arrival. Patient was concerned due to increased swelling. Patient thinks that it might have been a brown recluse spider. Patient states that her grandson was bit by a brown recluse just 2 weeks ago. Patient appears nontoxic. Patient appears anxious. Review of Systems General: Reports: 10 or more systems reviewed and unremarkable except in HPI and below PFSH ED PFSH: Medical History Pre-diabetes Psychiatric care History of seizure History of traumatic head injury Intracranial hemorrhage Benign essential HTN Uterine fibroid DVT (deep venous thrombosis) Surgical History History of laparotomy History of cholecystectomy History of tonsillectomy Family History Mother Cancer cervical ovarian Grandmother Cancer maternal-breast Family/Other Cancer [id number] Other CAD (coronary artery disease) Chronic kidney disease (CKD) Diabetes Hypertension Lung disease Psychiatric illness Denies family history of Clotting disorder Dementia Anesthesia complication Bleeding disorder Social History Smoking and tobacco/nicotine status: current every day tobacco/nicotine user (1 ppd) cigarettes Packs smoked per day: 1 Years cigarettes smoked: 35 Substance/Drug Use: former Lives independently: Yes Marital status: Current occupational status: disabled Physical Exam Const: COMMON NORMALS: alert HENMT: COMMON NORMALS: normocephalic HEAD & SCALP: normocephalic Neck/C-Spine: COMMON NORMALS: full ROM Resp: COMMON NORMALS: normal respiratory effort and clear to auscultation bilaterally AUSCULTATION: clear to auscultation bilaterally Cardio: COMMON NORMALS: regular rate and regular rhythm RATE: regular rate RHYTHM: regular rhythm Extremity: LEFT UPPER EXTREMITY: Yes hand & digits (Dorsal swelling) Neuro: SENSORIUM/ORIENTATION: Yes alert Skin: COMMON NORMALS: turgor normal GENERAL SKIN EXAM: turgor normal Course Vital Signs: Vital signs: Vital Signs Temperature 98.0 F 03/10/24 22:10 Pulse Rate 80 03/10/24 22:10 Respiratory Rate 18 03/10/24 22:10 Blood Pressure 150/96 03/10/24 22:10 Pulse Oximetry 95 03/10/24 22:10 Oxygen Delivery Me thod Room Air 03/10/24 22:10 MDM - Skin/Abscess/Foreign Bdy Medicial Decision Making 53-year-old female comes in today for concerns of insect bite to the dorsal left hand. On exam patient appears nontoxic. Patient appears in no acute distress. Respirations are even lungs are clear to auscultation. Patient has some swelling to the dorsal left hand with normal range of motion. Minimal redness is noted. Differential diagnosis local reaction insect bite, cellulitis, abscess. No sign of abscess or serious infection is noted. The patient most likely has a local reaction to insect bite or sting. Patient is concerned that it may be a brown recluse. Patient was given 10 mg dexamethasone to help with swelling and discomfort. Patient will be placed on doxycycline for prophylaxis for possible infection. Patient reports understanding agreed to plan. No radiology studies performed this visit Discharge Plan Discharge Patient Disposition: Home Clinical Impression: Insect bite of hand, left Qualifiers: Encounter type: initial encounter Qualified Code(s): S60.562A - Insect bite (nonvenomous) of left hand, initial encounter Condition: Stable Prescriptions: New doxycycline hyclate 100 mg capsule 100 mg PO BID 7 Days Qty: 14 0RF No Action nitroglycerin 0.4 mg tablet, sublingual See Rx Instructions .ROUTE .COMPLEX Qty: 25 0RF Dose Instruction: PLACE 1 TABLET SUBLINGUALLY EVERY 5 MINUTES NEEDED FOR CHEST PAIN; DO NOT EXCEED 3 DOSES PER EPISODE Rx Instructions: PLACE 1 TABLET SUBLINGUALLY EVERY 5 MINUTES NEEDED FOR CHEST PAIN; DO NOT EXCEED 3 DOSES PER EPISODE albuterol sulfate [Ventolin HFA] 90 mcg/actuation HFA aerosol inhaler See Rx Instructions .ROUTE .COMPLEX Qty: 18 2RF Dose Instruction: INHALE 1 PUFF EVERY 6 HOURS NEEDED FOR SHORTNESS OF BREATH OR WHEEZING Rx Instructions: INHALE 1 PUFF EVERY 6 HOURS NEEDED FOR SHORTNESS OF BREATH OR WHEEZING zolpidem 5 mg tablet 5 mg PO BEDTIME PRN (Reason: Sleep) Qty: 30 0RF metoprolol tartrate 50 mg tablet 50 mg PO BID Qty: 180 3RF metformin 500 mg tablet extended release 24 hr 500 mg PO BID Qty: 60 1RF amlodipine 10 mg tablet 10 mg PO QPM Qty: 30 0RF Symbicort 80-4.5 mcg/actuation HFA aerosol inhaler 1 inh inhalation BID Qty: 10.2 3RF atorvastatin 40 mg tablet 40 mg PO QPM Qty: 30 0RF aspirin 81 mg tablet,delayed release (DR/EC) 81 mg PO DAILY Qty: 30 0RF Discharge Orders: Discharge ED (Routine); Ordered 03/10/24 Ordered By: Jakob Bailey Referrals: Jose Waddell MD [Primary Care Provider] - Discharge Diet: Usual diet Discharge Activity: Increase activity as tolerated Patient Instructions: Brown Recluse Spider Bite (ED) Activity Restrictions/Additional Instructions: You have been given a dose of dexamethasone to help with the swelling and reaction from the insect bite. You have also been given doxycycline to treat for any secondary infection from the insect bite. Drink plenty water and fluids with antibiotics. You may use Benadryl and ibuprofen for discomfort. Follow-up with primary care in 3 to 5 days for recheck. Return to ED for new concerns. Coding Level of Care Code ED Protective Signal Operations Supervisor for Aria Ramirez
[2024-03-11] MEDS: dexamethasone 10 mg/mL INJ IM (00:18)
[2024-03-11] MEDS: doxycycline 100 mg Tablet PO (00:19)
== END 2024-03-11 00:24 | disposition home or self-care (01) ==
PROVIDERS: Emergency Provider Nurse Practitioner Family; PCP Family Medicine
DX: S60.562A Insect bite (nonvenomous) of left hand, initial encounter (principal); Z79.82 Long term (current) use of aspirin; Z79.84 Long term (current) use of oral hypoglycemic drugs; F17.210 Nicotine dependence, cigarettes, uncomplicated; I10 Essential (primary) hypertension; W57.XXXA Bitten or stung by nonvenomous insect and other nonvenomous arthropods, initial encounter
CPT/HCPCS: 96372; 99284; J1100

== ENCOUNTER → 2024-06-02 12:46 | Outpatient (BNVA) | payer MEDICAID, SELFPAY | PROVIDERS: PCP Family Medicine; Visit Provider Nurse Practitioner Family | DX: R30.0 Dysuria (principal) | CPT/HCPCS: 87491; 87591; 87661 ==

== ENCOUNTER 2024-07-12 11:35 | Emergency (ER) | payer MEDICAID, SELFPAY ==
[2024-07-12 12:46] VITALS: BP 138/94; PULSE 98; RESP 20; TEMP 36.8; O2SAT 98; BMI 30.7
--- NOTE | 2024-07-12 13:32 | ECG_ITS ---
[facility] Test Date: 2024-07-12 Pat Name: Marcella Whitley Department: Room: Gender: Female Warp Dyeing Tender: : 1970 Requested By: Fabricio Quintero Order Number: [id number] Nicole MD: Yoana Jaramillo M.D. Measurements Intervals [place] Rate: 71 P: -11 TX: 138 QRS: -21 QRSD: 91 T: 45 QT: 375 QTc: 408 Interpretive Statements SINUS RHYTHM LOW QRS VOLTAGE IN PRECORDIAL LEADS [QRS DEFLECTION < 1.0 mV IN CHEST LEADS] INCOMPLETE RIGHT BUNDLE BRANCH BLOCK [90+ ms QRS DURATION, TERMINAL R IN V1/V2, 40+ ms S IN I/aVL/V4/V5/V6] POSSIBLE ANTERIOR MYOCARDIAL INFARCTION , PROBABLY OLD [30 ms Q WAVE IN V3/V4, OR R < 0.2 mV IN V4] INFERIOR MYOCARDIAL INFARCTION , PROBABLY OLD [40+ ms Q WAVE AND/OR ST/T ABNORMALITY IN II/aVF] Compared to ECG 10/23/2023 15:48:12 Left-axis deviation no longer present Myocardial infarct finding still present Electronically Signed On 07-12-2024 23:54:55 CDT by Yoana Jaramillo M.D. [id number]
--- NOTE | 2024-07-12 13:32 | XRR_ITS ---
PROCEDURE INFORMATION: Exam: XR Chest Exam date and time: 07/12/2024 1:52 PM Age: 53 years old Clinical indication: Angina pectoris; Patient HX: Dizziness and chest pain that started 2 weeks ago. PT states we are pretty sure i had a heart attack 4 days ago . ; Additional info: Cp TECHNIQUE: Imaging protocol: Radiologic exam of the chest. Views: 1 view. COMPARISON: CT lung screening [id number] 01/16/2024 11:53 AM FINDINGS: Lungs: Linear atelectasis in the left mid lung. No focal consolidation. Pleural spaces: No sizable pleural effusion. No pneumothorax. Heart/Mediastinum: Unremarkable cardiomediastinal silhouette. Bones/joints: The spine demonstrates mild degenerative changes at multiple levels. XR/XR chest 1V portable [id number] IMPRESSION: 1. Left midlung linear atelectasis. 2. No focal consolidation or pleural effusion.
--- NOTE | 2024-07-12 13:46 | W.ED.DIZZY ---
HPI - Dizziness General: Chief Complaint: Dizziness Stated Complaint: pass out, dry mouth, sweatting, trouble talking Time Seen by Provider: 07/12/24 13:32 Source: patient Mode of arrival: ambulatory Limitations: no limitations History of Present Illness: HPI Narrative: 53-year-old female states that over the last 3 to 4 days she has been having increasing chest pain along with exertional dyspnea. States that she is also felt like she is going to pass out. She states she is concerned that she is having a heart attack states she has had a history of some coronary artery disease but has not had stents in the past. She denies any fever denies any vomiting. Associated symptoms: Reports chest pain and syncope; Denies chills, headache(s), nausea or vomiting Related Data Home Medications Medication Instructions Recorded Confirmed cyclobenzaprine 5 mg tablet 5 mg PO TID PRN Muscle Spasm 04/29/24 07/12/24 zolpidem 5 mg tablet (Ambien) 5 mg PO BEDTIME 04/29/24 07/12/24 amlodipine 10 mg tablet 10 mg PO QPM 07/12/24 07/12/24 atorvastatin 40 mg tablet 40 mg PO DAILY 07/12/24 07/12/24 Previous Rx's Medication Instructions Recorded aspirin 81 mg tablet,delayed 81 mg PO DAILY #30 tabs 10/20/21 release nitroglycerin 0.4 mg sublingual See Rx Instructions .Route 09/03/23 tablet .COMPLEX #25 tabs metoprolol tartrate 50 mg tablet 50 mg PO BID #180 tabs 02/06/24 albuterol sulfate 90 mcg/actuation See Rx Instructions .Route 03/25/24 aerosol inhaler (Ventolin HFA) .COMPLEX #18 grams tiotropium bromide 18 mcg capsule 1 cap inhalation DAILY #90 05/15/24 with inhalation device (Spiriva inhalations with HandiHaler) budesonide-formoterol HFA 80 1 inh inhalation BID #10.2 grams 06/18/24 mcg-4.5 mcg/actuation aerosol inhaler (Symbicort) Allergies Allergy/AdvReac Type Severity Reaction Status Date / Time apixaban [From Eliquis] Allergy Unknown Verified 07/12/24 13:01 anesthesia Allergy Severe seizures Uncoded 07/12/24 13:01 Review of Systems Const: Denies: fever(s), chills, body aches or change in appetite ENMT: Denies: throat pain or dental pain Card: Reports: chest pain and syncope Resp: Reports: dyspnea GI: Denies: abdominal pain, nausea, vomiting or diarrhea Musc: Denies: neck pain or back pain Skin/Breast: Denies: rash Neuro: Denies: headache(s) PFSH ED PFSH: Medical History Diabetes Pre-diabetes Psychiatric care History of seizure History of traumatic head injury Intracranial hemorrhage Benign essential HTN Uterine fibroid DVT (deep venous thrombosis) Surgical History History of laparotomy History of cholecystectomy History of tonsillectomy Family History Mother Cancer cervical ovarian Grandmother Cancer maternal-breast Family/Other Cancer [id number] Other CAD (coronary artery disease) Chronic kidney disease (CKD) Diabetes Hypertension Lung disease Psychiatric illness Denies family history of Clotting disorder Dementia Anesthesia complication Bleeding disorder Social History Smoking and tobacco/nicotine status: never used tobacco/nicotine Substance/Drug Use: former Lives independently: Yes Marital status: Current occupational status: disabled Physical Exam Const: COMMON NORMALS: no acute distress, patient oriented x3 and healthy appearing HENMT: COMMON NORMALS: normocephalic and atraumatic HEAD & SCALP: normocephalic and atraumatic Neck/C-Spine: COMMON NORMALS: full ROM and supple Chest: COMMONS NORMALS: normal inspection of the chest Resp: COMMON NORMALS: normal respiratory effort, No retractions, No use of accessory muscles and clear to auscultation bilaterally AUSCULTATION: clear to auscultation bilaterally Cardio: COMMON NORMALS: regular rate, regular rhythm and No murmurs present (Cardio) RATE: regular rate RHYTHM: regular rhythm Extremity: COMMON NORMALS: normal to inspection and full ROM Neuro: COMMON NORMALS: patient oriented x3, moves all extremities and no focal motor deficits Psych: COMMON NORMALS: mental status grossly normal, Normal thought process present and cooperative THOUGHT PROCESS: Normal thought process present Skin: COMMON NORMALS: no rashes or lesions noted and no wounds GENERAL SKIN EXAM: no rashes or lesions noted Course Vital Signs: Vital signs: Vital Signs Temperature 98.2 F 07/12/24 12:46 Pulse Rate 83 07/12/24 15:46 Respiratory Rate 20 H 07/12/24 12:46 Blood Pressure 114/78 07/12/24 15:46 Pulse Oximetry 95 07/12/24 15:46 Oxygen Delivery Me thod Room Air 07/12/24 15:46 Clincial Decision Support The following clinical decision support tools were used to aid in care of the patient HEART Score -> History: Slightly Suspicous, EKG: Normal, Age: 45-64 yrs, Risk Factors: 1 or 2 Risk Factors, Troponin: Baseline Trop <16 ng/L. Resulting HEART Score: 2. MDM - Dizziness Medical Decision Making Patient presents for chest pain along with dyspnea D-dimer troponins here are negative she has no signs of PE no signs of ACS she is to follow-up with her PCP she is to return to the ER if worsening she understands agrees to plan. Medical Records I reviewed the patient's medical records. Lab Data I reviewed the patient's lab results. 07/12/24 14:17 07/12/24 14:17 Radiology Impressions Chest X-Ray 07/12/24 13:32 IMPRESSION: 1. Left midlung linear atelectasis. 2. No focal consolidation or pleural effusion. Chest CTA 07/12/24 14:46 IMPRESSION: 1. No pulmonary embolism. 2. No pneumonia. 3. No mediastinal or hilar adenopathy. 4. Prior cholecystectomy. Laboratory Results WBC 8.39 10^3/uL (3.29-11.43) 07/12/24 14:17 RBC 5.78 10^6/uL (3.85-5.65) H 07/12/24 14:17 Hgb 15.70 g/dL (11.27-16.99) 07/12/24 14:17 Hct 49.2 % (36-47) H 07/12/24 14:17 MCV 85.1 fl (85-98) 07/12/24 14:17 MCH 27.2 pg (27-33) 07/12/24 14:17 MCHC 31.9 g/dL (30-55) 07/12/24 14:17 RDW 13.2 % (12.1-15.1) 07/12/24 14:17 Plt Count 257 10^3/cmm (157-399) 07/12/24 14:17 MPV 10.2 fL (7.4-10.4) 07/12/24 14:17 Neut % (Auto) 59.4 % 07/12/24 14:17 Lymph % (Auto) 33.7 % 07/12/24 14:17 [place] % (Auto) 5.2 % 07/12/24 14:17 Eos % (Auto) 0.8 % 07/12/24 14:17 Baso % (Auto) 0.7 % 07/12/24 14:17 Neut # (Auto) 4.97 10^3/uL (1.8-7.7) 07/12/24 14:17 Lymph # (Auto) 2.8 10^3/uL (0.8-4.8) 07/12/24 14:17 [place]entry # (Auto) 0.4 10^3/uL (0.2-0.9) 07/12/24 14:17 Eos # (Auto) 0.1 10^3/uL (0.0-0.8) 07/12/24 14:17 Baso # (Auto) 0.1 10^3/uL (0.0-0.1) 07/12/24 14:17 Nucleated RBC % (auto) 0 % 07/12/24 14:17 Nucleated RBCs # 0.0 /100WBC 07/12/24 14:17 PT 13.30 SECONDS (12.1-14.9) 07/12/24 14:17 INR 0.99 (0.8-1.2) 07/12/24 14:17 D-Dimer 0.72 ug/mLFEU (0-0.59) H 07/12/24 14:17 Sodium 139 mmol/L (136-145) 07/12/24 14:17 Potassium 4.1 mmol/L (3.5-5.1) 07/12/24 14:17 Chloride 105 mmol/L (98-107) 07/12/24 14:17 Carbon Dioxide 23 mmol/L (22-29) 07/12/24 14:17 Anion Gap 15.1 (5-19) 07/12/24 14:17 BUN 9 mg/dL (6-20) 07/12/24 14:17 Creatinine 0.9 mg/dL (0.5-0.9) 07/12/24 14:17 GFR Calculation 65.5 mL/min (90-130) L 07/12/24 14:17 Glucose 82 mg/dL (65-115) 07/12/24 14:17 Calculated Osmolality 286 mOsm/kg (285-295) 07/12/24 14:17 Calcium 9.0 mg/dL (8.5-10.5) 07/12/24 14:17 Total Bilirubin 0.5 mg/dL (0.15-1.2) 07/12/24 14:17 AST 12 U/L (0-32) 07/12/24 14:17 ALT 15 U/L (0-33) 07/12/24 14:17 Alkaline Phosphatase 82 U/L (35-105) 07/12/24 14:17 Troponin T Baseline < 6 ng/L (0-10) 07/12/24 14:17 Troponin T 120 Minute 6.67 ng/L (0-10) 07/12/24 16:17 Delta Troponin T 0.05827 ABS# (0-10) 07/12/24 16:17 Total Protein 6.9 g/dL (6.6-8.7) 07/12/24 14:17 Albumin 4.6 g/dL (3.5-5.2) 07/12/24 14:17 Globulin 2.3 g/dL (1.3-4.6) 07/12/24 14:17 Lipase 35 U/L (13-60) 07/12/24 14:17 All radiology interpretation(s) finalized by discharge EKG Data EKG 1: I personally reviewed and interpreted this EKG as follows: EKG interpretation date: 07/12/24 EKG interpretation time: 13:47 Interpretation: nsr hr [address] elevation qrs 102 qtc 394 Discharge Plan Discharge Patient Disposition: Home Clinical Impression: Chest pain Condition: Stable Prescriptions: No Action zolpidem [Ambien] 5 mg tablet 5 mg PO BEDTIME cyclobenzaprine 5 mg tablet 5 mg PO TID PRN (Reason: Muscle Spasm) tiotropium bromide [Spiriva with HandiHaler] 18 mcg capsule, w/inhalation device 1 cap inhalation DAILY Qty: 90 3RF Rx Instructions: puncture 1 cap using device; one dose = 2 inhalations nitroglycerin 0.4 mg tablet, sublingual See Rx Instructions .ROUTE .COMPLEX Qty: 25 0RF Dose Instruction: PLACE 1 TABLET SUBLINGUALLY EVERY 5 MINUTES NEEDED FOR CHEST PAIN; DO NOT EXCEED 3 DOSES PER EPISODE Rx Instructions: PLACE 1 TABLET SUBLINGUALLY EVERY 5 MINUTES NEEDED FOR CHEST PAIN; DO NOT EXCEED 3 DOSES PER EPISODE metoprolol tartrate 50 mg tablet 50 mg PO BID Qty: 180 3RF albuterol sulfate [Ventolin HFA] 90 mcg/actuation HFA aerosol inhaler See Rx Instructions .ROUTE .COMPLEX Qty: 18 2RF Dose Instruction: INHALE 1 PUFF(S) BY MOUTH EVERY 6 HOURS NEEDED FOR SHORTNESS OF BREATH ORALLY WHEEZING Rx Instructions: INHALE 1 PUFF(S) BY MOUTH EVERY 6 HOURS NEEDED FOR SHORTNESS OF BREATH ORALLY WHEEZING Symbicort 80-4.5 mcg/actuation HFA aerosol inhaler 1 inh inhalation BID Qty: 10.2 3RF aspirin 81 mg tablet,delayed release (DR/EC) 81 mg PO DAILY Qty: 30 0RF atorvastatin 40 mg tablet 40 mg PO DAILY amlodipine 10 mg tablet 10 mg PO QPM Discharge Orders: Discharge ED (Routine); Ordered 07/12/24 Ordered By: Fabricio Quintero Referrals: Yoana Jaramillo MD [Physician] - 4-7 days Jose Waddell MD [Primary Care Provider] - Discharge Diet: Advance as tolerated Discharge Activity: Resume usual activity Patient Instructions: Chest Pain (ED) Coding Level of Care Code ED Bus And Trolley Inspecting Dispatcher for Aria Ramirez
[2024-07-12 14:26] LABS: Basophils # 0.1 10^3/uL (0.0-0.1); Basophils % 0.7 %; Eosinophils # 0.1 10^3/uL (0.0-0.8); Eosinophils % 0.8 %; Hematocrit 49.2 % (36-47); Lymphocytes # 2.8 10^3/uL (0.8-4.8); Lymphocytes % 33.7 %; Mean Corpuscular HGB Conc 31.9 g/dL (30-55); Mean Corpuscular Hemoglobin 27.2 pg (27-33); Mean Corpuscular Volume 85.1 fl (85-98); Mean Platelet Volume 10.2 fL (7.4-10.4); Monocytes # 0.4 10^3/uL (0.2-0.9); Monocytes % 5.2 %; Neutrophils # 4.97 10^3/uL (1.8-7.7); Neutrophils % 59.4 %; Nucleated Red Blood Cells % 0 %; Platelet Count 257 10^3/cmm (157-399); Red Blood Count 5.78 10^6/uL (3.85-5.65); Red Cell Distribution Width 13.2 % (12.1-15.1); White Blood Count 8.39 10^3/uL (3.29-11.43)
[2024-07-12 14:42] LABS: INR 0.99 (0.8-1.2)
[2024-07-12 14:44] LABS: D Dimer 0.72 ug/mLFEU (0-0.59)
--- NOTE | 2024-07-12 14:46 | CT_ITS ---
WS: [id number] CT CHEST ANGIOGRAPHY WITH REFORMATS HISTORY: sob TECHNIQUE: Contiguous axial images are obtained through the chest during arterial injection of intrav enous contrast. Images are reconstructed to evaluate the pulmonary arteries. MIP imaging also reviewe d. All CT scans at [facility] use at least one of these dose optimization techniques: automat ed exposure control; mA and/or kV adjustment per patient size (includes targeted exams where dose is matched to clinical indication); or iterative reconstruction. CONTRAST: Omnipaque 350; 100 mL IV. DLP: 373.74 mGy.cm COMPARISON: 12/18/2022 Good opacification of the pulmonary arteries. No filling defects or pulmonary emboli. No RIGHT heart strain. Normal size thoracic aorta. Normal size heart. No pericardial or pleural effusions. Mild pulm onary hyperexpansion. No mass or nodule. No pneumonia. No mediastinal or hilar lymph nodes. Mild tricuspid regurgitation into the hepatic veins. Hepatic deanne atosis. Prior cholecystectomy. No adrenal mass. No destructive bone lesions. CT/CT angio chest PE protcl [id number] IMPRESSION: 1. No pulmonary embolism. 2. No pneumonia. 3. No mediastinal or hilar adenopathy. 4. Prior cholecystectomy.
[2024-07-12 14:47] LABS: Troponin(5th) Baseline < 6 ng/L (0-10)
[2024-07-12 14:48] LABS: Alanine Aminotransferase 15 U/L (0-33); Albumin Level 4.6 g/dL (3.5-5.2); Alkaline Phosphatase 82 U/L (35-105); Anion Gap 15.1 (5-19); Aspartate Amino Transferase 12 U/L (0-32); Blood Urea Nitrogen 9 mg/dL (6-20); Carbon Dioxide 23 mmol/L (22-29); Chloride 105 mmol/L (98-107); Creatinine Clr Calc Pharmacy 74.5174; Globulin 2.3 g/dL (1.3-4.6); Glomerular Filtration Rate 65.5 mL/min (90-130); Glucose 82 mg/dL (65-115); Lipase 35 U/L (13-60); Osmolality Calculated 286 mOsm/kg (285-295); Potassium 4.1 mmol/L (3.5-5.1); Sodium 139 mmol/L (136-145); Total Bilirubin 0.5 mg/dL (0.15-1.2); Total Protein 6.9 g/dL (6.6-8.7)
[2024-07-12] MEDS: iohexol 350 mg/mL 500 mL Btl (per mL) IV (14:56)
--- NOTE | 2024-07-12 15:32 | ECG_ITS ---
[facility] Test Date: 2024-07-12 Pat Name: Marcella Whitley Department: Room: Gender: Female Audiovisual Tech: : 1970 Requested By: Fabricio Quintero Order Number: [id number] Nicole MD: Yoana Jaramillo M.D. Measurements Intervals [place] Rate: 67 P: -6 [place]: 140 QRS: -10 QRSD: 102 T: 44 QT: 379 QTc: 400 Interpretive Statements SINUS RHYTHM LOW QRS VOLTAGE IN PRECORDIAL LEADS [QRS DEFLECTION < 1.0 mV IN CHEST LEADS] PATTERN CONSISTENT WITH PULMONARY DISEASE INCOMPLETE RIGHT BUNDLE BRANCH BLOCK [90+ ms QRS DURATION, TERMINAL R IN V1/V2, 40+ ms S IN I/aVL/V4/V5/V6] PROBABLE INFERIOR MYOCARDIAL INFARCTION , PROBABLY OLD [35 ms Q WAVE IN II/aVF] Compared to ECG 07/12/2024 12:51:20 No significant changes Electronically Signed On 07-13-2024 00:51:47 CDT by Yoana Jaramillo M.D. [email or web address]
[2024-07-12 15:46] VITALS: BP 114/78; PULSE 83; O2SAT 95
[2024-07-12 17:19] LABS: Troponin 5 2HR 6.67 ng/L (0-10); Troponin 5 2HR Delta 0.67001 ABS# (0-10)
--- NOTE | 2024-07-13 07:38 | DCPLANNER ---
Message sent to Cardiology for follow up on dizziness and chest pain.
== END 2024-07-12 17:52 | disposition home or self-care (01) ==
PROVIDERS: Emergency Provider Emergency Medicine; PCP Family Medicine
DX: R07.9 Chest pain, unspecified (principal); I25.10 Atherosclerotic heart disease of native coronary artery without angina pectoris; R06.09 Other forms of dyspnea
CPT/HCPCS: 36415; 71045; 71275; 80053; 83690; 84484; 85025; 85378; 85610; 93005; 99285

== ENCOUNTER 2024-09-03 15:12 | Emergency (ER) | payer MEDICAID, SELFPAY ==
[2024-09-03 15:37] VITALS: BP 109/67; PULSE 98; RESP 17; TEMP 36.8; O2SAT 97; BMI 31.4
--- NOTE | 2024-09-03 16:57 | USR_ITS ---
PROCEDURE INFORMATION: Exam: US Duplex Left Lower Extremity Veins, Limited Exam date and time: 09/03/2024 5:19 PM Age: 53 years old Clinical indication: Pain; Leg, lower; Left; Additional info: Pain swelling TECHNIQUE: Imaging protocol: Real-time duplex ultrasound of the left extremity with 2-D lora scale, color Doppler flow and spectral waveform analysis including responses to compression and other maneuvers (when performed) with image documentation. Limited exam focused on the left lower extremity veins. COMPARISON: US transvaginal [id number] 03/13/2020 4:16 PM FINDINGS: Left deep veins: The common femoral, femoral, proximal profunda femoral and popliteal veins are patent without evidence of thrombus and demonstrate normal waveforms. Superficial veins: Saphenofemoral junction is patent without thrombus. No evidence of thrombophlebitis. Soft tissues: Sonographically unremarkable. US/CV venous duplex [facility] [id number] IMPRESSION: 1. No sonographic evidence of deep venous thrombosis in the left lower extremity.
[2024-09-03 17:00] VITALS: BP 112/69; PULSE 91; O2SAT 95
--- NOTE | 2024-09-03 17:17 | XRR_ITS ---
PROCEDURE INFORMATION: Exam: XR Left Knee Exam date and time: 09/03/2024 5:44 PM Age: 53 years old Clinical indication: Knee; Left; Patient HX: RT elbow pain; No known injury TECHNIQUE: Imaging protocol: Radiologic exam of the left knee. Views: 3 views. COMPARISON: [place] [id number] 09/03/2024 5:19 PM FINDINGS: Bones/joints: Mild patellofemoral and medial femorotibial osteoarthritis with small marginal osteophytes. No evidence of acute fracture or subluxation. Small-moderate joint effusion. Soft tissues: No gross soft tissue abnormality. XR/XR knee LT 3V* [id number] IMPRESSION: 1. Small-moderate joint effusion without evidence of acute fracture or subluxation. If there is clinical suspicion for meniscal or ligamentous pathology, consider correlation with follow-up nonemergent MRI.
--- NOTE | 2024-09-03 17:17 | XRR_ITS ---
PROCEDURE INFORMATION: Exam: XR Right Elbow Exam date and time: 09/03/2024 5:39 PM Age: 53 years old Clinical indication: Right; Patient HX: RT elbow pain; No known injury TECHNIQUE: Imaging protocol: Radiologic exam of the right elbow. Views: 3 or more views. COMPARISON: No relevant prior studies available. FINDINGS: Bones/joints: No evidence of fracture or subluxation. No evidence of joint effusion. Radiocapitellar alignment is maintained. Mild ulnotrochlear osteoarthritis. Soft tissues: Grossly unremarkable. XR/XR elbow RT min 3V* [id number] IMPRESSION: 1. No evidence of fracture or subluxation.
--- NOTE | 2024-09-03 17:22 | ED_ITS ---
HPI - Extremity Problem General: Chief complaint: Extremity Injury, Lower Stated complaint: left leg blood clot (Debbie Garcia Reff) Time Seen by Provider: 09/03/24 16:57 History of Present Illness: 53-year-old female presents to the emerg ency room with complaints of leg pain and swelling. She previously had a history of blood clot she actually was on apixaban and had some common complication with that she not listed as an allergy she recently had driven to [place] and back pain and swelling in the popliteal fossa. She has had falls recently denies right knee had no loss consciousness Associated symptoms: Deny chest pain, fever(s) or rash Related Data Home Medications Medication Instructions Recorded Confirmed cyclobenzaprine 5 mg tablet 5 mg PO TID PRN Muscle Spasm 04/29/24 09/02/24 zolpidem 5 mg tablet (Ambien) 5 mg PO BEDTIME 04/29/24 09/02/24 amlodipine 10 mg tablet 10 mg PO QPM 07/12/24 09/02/24 atorvastatin 40 mg tablet 40 mg PO DAILY 07/12/24 09/02/24 Previous Rx's Medication Instructions Recorded aspirin 81 mg tablet,delayed 81 mg PO DAILY #30 tabs 10/20/21 release nitroglycerin 0.4 mg sublingual See Rx Instructions .Route 09/03/23 tablet .COMPLEX #25 tabs metoprolol tartrate 50 mg tablet 50 mg PO BID #180 tabs 02/06/24 albuterol sulfate 90 mcg/actuation See Rx Instructions .Route 03/25/24 aerosol inhaler (Ventolin HFA) .COMPLEX #18 grams tiotropium bromide 18 mcg capsule 1 cap inhalation DAILY #90 05/15/24 with inhalation device (Spiriva inhalations with HandiHaler) budesonide-formoterol HFA 80 1 inh inhalation BID #10.2 grams 06/18/24 mcg-4.5 mcg/actuation aerosol inhaler (Symbicort) amoxicillin 500 mg capsule 500 mg PO BID #20 caps 09/02/24 Allergies Allergy/AdvReac Type Severity Reaction Status Date / Time apixaban [From Eliquis] Allergy Unknown Verified 09/02/24 10:09 anesthesia Allergy Severe seizures Uncoded 09/02/24 10:09 Review of Systems Const: Denies: fever(s) or chills Card: Denies: chest pain Resp: Denies: dyspnea GI: Denies: abdominal pain : Denies: dysuria, urinary frequency or urinary urgency Musc: Denies: neck pain or back pain Skin/Breast: Denies: rash PFSH ED PFSH: Medical History Diabetes Pre-diabetes Psychiatric care History of seizure History of traumatic head injury Intracranial hemorrhage Benign essential HTN Uterine fibroid DVT (deep venous thrombosis) Surgical History History of laparotomy History of cholecystectomy History of tonsillectomy Family History Mother Cancer cervical ovarian Grandmother Cancer maternal-breast Family/Other Cancer [id number] Other CAD (coronary artery disease) Chronic kidney disease (CKD) Diabetes Hypertension Lung disease Psychiatric illness Denies family history of Clotting disorder Dementia Anesthesia complication Bleeding disorder Social History Smoking and tobacco/nicotine status: current every day tobacco/nicotine user cigarettes Packs smoked per day: 1 Years cigarettes smoked: 35 Substance/Drug Use: former Lives independently: Yes Marital status: Current occupational status: disabled Physical Exam Const: COMMON NORMALS: no acute distress GENERAL APPEARANCE: cooperative and comfortable ORIENTATION/CONSCIOUSNESS: Yes awake, Yes oriented to person, Yes oriented to place and Yes oriented to time HENMT: COMMON NORMALS: normocephalic, atraumatic and hearing grossly normal bilaterally HEAD & SCALP: normocephalic and atraumatic Resp: COMMON NORMALS: normal respiratory effort, No retractions, No use of accessory muscles and clear to auscultation bilaterally AUSCULTATION: clear to auscultation bilaterally Cardio: COMMON NORMALS: regular rate, regular rhythm and No murmurs present (Cardio) RATE: regular rate RHYTHM: regular rhythm GI: COMMON NORMALS: Soft to palpation and No hepatosplenomegaly present AUSCULTATION: Yes normoactive bowel sounds PALPATION: Yes Soft to palpation, No Tenderness to palpation present (GI), No Guarding due to palpation present (GI) and Yes No hepatosplenomegaly present Extremity: COMMON NORMALS: normal to inspection, capillary refill normal, no clubbing, cyanosis or edema, no calf tenderness and no pedal edema OTHER: Examination left knee no ligamentous instability or laxity very small joint effusiondeformity with varus or valgus stress. Neuro: SENSORIUM/ORIENTATION: Yes oriented to person, Yes oriented to place and Yes oriented to time Skin: COMMON NORMALS: no rashes or lesions noted GENERAL SKIN EXAM: no rashes or lesions noted Course Vital Signs: Vital signs: Vital Signs Temperature 98.2 F 09/03/24 15:37 Pulse Rate 91 09/03/24 17:00 Respiratory Rate 17 09/03/24 15:37 Blood Pressure 112/69 09/03/24 17:00 Pulse Oximetry 95 09/03/24 17:00 Oxygen Delivery Me thod Room Air 09/03/24 17:00 MDM - Extremity (Nontraumatic) Medical Decision Making Venous duplex negative x-ray of the knee and the elbow if she is complaining of pain were also both negative. Will discharge patient home. She continues to have difficulty with her left knee follow-up with your primary care doctor. Lab Data Radiology Impressions Venous Duplex 09/03/24 16:57 IMPRESSION: 1. No sonographic evidence of deep venous thrombosis in the left lower extremity. Elbow X-Ray 09/03/24 17:17 IMPRESSION: 1. No evidence of fracture or subluxation. Knee X-Ray 09/03/24 17:17 IMPRESSION: 1. Small-moderate joint effusion without evidence of acute fracture or subluxation. If there is clinical suspicion for meniscal or ligamentous pathology, consider correlation with follow-up nonemergent MRI. All radiology interpretation(s) finalized by discharge Discharge Plan Discharge Patient Disposition: Home Clinical Impression: Knee joint pain Condition: Stable Prescriptions: No Action zolpidem [Ambien] 5 mg tablet 5 mg PO BEDTIME cyclobenzaprine 5 mg tablet 5 mg PO TID PRN (Reason: Muscle Spasm) tiotropium bromide [Spiriva with HandiHaler] 18 mcg capsule, w/inhalation device 1 cap inhalation DAILY Qty: 90 3RF Rx Instructions: puncture 1 cap using device; one dose = 2 inhalations amoxicillin 500 mg capsule 500 mg PO BID Qty: 20 0RF nitroglycerin 0.4 mg tablet, sublingual See Rx Instructions .ROUTE .COMPLEX Qty: 25 0RF Dose Instruction: PLACE 1 TABLET SUBLINGUALLY EVERY 5 MINUTES NEEDED FOR CHEST PAIN; DO NOT EXCEED 3 DOSES PER EPISODE Rx Instructions: PLACE 1 TABLET SUBLINGUALLY EVERY 5 MINUTES NEEDED FOR CHEST PAIN; DO NOT EXCEED 3 DOSES PER EPISODE metoprolol tartrate 50 mg tablet 50 mg PO BID Qty: 180 3RF albuterol sulfate [Ventolin HFA] 90 mcg/actuation HFA aerosol inhaler See Rx Instructions .ROUTE .COMPLEX Qty: 18 2RF Dose Instruction: INHALE 1 PUFF(S) BY MOUTH EVERY 6 HOURS NEEDED FOR SHORTNESS OF BREATH ORALLY WHEEZING Rx Instructions: INHALE 1 PUFF(S) BY MOUTH EVERY 6 HOURS NEEDED FOR SHORTNESS OF BREATH ORALLY WHEEZING Symbicort 80-4.5 mcg/actuation HFA aerosol inhaler 1 inh inhalation BID Qty: 10.2 3RF aspirin 81 mg tablet,delayed release (DR/EC) 81 mg PO DAILY Qty: 30 0RF atorvastatin 40 mg tablet 40 mg PO DAILY amlodipine 10 mg tablet 10 mg PO QPM Discharge Orders: Discharge ED (Routine); Ordered 09/03/24 Ordered By: Kevin Bertrand Referrals: Jose Waddell MD [Primary Care Provider] - Discharge Diet: Usual diet Discharge Activity: Increase activity as tolerated Patient Instructions: Opioid Safety, Pain Management Activity Restrictions/Additional Instructions: Thank you for choosing [facility] for your healthcare needs today. It is very important that you follow up as instructed or that you return to the Emergency Department should you have concerns or if your condition changes or worsens in any way. You are seen in the emergency room with complaint of pain and swelling in your leg. Ultrasound of the right leg did not show any evidence of clot or Lazaro's cyst (cyst behind the knee). Suspect you may have some ligamentous strain in the knee from some of the falls you have had in the past or even recently. Follow-up with your primary care doctor they can arrange for further evaluation if you continue to have knee pain. X-rays of your knee and elbow did not show any acute fractures Coding Level of Care Code ED [employer] Specialist for Aria Ramirez
== END 2024-09-03 18:40 | disposition home or self-care (01) ==
PROVIDERS: Emergency Provider Family Medicine; PCP Family Medicine
DX: M25.562 Pain in left knee (principal); Z79.82 Long term (current) use of aspirin; F17.210 Nicotine dependence, cigarettes, uncomplicated; I10 Essential (primary) hypertension
CPT/HCPCS: 73080; 73562; 93971; 99284

== ENCOUNTER → 2024-09-23 16:07 | Outpatient (BNVA) | payer MEDICAID, SELFPAY | PROVIDERS: PCP Family Medicine; Visit Provider Family Medicine | DX: E11.9 Type 2 diabetes mellitus without complications (principal); E78.5 Hyperlipidemia, unspecified | CPT/HCPCS: 80053; 80061; 83036 ==

== ENCOUNTER → 2024-10-25 12:41 | Outpatient (BNVA) | payer MEDICAID, SELFPAY | PROVIDERS: PCP Family Medicine; Visit Provider Nurse Practitioner | DX: M25.462 Effusion, left knee (principal); M25.762 Osteophyte, left knee | CPT/HCPCS: 73560; 73565 ==

== ENCOUNTER → 2025-02-03 14:04 | Outpatient (BNVA) | payer MEDICAID, SELFPAY | PROVIDERS: PCP Family Medicine; Visit Provider Family Medicine | DX: Z72.51 High risk heterosexual behavior (principal) | CPT/HCPCS: 81000; 87491; 87591; 87661 ==

== ENCOUNTER → 2025-04-25 11:12 | Outpatient (BNVA) | payer MEDICAID, SELFPAY | PROVIDERS: PCP Family Medicine; Visit Provider Nurse Practitioner Family | DX: I10 Essential (primary) hypertension (principal); E78.5 Hyperlipidemia, unspecified; R94.31 Abnormal electrocardiogram [ECG] [EKG] | CPT/HCPCS: 36415; 80048; 83880; 85025; 93005 ==

== ENCOUNTER 2025-05-19 12:22 | Outpatient (CLI) | payer MEDICAID, SELFPAY ==
--- NOTE | 2025-05-19 | ECG_ITS ---
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 Interpretive Statements Lung unchanged pre/post procedure; Intraprocedure shortess of breath; Symptoms resoled by discharge PROCEDURE: At the baseline, the patient's blood pressure was 125/95 with a heart rate of 90. The baseline electrocardiogram showed normal sinus rhythm with normal ST-Ts. Poor R wave progression suggesting old anteroseptal VT. Q waves in the inferior leads suggesting old inferior wall VT.. The patient exercised for 7 minutes and 32 seconds on a standard Charly protocol. Patient attained a maximum heart rate of 151 beats per minute(90% of the maximum predicted heart rate) with a blood pressure at the peak exercise of 180/83 mm Hg. The EKG at the peak exercise revealed no significant changes. Patient did not have any chest pain or any significant cardiac arrhythmias with the exercise During the recovery phase, there were no new changes. Blood pressure at the end of the recovery phase was 131/98 mm Hg with a heart rate of 92 per minute. CONCLUSION: 1. No significant EKG response changes with treadmill exercise 2. No exercise-induced chest pain or cardiac arrhythmia 3. Fair exercise tolerance, attained a maximum of 10 point METs Electronically Signed On 05-21-2025 12:24:34 CDT by Yoana Jaramillo M.D. [email or web address] [id number]
--- NOTE | 2025-05-19 12:30 | USCV_ITS ---
Chavez Whitleyia Age: 54 Gender: F : 1970 Exam Date: 05/19/2025 12:51 Ordering Phys: Neelima Sanchez NP Technologist: Exam Location: [facility] [place] Indication: cp Rhythm: Sinus Patient History: Cardiac Medications: Medications in past 24 hours: Contrast: Stress Results Protocol: Charly Total dose(mL): Exercise Duration (min:sec): METS: Resting HR: Resting BP: 125 / 95 Peak HR: Peak BP: / Max Predicted HR: 166 % Max Predicted HR Target HR: 141 Double Product: Stress Summary: BP Response: Reason for Termination: Cardiac Symptoms: ECG Analysis Resting ECG: Stress ECG: Arrhythmia: MEASUREMENTS (Male/Female) Normal Values FINDINGS Need baseline echocardiogram revealed a normal LV size and ejection fraction. Segmental wall motion analysis revealed no gross wall motion abnormalities. No pericardial effusion. With the peak exercise, there was good augmentation of all the segments with no exercise-induced wall motion normalities. During the recovery phase, no new changes were noted. CONCLUSIONS 1. Normal echocardiographic response to exercise. 2. Low probability for coronary ischemia, based on the above findings Dr Yoana Jaramillo MD FACC (Electronically Signed) Final Date: 19 May 2025 21:04 S
[2025-05-19 12:33] VITALS: BMI 29.5
[2025-05-19 13:12] VITALS: BP 131/98; PULSE 96
== END 2025-05-19 12:23 | disposition home or self-care (01) ==
LOC: CDL 12:27
PROVIDERS: PCP Family Medicine; Visit Provider Nurse Practitioner Family
DX: R07.9 Chest pain, unspecified (principal); I49.8 Other specified cardiac arrhythmias; R94.31 Abnormal electrocardiogram [ECG] [EKG]; I25.2 Old myocardial infarction
CPT/HCPCS: 93017; 93350

== ENCOUNTER → 2025-06-09 13:15 | Outpatient (BNVA) | payer MEDICAID, SELFPAY | PROVIDERS: PCP Family Medicine; Visit Provider Orthopaedic Surgery | DX: M50.323 Other cervical disc degeneration at C6-C7 level (principal); M16.11 Unilateral primary osteoarthritis, right hip; R10.2 Pelvic and perineal pain | CPT/HCPCS: 72040; 72170 ==

== ENCOUNTER 2025-06-16 15:57 | Outpatient (CLI) | payer MEDICAID, SELFPAY ==
--- NOTE | 2025-06-16 16:15 | CT_ITS ---
WS: [id number] CT chest wo con [id number] HISTORY: COPD TECHNIQUE: Axial imaging performed through the thorax. Coronal and sagittal reformats are submitted. All CT scans at [facility] use at least one of these dose optimization techniques: automated exposure control; mA and/or kV adjustment per patient size (includes targeted exams where dose is matched to clinical indication); or iterative reconstruction. CONTRAST: None DLP: 441.18 mGy.cm COMPARISON: 07/12/2024 Lungs and central airway: Mild pulmonary hyperexpansion. No pulmonary mass or nodule. No pneumonia. Thin linear atelectasis in the lingula and at the costophrenic angles and anterior RIGHT middle lobe. No pneumonia. Pleura: Normal. No pleural effusion. Heart and pericardium: Normal size heart with no pericardial effusion. Mediastinum and marni: No mediastinum or hilar adenopathy. Vessels: Very minimal atherosclerosis aorta. Normal size aorta and pulmonary artery. Chest wall and lower neck: No soft tissue masses. Upper abdomen: Prior cholecystectomy. Osseous structures: No destructive process. CT/CT chest wo con [id number] IMPRESSION: 1. No pulmonary mass, nodule or pneumonia. 2. No mediastinal or hilar adenopathy. 3. Prior cholecystectomy. 4. Mild pulmonary hyperexpansion.
== END 2025-06-16 15:58 | disposition home or self-care (01) ==
LOC: RAD 16:01
PROVIDERS: PCP Family Medicine; Visit Provider Family Medicine
DX: R06.09 Other forms of dyspnea (principal); J44.9 Chronic obstructive pulmonary disease, unspecified; J98.4 Other disorders of lung; J98.11 Atelectasis; Z90.49 Acquired absence of other specified parts of digestive tract
CPT/HCPCS: 71250

== ENCOUNTER 2025-06-21 12:49 | Outpatient (CLI) | payer MEDICAID, SELFPAY ==
[2025-06-21 13:13] VITALS: PULSE 80; RESP 18; O2SAT 97
== END 2025-06-21 12:50 | disposition home or self-care (01) ==
LOC: RT 12:51
PROVIDERS: PCP Family Medicine; Visit Provider Internal Medicine
DX: J44.9 Chronic obstructive pulmonary disease, unspecified (principal); R94.2 Abnormal results of pulmonary function studies
CPT/HCPCS: 94060; 94729; J7613

== ENCOUNTER 2025-07-25 09:29 | Outpatient (CLI) | payer MEDICAID, SELFPAY ==
--- NOTE | 2025-07-25 09:30 | CT_ITS ---
WS: [id number] CT CHEST ANGIOGRAPHY WITH REFORMATS HISTORY: R06.09 - Other forms of dyspnea TECHNIQUE: Contiguous axial images are obtained through the chest during arterial injection of intravenous contrast. Images are reconstructed to evaluate the pulmonary arteries. MIP imaging also reviewed. All CT scans at [place] use at least one of these dose optimization techniques: automated exposure control; mA and/or kV adjustment per patient size (includes targeted exams where dose is matched to clinical indication); or iterative reconstruction. CONTRAST: Omnipaque 350; 100 mL IV. DLP: 379.75 mGy.cm COMPARISON: 06/16/2025 Good opacification of the pulmonary arteries. No pulmonary embolism is identified. No filling defects are identified in the pulmonary arteries. Mild atherosclerosis aorta. Since the prior examination of 06/16/2025 there is been an increase in size of the LEFT heart. LEFT ventricle appears dilated. No RIGHT heart strain. There is also mild diffuse pulmonary venous congestion which is new. There are a few small reticular nodules in the periphery of both lungs which are new. No areas of dense consolidation. No pneumonia. There is also been an increase in size and number of the mediastinal and hilar lymph nodes. Hilar lymph nodes measure 8 to 9 mm. Hepatic steatosis. Prior cholecystectomy. No adrenal mass. No destructive bone lesions. CT/CT angio chest PE protcl [id number] IMPRESSION: 1. No pulmonary embolism. 2. Increase in size of the LEFT ventricle since the prior study of 06/16/2025. 3. Mild pulmonary edema is new. 4. Subcentimeter but increase in size and number of the hilar lymph nodes. Pro bably reactive.
[2025-07-25] MEDS: iohexol 350 mg/mL 500 mL Btl (per mL) IV (09:56)
== END 2025-07-25 09:30 | disposition home or self-care (01) ==
LOC: RAD 09:31
PROVIDERS: PCP Family Medicine; Visit Provider Internal Medicine
DX: R06.09 Other forms of dyspnea (principal); I51.7 Cardiomegaly; R60.0 Localized edema; R59.0 Localized enlarged lymph nodes; I70.0 Atherosclerosis of aorta; I87.8 Other specified disorders of veins; R91.8 Other nonspecific abnormal finding of lung field; K76.0 Fatty (change of) liver, not elsewhere classified; Z90.49 Acquired absence of other specified parts of digestive tract
CPT/HCPCS: 71275

== ENCOUNTER → 2025-08-24 15:43 | Outpatient (BNVA) | payer MEDICAID, SELFPAY | PROVIDERS: PCP Family Medicine; Visit Provider Obstetrics & Gynecology | DX: Z20.2 Contact with and (suspected) exposure to infections with a predominantly sexual mode of transmission (principal); Z12.4 Encounter for screening for malignant neoplasm of cervix | CPT/HCPCS: 87491; 87591; 87624; 87661 ==